=== PATIENT | female | born 1955 | race Caucasian/White ===

== ENCOUNTER 2020-11-15 00:45 | Emergency (ER) | payer OTHER, SELFPAY ==
--- NOTE | 2020-11-15 | ECG_ITS ---
Test Reason : ELEVATED TROP Blood Pressure : / mmHG Vent. Rate : 062 BPM Atrial Rate : 062 BPM P-R Int : 158 ms QRS Dur : 074 ms QT Int : 456 ms P-R-T Axes : 072 060 064 degrees QTc Int : 462 ms Normal sinus rhythm Normal ECG When compared with ECG of 21-JAN-2019 12:29, No significant change was found Referred By: Generic ED Physician Electronically Signed By:Jewel Willis
--- NOTE | 2020-11-15 | ECG_ITS ---
Test Reason : REPEAT Blood Pressure : / mmHG Vent. Rate : 062 BPM Atrial Rate : 062 BPM P-R Int : 150 ms QRS Dur : 072 ms QT Int : 432 ms P-R-T Axes : 065 049 086 degrees QTc Int : 438 ms Normal sinus rhythm Normal ECG When compared with ECG of 15-NOV-2020 09:45, No significant change was found Referred By: Jewel Willis Electronically Signed By:Jewel Willis
--- NOTE | ~2020-11-15 | CT_ITS ---
EXAMINATION: CT CHEST WITH CONTRAST CLINICAL INFORMATION: Chest pain. COMPARISON: Chest radiograph 11/15/2020. CT chest 05/12/2017. TECHNIQUE: Multidetector volumetric CT imaging of the chest was obtained after the administration of 65 mL of Omnipaque 350 intravenous contrast without immediate adverse reactions. Axial MIP volume rendering provided. Sagittal and coronal reformatted images were obtained. This CT examination was performed using dose optimization techniques as appropriate, variously including the following: *Automated exposure control *Adjustment of mA and/or kV according to patient size (this includes techniques or standardized protocols for targeted exams where dose is matched to indication/reason for exam; i.e. extremities or head) *Use of iterative reconstruction technique DLP: 214 mGy-cm FINDINGS: SUPERVISOR PATCHING: Unremarkable LUNGS: There are a few small subpleural cysts visualized within the right upper lobe. No overt consolidative disease. No discrete pulmonary nodule or mass. Minimal subsegmental atelectasis within the posterior basal segment of the right lower lobe. No pleural effusion or pneumothorax. Mild peribronchial thickening. The trachea and major airways are otherwise patent. MEDIASTINUM: The heart is unremarkable. No pericardial effusion. Scattered atheromatous calcification involves the aortic arch apex. Origins of the major aortic branches are patent. A right peritracheal lymph node measures up to 0.7 cm in short axis and there is a collection of a few small nonspecific aorticopulmonary window lymph nodes. AXILLA: No lymphadenopathy. UPPER ABDOMEN: There is a well marginated low-density cystic lesion located within the right lobe the liver that appears to have slightly increased in size when compared to the CT scan of the abdomen and pelvis from 05/10/2017, now measuring 2.5 cm in diameter. OSSEOUS STRUCTURES: There is no acute osseous finding. No worrisome lytic or blastic osseous lesion. CT/CT chest w con IMPRESSION: No discrete anatomic finding to provide an explanation for this patient's chest pain. No consolidative disease. No pleural or pericardial effusion.
--- NOTE | ~2020-11-15 | XR_ITS ---
EXAMINATION: XR CHEST CLINICAL INFORMATION: Chest pain COMPARISON: 01/21/2019 TECHNIQUE: 2 views of the chest were obtained. FINDINGS: Normal symmetric lung volumes. No parenchymal consolidation. No pleural effusion. No pneumothorax. Cardiomediastinal silhouette and pulmonary vascularity are within normal limits. Aorta is atherosclerotic. No acute osseous abnormalities. XR/XR chest 2V IMPRESSION: Unremarkable examination.
[2020-11-15 01:14] VITALS: BP 114/74; PULSE 77; RESP 16; TEMP 35.7; O2SAT 99; BMI 23.8
[2020-11-15 02:00] VITALS: BP 119/80; PULSE 67; RESP 17; O2SAT 100
[2020-11-15 02:04] LABS: Basophils Percent Auto 0.3 % (0-2); Eosinophils Absolute Auto 0.3 X10*3/uL (0.0-0.4); Eosinophils Percent Auto 4.8 % (0-4); Hematocrit 38.1 % (37-47); Hemoglobin 12.8 g/dl (12.0-16.0); Imm Gran Abs Auto 0.01 X10*3/uL (0.00-0.03); Imm Gran Pct Auto 0.2 % (0.0-0.4); Lymphocytes Absolute Auto 2.5 X10*3/uL (1.2-4.9); Lymphocytes Percent Auto 40.2 % (20-40); MANUAL DIFF FLAG NO; Mean Corpuscular HGB Conc 33.6 g/dl (31.0-35.0); Mean Corpuscular Hemoglobin 31.3 pg (27.0-33.0); Mean Corpuscular Volume 93.2 fL (80-98); Mean Platelet Volume 9.8 fL (9.4-12.3); Monocytes Absolute Auto 0.8 X10*3/uL (0.1-1.2); Monocytes Percent Auto 13.3 % (2-11); Neutrophils Absolute Auto 2.6 X10*3/uL (2.0-8.3); Neutrophils Percent Auto 41.2 % (45-73); Platelet Count 221 X10*3/uL (160-400); Red Blood Count 4.09 X10*6/uL (4.20-5.50); Red Cell Distribution Width 12.5 % (11.0-16.0); White Blood Count 6.3 X10*3/uL (4.8-10.8)
[2020-11-15 02:10] LABS: INTERNATIONAL NORM RATIO 0.9 (0.9-1.1); Prothrombin Time 9.8 SEC (9.9-13.0)
[2020-11-15 02:12] LABS: Glucose Urine UA NEG (NEG); Leukocyte Esterase Urine NEG (NEG); Nitrite Urine NEG (NEG); Urine Blood NEG (NEG); Urine Ketones NEG (NEG); Urine Protein TRACE MG/DL (NEG-TRACE)
[2020-11-15 02:13] LABS: Appearance Urine CLEAR; Color Urine DARK YELLOW; UACC Culture Trigger NO
[2020-11-15 02:27] LABS: Alanine Aminotransferase 13 U/L (0-31); Albumin Level 3.8 g/dL (3.5-5.0); Alkaline Phosphatase 106 U/L (39-117); Anion Gap 11 (12-20); Aspartate Amino Transferase 20 U/L (5-31); Bilirubin Total 0.2 mg/dL (0.0-1.0); Blood Urea Nitrogen 20 mg/dL (9-16); Calcium 8.6 mg/dL (8.4-10.2); Carbon Dioxide 26 mmol/L (22-29); Chloride 102 mmol/L (96-108); Estimated Glomerular Filt Rate 43; Glucose Random 98 mg/dL (60-115); Lipase 32 U/L (8-78); Potassium 4.3 mmol/L (3.3-5.1); Sodium 135 mmol/L (135-145); Total Protein 6.5 g/dL (6.5-8.0)
[2020-11-15 02:31] LABS: Troponin-I High Sensitivity 32.1 ng/L (<3.5-17.0)
--- NOTE | 2020-11-15 03:52 | ED_ITS ---
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 last night that she states is sharp/burning in nature and radiates into her left upper and left lower e xtremity with associated dizziness, nausea, shortness of breath and the pain does not worsen with deep inspiration but worsens with movement. She denies any fever, chills, sore throat, recent cough but states she has also had some nausea but denies any diarrhea or urinary symptoms. Related Data Allergies Allergy/AdvReac Type Severity Reaction Status Date / Time penicillin V Allergy Unknown Verified 08/19/20 13:56 Penicillins [PENICILLINS] Allergy Unknown STOPS Unverified 08/19/20 13:56 BREATHING shellfish derived Allergy Unknown SWELLING/THROAT Unverified 08/19/20 13:56 [SHELLFISH DERIVED] CLOSES Sulfa (Sulfonamide Allergy Unknown THROAT Unverified 08/19/20 13:56 Antibiotics) CLOSES [SULFA (SULFONAMIDE ANTIBIOTICS)] aripiprazole [From ABILIFY] AdvReac Severe dystonic Unverified 08/19/20 13:56 reaction sulfa Allergy Unknown Uncoded 08/19/20 13:56 Review of Systems Review of Systems: Pertinent positives and negatives as stated in HPI 10 point review of systems is otherwise negative. PMFSH Past Medical History Source: nursing notes reviewed Social History Social History Advance Directives: No Patient : No Physical Exam Vital Signs: Vital Signs: Last Vital Signs Temp 96.3 F L 11/15/20 01:14 Pulse 69 11/15/20 05:47 Resp 22 H 11/15/20 05:47 BP 121/69 11/15/20 05:47 Pulse Ox 97 11/15/20 05:47 Body Mass Index 23.8 VITAL SIGNS: Reviewed. GENERAL: Well developed, well nourished, in no acute distress. HEAD: Normocephalic/atraumatic EYES: PERRLA, EOMI OROPHARYNX: no oral lesions noted, posterior pharynx clear, dry mucosa NECK: Supple, no adenopathy LUNGS: Normal breath sounds. No adventitious sounds or accessory muscle use. SpO2<96>, there is noted chest wall tenderness on palpation over the sternum as well as the epigastric area. CARDIOVASCULAR: Regular rate and rhythm without noted murmurs, no JVD or lower extremity edema, symmetrical pulses noted ABDOMEN: Soft, non-tender, non-distended with bowel sounds. MUSCULOSKELETAL: No tenderness, deformities, or effusions noted on gross inspection. EXTREMITIES: No cyanosis, clubbing or edema. SKIN: Inspection of the skin reveals no rashes NEUROLOGIC: Alert and oriented x 4. Strength and sensation to light touch were grossly intact x 4. Course Course Course Narrative: 65-year-old female with history and clinical presentation suggestive of pancreatitis, gastritis, pleurisy less likely pneumonia. Review of all investigations demonstrates elevated initial troponin with a greater than 50% delta increase in the 2nd troponin, however both EKGs are without changes or abnormalities. Chest x-ray negative for acute findings. This was discuss with cardiology who does not feel that this is consistent with ACS or and STEMI. Pain remains reproducible on palpation at lower sternum and patient reports that the GI cocktail she received helped her stomach but that the pain on the sternum still remains. Will place lidocaine patch and pursue CT scan. Signed out to Dr Bennett. [facility] - Chest Pain Lab Data Result diagrams: 11/15/20 01:58 11/15/20 01:58 Labs: Lab Results 11/15/20 11/15/20 11/15/20 Range/Units 01:58 01:58 01:58 WBC 6.3 (4.8-10.8) X10*3/uL RBC 4.09 L (4.20-5.50) X10*6/uL Hgb 12.8 (12.0-16.0) g/dl Hct 38.1 (37-47) % MCV 93.2 (80-98) fL MCH 31.3 (27.0-33.0) pg MCHC 33.6 (31.0-35.0) g/dl RDW 12.5 (11.0-16.0) % Plt Count 221 (160-400) X10*3/uL MPV 9.8 (9.4-12.3) fL Immature Gran % (Auto) 0.2 (0.0-0.4) % Neut % (Auto) 41.2 L (45-73) % Lymph % (Auto) 40.2 H (20-40) % [place] % (Auto) 13.3 H (2-11) % Eos % (Auto) 4.8 H (0-4) % Baso % (Auto) 0.3 (0-2) % Lymph # (Auto) 2.5 (1.2-4.9) X10*3/uL [place] # (Auto) 0.8 (0.1-1.2) X10*3/uL Eos # (Auto) 0.3 (0.0-0.4) X10*3/uL Baso # (Auto) 0.0 (0.0-0.2) X10*3/uL Abs Immat Gran (auto) 0.01 (0.00-0.03) X10*3/uL Absolute Neuts (auto) 2.6 (2.0-8.3) X10*3/uL Absolute Nucleated RBC 0.000 (0.0-0.012) X10*3/uL Nucleated RBC % (auto) 0.0 (0.0-0.2) /100WBC PT (9.9-13.0) SEC INR (0.9-1.1) Sodium 135 (135-145) mmol/L Potassium 4.3 (3.3-5.1) mmol/L Chloride 102 (96-108) mmol/L Carbon Dioxide 26 (22-29) mmol/L Anion Gap 11 L (12-20) BUN 20 H (9-16) mg/dL Creatinine 1.25 (0.5-1.4) mg/dL Estim Creat Clear Calc 36.0 Estimated GFR 43 Random Glucose 98 (60-115) mg/dL Calcium 8.6 (8.4-10.2) mg/dL Total Bilirubin 0.2 (0.0-1.0) mg/dL AST 20 (5-31) U/L ALT 13 (0-31) U/L Alkaline Phosphatase 106 (39-117) U/L Troponin I High Sens 32.1 H* (<3.5-17.0) ng/L Total Protein 6.5 (6.5-8.0) g/dL Albumin 3.8 (3.5-5.0) g/dL Lipase 32 (8-78) U/L Urine Color Urine Appearance Urine pH (5.0-8.0) Ur Specific [place] (1.005-1.025) Urine Protein (NEG-TRACE) MG/DL Urine Glucose (UA) (NEG) MG/DL Urine Ketones (NEG) MG/DL Urine Blood (NEG) Urine Nitrite (NEG) Ur Leukocyte Esterase (NEG) 11/15/20 11/15/20 11/15/20 Range/Units 01:58 02:05 05:15 WBC (4.8-10.8) X10*3/uL RBC (4.20-5.50) X10*6/uL Hgb (12.0-16.0) g/dl Hct (37-47) % MCV (80-98) fL MCH (27.0-33.0) pg MCHC (31.0-35.0) g/dl RDW (11.0-16.0) % Plt Count (160-400) X10*3/uL MPV (9.4-12.3) fL Immature Gran % (Auto) (0.0-0.4) % Neut % (Auto) (45-73) % Lymph % (Auto) (20-40) % [place] % (Auto) (2-11) % Eos % (Auto) (0-4) % Baso % (Auto) (0-2) % Lymph # (Auto) (1.2-4.9) X10*3/uL [place] # (Auto) (0.1-1.2) X10*3/uL Eos # (Auto) (0.0-0.4) X10*3/uL Baso # (Auto) (0.0-0.2) X10*3/uL Abs Immat Gran (auto) (0.00-0.03) X10*3/uL Absolute Neuts (auto) (2.0-8.3) X10*3/uL Absolute Nucleated RBC (0.0-0.012) X10*3/uL Nucleated RBC % (auto) (0.0-0.2) /100WBC PT 9.8 L (9.9-13.0) SEC INR 0.9 (0.9-1.1) Sodium (135-145) mmol/L Potassium (3.3-5.1) mmol/L Chloride (96-108) mmol/L Carbon Dioxide (22-29) mmol/L Anion Gap (12-20) BUN (9-16) mg/dL Creatinine (0.5-1.4) mg/dL Estim Creat Clear Calc Estimated GFR Random Glucose (60-115) mg/dL Calcium (8.4-10.2) mg/dL Total Bilirubin (0.0-1.0) mg/dL AST (5-31) U/L ALT (0-31) U/L Alkaline Phosphatase (39-117) U/L Troponin I High Sens 66.5 H* D (<3.5-17.0) ng/L Total Protein (6.5-8.0) g/dL Albumin (3.5-5.0) g/dL Lipase (8-78) U/L Urine Color DARK YELLOW Urine Appearance CLEAR Urine pH 6.0 (5.0-8.0) Ur Specific [place] 1.020 (1.005-1.025) Urine Protein TRACE (NEG-TRACE) MG/DL Urine Glucose (UA) NEG (NEG) MG/DL Urine Ketones NEG (NEG) MG/DL Urine Blood NEG (NEG) Urine Nitrite NEG (NEG) Ur Leukocyte Esterase NEG (NEG) Discharge Plan Discharge Clinical Impression: Atypical chest pain, Elevated troponin level
[2020-11-15 03:54] VITALS: BP 110/68; PULSE 65; RESP 15; O2SAT 96
[2020-11-15] MEDS: Lidocaine HCl Viscous 2 % 15 ML SOLUTION 10 ML MUCOUS MEM (03:55)
[2020-11-15] MEDS: Magnesium Hydrox/Alum Hydrox 30 ML ORAL.SUSP PO (03:55)
[2020-11-15 05:46] LABS: Troponin-I High Sensitivity 66.5 ng/L (<3.5-17.0)
[2020-11-15 05:47] VITALS: BP 121/69; PULSE 69; RESP 22; O2SAT 97
[2020-11-15] MEDS: Acetaminophen 325 MG TABLET 975 MG PO (05:47)
[2020-11-15] MEDS: Aspirin 81 MG TAB.CHEW 324 MG PO (06:23)
[2020-11-15] MEDS: Lidocaine 4 % Patch ADH..PATCH 1 PATCH TRANSDERMA (06:45)
[2020-11-15] MEDS: iohexoL 350 MG/ML 100 ML INFUS..BTL 65 ML IV (07:41)
[2020-11-15] MEDS: Morphine Sulfate 4 MG/ML CARTRIDGE IVPUSH (08:00)
[2020-11-15 08:41] VITALS: BP 104/66; PULSE 63; RESP 18; TEMP 36.5; O2SAT 98
--- NOTE | 2020-11-15 08:44 | PHA.MEDREC ---
Pharmacy Consult ? Medication Reconciliation Pharmacy has completed the medication reconciliation.
[2020-11-15 09:07] LABS: D Dimer < 200 NG/ML
[2020-11-15 09:29] LABS: Troponin-I High Sensitivity 93.9 ng/L (<3.5-17.0)
--- NOTE | 2020-11-15 09:32 | P.HPHOSP_ITS ---
History of Present Illness Date of Service: 11/15/20 Chief Complaint: Chest pain 65 year old female with with lupus that is not active presents with chest pain that has been ongoing since Fridy, that is 4 days, ago. She describes intermittent mid sternal chest pain of 8/10 intensity, no radiating, not necessary associated with sob, or diaphoresis, did have some episode of diarrhea and vomiting yesterday but not necessary associated with the chest pain. Work up show incremental rise in troponin I 32-->66-->93. ECG is normal. Review of Systems Review of Systems: Gen: no fever Resp: no sob, no cough CV: no chest, no [place], no leg edema GI: No n/v, no abd pain Neuro: No confusion Yes all other systems are reviewed and are negative [facility] Medical History (Updated 11/15/20 @ 09:49 by Hernan Buchanan MD) Lupus Pertinent family history: Mother had heard disease Social History (Updated 11/15/20 @ 10:03 by Hernan Buchanan MD) Patient Tobacco Use Status: Former Tobacco user Advance Directives: No Patient : No Meds Allergies Allergy/AdvReac Type Severity Reaction Status Date / Time penicillin V Allergy Unknown Verified 08/19/20 13:56 Penicillins [PENICILLINS] Allergy Unknown STOPS Unverified 08/19/20 13:56 BREATHING shellfish derived Allergy Unknown SWELLING/THROAT Unverified 08/19/20 13:56 [SHELLFISH DERIVED] CLOSES Sulfa (Sulfonamide Allergy Unknown THROAT Unverified 08/19/20 13:56 Antibiotics) CLOSES [SULFA (SULFONAMIDE ANTIBIOTICS)] aripiprazole [From ABILIFY] AdvReac Severe dystonic Unverified 08/19/20 13:56 reaction sulfa Allergy Unknown Uncoded 08/19/20 13:56 Active Medications: Current Medications Generic Name Dose Route Start Last Admin Trade Name Freq PRN Reason Stop Dose Admin Pharmacy Consult 1 each 11/15/20 06:52 Consult Rx Perform Med Rec MISCELLANE ONCE PRN Consult order Home Medications Medication Instructions Recorded Confirmed Last Taken Type albuterol sulfate 1 - 2 vial INHALATION Q4H PRN 11/15/20 11/15/20 Unknown History albuterol sulfate 90 mcg/actuation 2 puff INHALATION Q4H PRN 11/15/20 11/15/20 Unknown History aerosol inhaler aspirin 81 mg tablet,delayed 1 tab PO DAILY 11/15/20 11/15/20 11/14/20 History release cyclobenzaprine 10 mg tablet 1 tab PO BID PRN 11/15/20 11/15/20 Unknown History diphenhydramine HCl 25 mg capsule 1 cap PO Q12H PRN 11/15/20 11/15/20 Unknown History (Banophen) duloxetine 30 mg capsule,delayed 1 cap PO QAM 11/15/20 11/15/20 11/14/20 History release (Cymbalta) duloxetine 60 mg capsule,delayed 1 cap PO QAM 11/15/20 11/15/20 11/14/20 History release (Cymbalta) fluticasone propionate 50 2 spray INTRANASAL DAILY 11/15/20 11/15/20 11/14/20 History mcg/actuation nasal spray,suspension folic acid 1 mg tablet 1 tab PO DAILY 11/15/20 11/15/20 11/14/20 History gabapentin 400 mg capsule 1 cap PO BID 11/15/20 11/15/20 11/14/20 History nicotine (polacrilex) 2 mg gum 1 ea PO Q2H PRN 11/15/20 11/15/20 Unknown History (Nicorette) nicotine 7 mg/24 hr daily 1 patch TOPICAL DAILY 11/15/20 11/15/20 Unknown History transdermal patch (Nicoderm CQ) olanzapine 7.5 mg tablet 1 tab PO BEDTIME 11/15/20 11/15/20 11/14/20 History omeprazole 40 mg capsule,delayed 1 cap PO DAILY 11/15/20 11/15/20 11/14/20 History release propranolol 120 mg capsule,24 1 cap PO DAILY 11/15/20 11/15/20 11/14/20 History hr,extended release sulindac 200 mg tablet 1 tab PO BID PRN 11/15/20 11/15/20 Unknown History trazodone 100 mg tablet 1 - 2 tab PO BEDTIME PRN 11/15/20 11/15/20 Unknown History Physical Exam Vital Signs and Narrative: Vital Signs: Last Vital Signs Temp 97.7 F 11/15/20 08:41 Pulse 63 11/15/20 08:41 Resp 18 11/15/20 08:41 BP 104/66 11/15/20 08:41 Pulse Ox 98 11/15/20 08:41 Body Mass Index 23.8 Constitutional Awake and Alert, No apparent distress Neck Supple, No lymphadenopathy Cardiovascular RRR, No M/R/G, S1 S2, No S3 S4, No pedal edema Respiratory Lungs clear, No respiratory distress Gastrointestinal Non tender, Non-distended Skin No rash Neurological Alert & oriented x3 Psychological Appropriate affect Results Labs CBC and Chem 7: 11/15/20 01:58 11/15/20 01:58 Labs: Laboratory Results - last 24 hr 11/15/20 11/15/20 11/15/20 01:58 01:58 01:58 MCV 93.2 MCH 31.3 MCHC 33.6 RDW 12.5 Plt Count 221 MPV 9.8 Immature Gran % (Auto) 0.2 Neut % (Auto) 41.2 L Lymph % (Auto) 40.2 H [place] % (Auto) 13.3 H Eos % (Auto) 4.8 H Baso % (Auto) 0.3 Lymph # (Auto) 2.5 [place] # (Auto) 0.8 Eos # (Auto) 0.3 Baso # (Auto) 0.0 Abs Immat Gran (auto) 0.01 Absolute Neuts (auto) 2.6 Absolute Nucleated RBC 0.000 Nucleated RBC % (auto) 0.0 PT INR D-Dimer Anion Gap 11 L Estim Creat Clear Calc 36.0 Estimated GFR 43 Random Glucose 98 Calcium 8.6 Total Bilirubin 0.2 AST 20 ALT 13 Alkaline Phosphatase 106 Troponin I High Sens 32.1 H* Total Protein 6.5 Albumin 3.8 Lipase 32 Urine Color Urine Appearance Urine pH Ur Specific [place] Urine Protein Urine Glucose (UA) Urine Ketones Urine Blood Urine Nitrite Ur Leukocyte Esterase 11/15/20 11/15/20 11/15/20 01:58 02:05 05:15 MCV MCH MCHC RDW Plt Count MPV Immature Gran % (Auto) Neut % (Auto) Lymph % (Auto) [place] % (Auto) Eos % (Auto) Baso % (Auto) Lymph # (Auto) [place] # (Auto) Eos # (Auto) Baso # (Auto) Abs Immat Gran (auto) Absolute Neuts (auto) Absolute Nucleated RBC Nucleated RBC % (auto) PT 9.8 L INR 0.9 D-Dimer Anion Gap Estim Creat Clear Calc Estimated GFR Random Glucose Calcium Total Bilirubin AST ALT Alkaline Phosphatase Troponin I High Sens 66.5 H* D Total Protein Albumin Lipase Urine Color DARK YELLOW Urine Appearance CLEAR Urine pH 6.0 Ur Specific [place] 1.020 Urine Protein TRACE Urine Glucose (UA) NEG Urine Ketones NEG Urine Blood NEG Urine Nitrite NEG Ur Leukocyte Esterase NEG 11/15/20 11/15/20 08:39 08:39 MCV MCH MCHC RDW Plt Count MPV Immature Gran % (Auto) Neut % (Auto) Lymph % (Auto) [place] % (Auto) Eos % (Auto) Baso % (Auto) Lymph # (Auto) [place] # (Auto) Eos # (Auto) Baso # (Auto) Abs Immat Gran (auto) Absolute Neuts (auto) Absolute Nucleated RBC Nucleated RBC % (auto) PT INR D-Dimer < 200 Anion Gap Estim Creat Clear Calc Estimated GFR Random Glucose Calcium Total Bilirubin AST ALT Alkaline Phosphatase Troponin I High Sens 93.9 H* Total Protein Albumin Lipase Urine Color Urine Appearance Urine pH Ur Specific [place] Urine Protein Urine Glucose (UA) Urine Ketones Urine Blood Urine Nitrite Ur Leukocyte Esterase Imaging Radiologist's Impressions: Impressions Chest X-Ray 11/15/20 01:32 IMPRESSION: Unremarkable examination. Chest CT 11/15/20 06:12 IMPRESSION: No discrete anatomic finding to provide an explanation for this patient's chest pain. No consolidative disease. No pleural or pericardial effusion. Assessment and Plan (1) Atypical chest pain: Status: Acute (2) Elevated troponin level: Status: Acute 65/F female with Lupus with chest pain and elevated troponin, normal ECG Plan: NSTEMI, Anticoagulation, ASA, Stain, BB, Echo, cardiology consult. Check Lipids Quality Stroke Does the patient have a stroke diagnosis?: No VTE Prior VTE?: No VTE Risk Level:: Medical - moderate - high VTE Device Contraindication: N/A - Device Ordered VTE Drug Contraindication: N/A - Med Ordered
--- NOTE | 2020-11-15 09:35 | ECG_ITS ---
Test Reason : REPEAT Blood Pressure : / mmHG Vent. Rate : 058 BPM Atrial Rate : 058 BPM P-R Int : 156 ms QRS Dur : 072 ms QT Int : 466 ms P-R-T Axes : 073 042 064 degrees QTc Int : 457 ms Sinus bradycardia Otherwise normal ECG When compared with ECG of 15-NOV-2020 05:59, No significant change was found Referred By: Hernan Genao Electronically Signed By:Jewel Willis
--- NOTE | 2020-11-15 09:55 | CA_ITS ---
Transthoracic Echocardiogram Patient (Last, First, Middle): Kasandra Hernadez, Gender: Female Date of : 1955 Age: 65 Procedure Date: 11/15/2020 Procedure Type: Transthoracic Echocardiogram Location: ER Height: 157.48 cm Weight: 58.97 kg BSA: 1.59 m2 Heart Rate: bpm BP: 110 / 66 mmHg Cytogenetics Technologist: JOAN Referring MD: Hernan Buchanan MD Symptoms: nSTEMI Conclusions: - The left ventricular systolic function is low normal. The visually estimated ejection fraction is between 50-55%. - The apical septum is hypokinetic. - The mid inferoseptal and mid anteroseptal segments are akinetic. Findings Left Ventricle Normal left ventricular cavity size. There is normal left ventricular wall thickness. The left ventricular systolic function is low normal. The visually estimated ejection fraction is between 50-55%. There is evidence of regional wall motion abnormalities. Diastolic function is indeterminate on the basis of available data. E/E prime ratio is between 8 and 15 consistent with indeterminate filling pressures. Wall Motion Rest Echo Findings The apical septum is hypokinetic. The mid inferoseptal and mid anteroseptal segments are akinetic. Right Ventricle Normal right ventricular cavity size and systolic function. Atria Both atria are normal in size. Aortic Valve Normal aortic valve structure and function. There is no aortic valve stenosis. There is no aortic valve regurgitation. Mitral Valve Normal mitral valve structure and function. There is trace mitral valve regurgitation. There is no mitral valve stenosis. Pulmonic Valve The pulmonic valve was not well visualized. Tricuspid Valve Normal tricuspid valve structure. There is trace tricuspid valve regurgitation. Normal right atrial pressure. There is no evidence of pulmonary hypertension. Great Vessels All visible segments of the aorta are normal in size. The pulmonary artery was not well visualized. Venous The inferior vena cava is normal in size and collapses greater than 50% with inspiration. Pericardium/Pleural There is no evidence of pericardial effusion. Prior Study Comparison No prior study available for comparison. Measurements 2D Linear Measurements IVSd: 1.02 0.6-0.9/0.6-1.0 cm LVIDd: 3.93 3.9-5.3/4.2-5.9 cm LVIDd Index: 2.47 2.4-3.2/2.2-3.1 cm/m2 LVIDs: 2.81 2.0-3.6 cm LVPWd: 0.70 0.7-1.1 cm Ao Root: 2.70 2.1-3.5 cm LA Diam: 3.00 2.7-3.8/3.0-4.0 cm LAIDs Index: 1.89 1.5-2.3 cm/m2 LV Mass: 124.25 67-162/88-224 g LV Mass Index: 78.15 43-95/49-115 g/m2 LVOT Diam: 1.90 3.0+(-)1.3 cm 2D Systolic Function EF 4C: 43.20 >55% EF 2C: 48.10 >55% Mitral Valve MV Pk E: 0.51 MV PK A: 0.48 MV Decel Time: 251.00 E/A: 1.00 E'Lateral: 4.90 E'Medial: 4.35 E/E' Med: 11.70 E/E' Lat: 10.40 PHT: 74.00 MVA PHT: 2.97 Decel [place]: 2.02 Aortic Valve AoV Pk Mayo: 1.10 AoV Pk Grad: 5.00 LVOT LVOT Pk Mayo: 0.82 LVOT Mn [place]: 0.52 LVOT VTI: 0.18 LVOT Pk Grad: 3.00 LVOT Mn Grad: 1.00 LVOT Diam: 1.90 LVOT Area: 2.84 Diastolic Function MV Pk E: 0.51 MV Pk A: 0.48 E/A: 1.00 E'Medial: 4.35 E/E' Med: 11.70 E' Laterial: 4.90 E/E' Lat: 10.40 Right Ventricle TAPSE (mm): 1.70 Tricuspid Valve TR Pk [place]: 2.27 TR Pk Grad: 21.00 RA Press: 3.00 RVSP: 24.00 Great Vessels Aorta Ao Root-2D: 2.70 2.0-3.7 cm Ao Asc: 2.90 2.1-3.4 cm Updated in Other Vendor System with Status of Final Jewel Willis MD electronically signed on 11/15/2020 1:53:17 PM with status of Final
[2020-11-15 10:30] LABS: COVID-19 Test Negative (Negative)
[2020-11-15 10:48] LABS: Cholesterol 182 mg/dL; HDL Cholesterol 47 mg/dL; LDL Cholesterol Calculated 105 mg/dl; Triglycerides 151 mg/dL
[2020-11-15] MEDS: Folic Acid 1 MG TABLET PO (11:30)
[2020-11-15] MEDS: DULoxetine HCl 30 MG CAPSULE.DR PO (11:30)
[2020-11-15] MEDS: DULoxetine HCl 60 MG CAPSULE.DR PO (11:30)
[2020-11-15] MEDS: Gabapentin 400 MG CAPSULE PO (11:30)
[2020-11-15] MEDS: Omeprazole 40 MG CAPSULE.DR PO (11:33)
[2020-11-15] MEDS: diphenhydrAMINE HCL 25 MG TABLET PO (11:35)
--- NOTE | 2020-11-15 11:35 | P.CONCA_ITS ---
History of Present Illness History of Present Illness Date of Service: 11/15/20 Requesting physician: Hernan Buchanan Chief complaint: CP, + troponins Narrative: 65-year-old female was background history of lupus what tobacco abuse and lung disease who is presenting for chest pain. Since Saturday she has been experiencing a pressure-like feeling on the left side of her chest which was radiating to left arm. She said she would have only for few seconds but the pa in would come back. Since yesterday she also has a burning sensation in her chest. She also has reproducible chest pain. With these symptoms he presented to us at [facility]. EKG did not show any significant changes. Her troponin levels were abnormal and her troponins were 32, 66 and 93. She also had a CT chest but it was not a PE protocol which did not show any significant issues. She is saying she still has some chest discomfort now. She is saying it is worse with lying down and better if she turns to the side or sits up. No bleeding issues. [facility] Past Medical History Medical History (Updated 11/15/20 @ 09:49 by Hernan Buchanan MD) Lupus Social History Social History (Updated 11/15/20 @ 10:03 by Hernan Buchanan MD) Patient Tobacco Use Status: Former Tobacco user Advance Directives: No Patient : No Meds Allergies Allergy/AdvReac Type Severity Reaction Status Date / Time penicillin V Allergy Unknown Verified 08/19/20 13:56 Penicillins [PENICILLINS] Allergy Unknown STOPS Unverified 08/19/20 13:56 BREATHING shellfish derived Allergy Unknown SWELLING/THROAT Unverified 08/19/20 13:56 [SHELLFISH DERIVED] CLOSES Sulfa (Sulfonamide Allergy Unknown THROAT Unverified 08/19/20 13:56 Antibiotics) CLOSES [SULFA (SULFONAMIDE ANTIBIOTICS)] aripiprazole [From ABILIFY] AdvReac Severe dystonic Unverified 08/19/20 13:56 reaction sulfa Allergy Unknown Uncoded 08/19/20 13:56 Active Medications: Current Medications Generic Name Dose Route Start Last Admin Trade Name Freq PRN Reason Stop Dose Admin Acetaminophen 650 mg 11/15/20 09:56 Acetaminophen 325 Mg Tablet PO Q6H PRN Pain, Mild (Pain Scale 1-3) Albuterol Sulfate 2.5 mg 11/15/20 09:59 Albuterol Sulfate (0.083%) 2.5 Mg/3 Ml Vial.Neb INHALE Q4H PRN wheezing Albuterol Sulfate 2 puff 11/15/20 09:59 Albuterol Sulfate 90 Mcg 8 Gm Inhaler INHALE Q4H PRN wheezing Aspirin 81 mg 11/16/20 09:00 Aspirin Enteric Coated 81 Mg Tablet. PO DAILY MELISSA Cyclobenzaprine HCl 10 mg 11/15/20 09:59 Cyclobenzaprine Hcl 10 Mg Tablet PO BID PRN muscle spasm Diphenhydramine HCl 25 mg 11/15/20 09:59 Diphenhydramine Hcl 25 Mg Tablet PO Q12H PRN DYSTONIA/ALLERGIES Duloxetine HCl 30 mg 11/15/20 10:00 11/15/20 11:30 Duloxetine Hcl 30 Mg Capsule. PO 30 mg DAILY MELISSA Administration Duloxetine HCl 60 mg 11/15/20 10:00 11/15/20 11:30 Duloxetine Hcl 60 Mg Capsule. PO 60 mg DAILY [facility] Administration Enoxaparin Sodium 60 mg 11/15/20 11:00 Enoxaparin Sodium 60 Mg/0.6 Ml Syringe SUBCUT Q12H [facility] Fluticasone Propionate 2 spray 11/15/20 10:15 11/15/20 11:32 Fluticasone Propionate Nasal 16 Gm [place] NOSTRIL-B Not Given DAILY [facility] Folic Acid 1 mg 11/15/20 10:15 11/15/20 11:30 Folic Acid 1 Mg Tablet PO 1 mg DAILY MELISSA Administration Gabapentin 400 mg 11/15/20 10:15 11/15/20 11:30 Gabapentin 400 Mg Capsule PO 400 mg BID MELISSA Administration Magnesium Hydroxide 30 ml 11/15/20 09:56 Milk Of Magnesia 30 Ml Oral.Susp PO DAILY PRN Constipation Olanzapine 7.5 mg 11/15/20 21:00 Olanzapine 7.5 Mg Tablet PO BEDTIME [facility] Omeprazole 40 mg 11/15/20 10:15 11/15/20 11:33 Omeprazole 40 Mg Capsule. PO 40 mg DAILY [facility] Administration Pharmacy Consult 1 each 11/15/20 06:52 Consult Rx Perform Med Rec MISCELLANE ONCE PRN Consult order Propranolol HCl 120 mg 11/16/20 09:00 Propranolol Hcl [place] 60 Mg Cap.Sa.24h PO DAILY [facility] Protocol Sodium Chloride 3 ml 11/15/20 16:00 0.9 % Sodium Chloride Flush 3 Ml Syringe IVFLUSH QSHIFT [facility] Trazodone HCl 100 mg 11/15/20 21:00 Trazodone Hcl 100 Mg Tablet PO BEDTIME PRN insomnia Home Medications Medication Instructions Recorded Confirmed Last Taken Type albuterol sulfate 1 - 2 vial INHALATION Q4H PRN 11/15/20 11/15/20 Unknown History albuterol sulfate 90 mcg/actuation 2 puff INHALATION Q4H PRN 11/15/20 11/15/20 Unknown History aerosol inhaler aspirin 81 mg tablet,delayed 1 tab PO DAILY 11/15/20 11/15/20 11/14/20 History release cyclobenzaprine 10 mg tablet 1 tab PO BID PRN 11/15/20 11/15/20 Unknown History diphenhydramine HCl 25 mg capsule 1 cap PO Q12H PRN 11/15/20 11/15/20 Unknown History (Banophen) duloxetine 30 mg capsule,delayed 1 cap PO QAM 11/15/20 11/15/20 11/14/20 History release (Cymbalta) duloxetine 60 mg capsule,delayed 1 cap PO QAM 11/15/20 11/15/20 11/14/20 History release (Cymbalta) fluticasone propionate 50 2 spray INTRANASAL DAILY 11/15/20 11/15/20 11/14/20 History mcg/actuation nasal spray,suspension folic acid 1 mg tablet 1 tab PO DAILY 11/15/20 11/15/20 11/14/20 History gabapentin 400 mg capsule 1 cap PO BID 11/15/20 11/15/20 11/14/20 History nicotine (polacrilex) 2 mg gum 1 ea PO Q2H PRN 11/15/20 11/15/20 Unknown History (Nicorette) nicotine 7 mg/24 hr daily 1 patch TOPICAL DAILY 11/15/20 11/15/20 Unknown History transdermal patch (Nicoderm CQ) olanzapine 7.5 mg tablet 1 tab PO BEDTIME 11/15/20 11/15/20 11/14/20 History omeprazole 40 mg capsule,delayed 1 cap PO DAILY 11/15/20 11/15/20 11/14/20 History release propranolol 120 mg capsule,24 1 cap PO DAILY 11/15/20 11/15/20 11/14/20 History hr,extended release sulindac 200 mg tablet 1 tab PO BID PRN 11/15/20 11/15/20 Unknown History trazodone 100 mg tablet 1 - 2 tab PO BEDTIME PRN 11/15/20 11/15/20 Unknown History Physical Exam Vital Signs: Vital Signs: Last Vital Signs Temp 97.7 F 11/15/20 08:41 Pulse 63 11/15/20 08:41 Resp 18 11/15/20 08:41 BP 104/66 11/15/20 08:41 Pulse Ox 98 11/15/20 08:41 Body Mass Index 23.8 GENERAL APPEARANCE: in no acute distress, pleasant. NECK: no carotid bruit, no jugular venous distention. SKIN: no suspicious lesions, warm and dry. HEART: no murmurs, regular rate and rhythm. No pericardial friction rub. LUNGS: clear to auscultation bilaterally. ABDOMEN: soft, nontender. EXTREMITIES: no edema. PERIPHERAL PULSES: equal. NEUROLOGIC: No gross deficits, AAO X 3 Results Labs and Meds Result diagrams: 11/15/20 01:58 11/15/20 01:58 Lab results: Laboratory Results - last 24 hr 11/15/20 11/15/20 11/15/20 01:58 01:58 01:58 WBC 6.3 RBC 4.09 L Hgb 12.8 Hct 38.1 MCV 93.2 MCH 31.3 MCHC 33.6 RDW 12.5 Plt Count 221 MPV 9.8 Immature Gran % (Auto) 0.2 Neut % (Auto) 41.2 L Lymph % (Auto) 40.2 H [place] % (Auto) 13.3 H Eos % (Auto) 4.8 H Baso % (Auto) 0.3 Lymph # (Auto) 2.5 [place] # (Auto) 0.8 Eos # (Auto) 0.3 Baso # (Auto) 0.0 Abs Immat Gran (auto) 0.01 Absolute Neuts (auto) 2.6 Absolute Nucleated RBC 0.000 Nucleated RBC % (auto) 0.0 PT INR D-Dimer Sodium 135 Potassium 4.3 Chloride 102 Carbon Dioxide 26 Anion Gap 11 L BUN 20 H Creatinine 1.25 Estim Creat Clear Calc 36.0 Estimated GFR 43 Random Glucose 98 Calcium 8.6 Total Bilirubin 0.2 AST 20 ALT 13 Alkaline Phosphatase 106 Troponin I High Sens 32.1 H* Total Protein 6.5 Albumin 3.8 Triglycerides 151 Cholesterol 182 LDL Cholesterol, Calc 105 HDL Cholesterol 47 Lipase 32 Urine Color Urine Appearance Urine pH Ur Specific [place] Urine Protein Urine Glucose (UA) Urine Ketones Urine Blood Urine Nitrite Ur Leukocyte Esterase COVID-19 (RICK) COVID-19 Clin Com 11/15/20 11/15/20 11/15/20 01:58 02:05 05:15 WBC RBC Hgb Hct MCV MCH MCHC RDW Plt Count MPV Immature Gran % (Auto) Neut % (Auto) Lymph % (Auto) [place] % (Auto) Eos % (Auto) Baso % (Auto) Lymph # (Auto) [place] # (Auto) Eos # (Auto) Baso # (Auto) Abs Immat Gran (auto) Absolute Neuts (auto) Absolute Nucleated RBC Nucleated RBC % (auto) PT 9.8 L INR 0.9 D-Dimer Sodium Potassium Chloride Carbon Dioxide Anion Gap BUN Creatinine Estim Creat Clear Calc Estimated GFR Random Glucose Calcium Total Bilirubin AST ALT Alkaline Phosphatase Troponin I High Sens 66.5 H* D Total Protein Albumin Triglycerides Cholesterol LDL Cholesterol, Calc HDL Cholesterol Lipase Urine Color DARK YELLOW Urine Appearance CLEAR Urine pH 6.0 Ur Specific [place] 1.020 Urine Protein TRACE Urine Glucose (UA) NEG Urine Ketones NEG Urine Blood NEG Urine Nitrite NEG Ur Leukocyte Esterase NEG COVID-19 (RICK) COVID-19 Clin Com 11/15/20 11/15/20 11/15/20 08:39 08:39 09:48 WBC RBC Hgb Hct MCV MCH MCHC RDW Plt Count MPV Immature Gran % (Auto) Neut % (Auto) Lymph % (Auto) [place] % (Auto) Eos % (Auto) Baso % (Auto) Lymph # (Auto) [place] # (Auto) Eos # (Auto) Baso # (Auto) Abs Immat Gran (auto) Absolute Neuts (auto) Absolute Nucleated RBC Nucleated RBC % (auto) PT INR D-Dimer < 200 Sodium Potassium Chloride Carbon Dioxide Anion Gap BUN Creatinine Estim Creat Clear Calc Estimated GFR Random Glucose Calcium Total Bilirubin AST ALT Alkaline Phosphatase Troponin I High Sens 93.9 H* Total Protein Albumin Triglycerides Cholesterol LDL Cholesterol, Calc HDL Cholesterol Lipase Urine Color Urine Appearance Urine pH Ur Specific [place] Urine Protein Urine Glucose (UA) Urine Ketones Urine Blood Urine Nitrite Ur Leukocyte Esterase COVID-19 (RICK) Negative COVID-19 Clin Com See Note Imaging Radiologist's impression: Impressions Chest X-Ray 11/15/20 01:32 IMPRESSION: Unremarkable examination. Chest CT 11/15/20 06:12 IMPRESSION: No discrete anatomic finding to provide an explanation for this patient's chest pain. No consolidative disease. No pleural or pericardial effusion. Assessment and Plan (1) Atypical chest pain: Status: Acute (2) Elevated troponin level: Status: Acute Pleasant 65-year-old female here for chest pain. She has background history of lupus. Her troponins are abnormal. Her clinical story is quite atypical and I had to really doubt this is acute coronary syndrome. I think the likely diagnosis is myopericarditis. I will check an echocardiogram to assess for any wall motion abnormalities and pericardial effusion. If she dung lynch had a wall motion abnormality then I think the heparinize her and transferred to [facility] to have a diagnostic angiogram done. On the other hand if her wall motion is normal I think this is very unlikely to be acute coronary syndrome with 4 days of persistent chest discomfort present. Also EKG has no dynamic changes. I would hold off on Lovenox for now. Will check echocardiogram and then decide whether we should start her on heparin drip or not. I think she should be started on colchicine to see if that helps with her pain. She also has some reproducible pain at the costochondral junction which should be treated symptomatically. Thank you for allowing me to participate in the care of your patient. Please feel free to contact me if you have any questions. Procedures Date of Service Date of Service: 11/15/20
[2020-11-15 11:38] VITALS: BP 107/59; PULSE 57; RESP 12; TEMP 36.5; O2SAT 95
--- NOTE | 2020-11-15 15:36 | PM.DS ---
DS: Providers Provider Date of Service: 11/15/20 Date of admission: 11/15/20 09:56 Primary care physician: Gurmeet Park MD Consults: 11/15/20 09:55 Consult to Cardiology Routine Consulting Provider: Jewel Willis Reason for consultation: NSTEMI DS: Diagnosis Discharge Diagnosis (1) Atypical chest pain: Status: Acute (2) Elevated troponin level: Status: Acute DS: Medications Discharge Medications Home Medications: Home Medications Medication Instructions Recorded Confirmed albuterol sulfate 1 - 2 vial INHALATION Q4H PRN 11/15/20 11/15/20 albuterol sulfate 90 mcg/actuation 2 puff INHALATION Q4H PRN 11/15/20 11/15/20 aerosol inhaler aspirin 81 mg tablet,delayed 1 tab PO DAILY 11/15/20 11/15/20 release cyclobenzaprine 10 mg tablet 1 tab PO BID PRN 11/15/20 11/15/20 diphenhydramine HCl 25 mg capsule 1 cap PO Q12H PRN 11/15/20 11/15/20 (Banophen) duloxetine 30 mg capsule,delayed 1 cap PO QAM 11/15/20 11/15/20 release (Cymbalta) duloxetine 60 mg capsule,delayed 1 cap PO QAM 11/15/20 11/15/20 release (Cymbalta) fluticasone propionate 50 2 spray INTRANASAL DAILY 11/15/20 11/15/20 mcg/actuation nasal spray,suspension folic acid 1 mg tablet 1 tab PO DAILY 11/15/20 11/15/20 gabapentin 400 mg capsule 1 cap PO BID 11/15/20 11/15/20 nicotine (polacrilex) 2 mg gum 1 ea PO Q2H PRN 11/15/20 11/15/20 (Nicorette) nicotine 7 mg/24 hr daily 1 patch TOPICAL DAILY 11/15/20 11/15/20 transdermal patch (Nicoderm CQ) olanzapine 7.5 mg tablet 1 tab PO BEDTIME 11/15/20 11/15/20 omeprazole 40 mg capsule,delayed 1 cap PO DAILY 11/15/20 11/15/20 release propranolol 120 mg capsule,24 1 cap PO DAILY 11/15/20 11/15/20 hr,extended release sulindac 200 mg tablet 1 tab PO BID PRN 11/15/20 11/15/20 trazodone 100 mg tablet 1 - 2 tab PO BEDTIME PRN 11/15/20 11/15/20 DS: Summary Hospital Course Hospital Course: 65 year old female with with lupus that is not active presents with chest pain that has been ongoing since , that is 4 days, ago.? She describes intermittent mid sternal chest pain of 8/10 intensity, no radiating, not necessary associated with sob, or diaphoresis, did have some episode of diarrhea and vomiting yesterday but not necessary associated with the chest pain. Work up show incremental rise in troponin I 32-->66-->93. ECG is normal. hospital course: Patient was evaluated by Dr. Willis (Cardiology) shortly after admission and did echo that show Normal left ventricular cavity size.? There is normal left ventricular wall thickness.? The left ventricular systolic function is low normal.? The visually estimated ejection fraction is between 50-55%.? There is evidence of regional wall motion abnormalities.? Diastolic function is indeterminate on the basis of available data.? E/E prime ratio is between 8 and 15 consistent with indeterminate filling pressures. ..Dr. Willis recommends IV heparin and cardiac cath at [facility], additionally she is on Aspirin, Lipitor. LDL is 105, HDL 47, Chol 182 and TG 151 Time Spent with Patient Time attestation: Total time spent providing and/or coordinating discharge services: Discharge coordination time: Greater than 30 minutes Quality: Stroke Does the patient have a stroke diagnosis?: No Physical Exam Vital Signs: Vital Signs: Last Vital Signs Temp 97.7 F 11/15/20 11:38 Pulse 57 11/15/20 11:38 Resp 12 11/15/20 11:38 BP 107/59 L 11/15/20 11:38 Pulse Ox 95 11/15/20 11:38 Body Mass Index 23.8 General: AO X 3, no acute distress Resp: CTA bilateral CVS: S1,S2,RRR GI: +BS, NT, no distention Skin: No rash Neuro: motor grossly intact Psych: appropriate affect DS: Data Data Completed and Pending Labs on day of discharge: Laboratory Results - last 24 hr 11/15/20 11/15/20 11/15/20 01:58 01:58 01:58 WBC 6.3 RBC 4.09 L Hgb 12.8 Hct 38.1 MCV 93.2 MCH 31.3 MCHC 33.6 RDW 12.5 Plt Count 221 MPV 9.8 Immature Gran % (Auto) 0.2 Neut % (Auto) 41.2 L Lymph % (Auto) 40.2 H [place] % (Auto) 13.3 H Eos % (Auto) 4.8 H Baso % (Auto) 0.3 Lymph # (Auto) 2.5 [place] # (Auto) 0.8 Eos # (Auto) 0.3 Baso # (Auto) 0.0 Abs Immat Gran (auto) 0.01 Absolute Neuts (auto) 2.6 Absolute Nucleated RBC 0.000 Nucleated RBC % (auto) 0.0 PT INR D-Dimer Sodium 135 Potassium 4.3 Chloride 102 Carbon Dioxide 26 Anion Gap 11 L BUN 20 H Creatinine 1.25 Estim Creat Clear Calc 36.0 Estimated GFR 43 Random Glucose 98 Calcium 8.6 Total Bilirubin 0.2 AST 20 ALT 13 Alkaline Phosphatase 106 Troponin I High Sens 32.1 H* Total Protein 6.5 Albumin 3.8 Triglycerides 151 Cholesterol 182 LDL Cholesterol, Calc 105 HDL Cholesterol 47 Lipase 32 Urine Color Urine Appearance Urine pH Ur Specific [place] Urine Protein Urine Glucose (UA) Urine Ketones Urine Blood Urine Nitrite Ur Leukocyte Esterase COVID-19 (RICK) COVID-[employer] 11/15/20 11/15/20 11/15/20 01:58 02:05 05:15 WBC RBC Hgb Hct MCV MCH MCHC RDW Plt Count MPV Immature Gran % (Auto) Neut % (Auto) Lymph % (Auto) [place] % (Auto) Eos % (Auto) Baso % (Auto) Lymph # (Auto) [place] # (Auto) Eos # (Auto) Baso # (Auto) Abs Immat Gran (auto) Absolute Neuts (auto) Absolute Nucleated RBC Nucleated RBC % (auto) PT 9.8 L INR 0.9 D-Dimer Sodium Potassium Chloride Carbon Dioxide Anion Gap BUN Creatinine Estim Creat Clear Calc Estimated GFR Random Glucose Calcium Total Bilirubin AST ALT Alkaline Phosphatase Troponin I High Sens 66.5 H* D Total Protein Albumin Triglycerides Cholesterol LDL Cholesterol, Calc HDL Cholesterol Lipase Urine Color DARK YELLOW Urine Appearance CLEAR Urine pH 6.0 Ur Specific [place] 1.020 Urine Protein TRACE Urine Glucose (UA) NEG Urine Ketones NEG Urine Blood NEG Urine Nitrite NEG Ur Leukocyte Esterase NEG COVID-19 (RICK) COVID-19 [employer] Com 11/15/20 11/15/20 11/15/20 08:39 08:39 09:48 WBC RBC Hgb Hct MCV MCH MCHC RDW Plt Count MPV Immature Gran % (Auto) Neut % (Auto) Lymph % (Auto) [place] % (Auto) Eos % (Auto) Baso % (Auto) Lymph # (Auto) [place] # (Auto) Eos # (Auto) Baso # (Auto) Abs Immat Gran (auto) Absolute Neuts (auto) Absolute Nucleated RBC Nucleated RBC % (auto) PT INR D-Dimer < 200 Sodium Potassium Chloride Carbon Dioxide Anion Gap BUN Creatinine Estim Creat Clear Calc Estimated GFR Random Glucose Calcium Total Bilirubin AST ALT Alkaline Phosphatase Troponin I High Sens 93.9 H* Total Protein Albumin Triglycerides Cholesterol LDL Cholesterol, Calc HDL Cholesterol Lipase Urine Color Urine Appearance Urine pH Ur Specific [place] Urine Protein Urine Glucose (UA) Urine Ketones Urine Blood Urine Nitrite Ur Leukocyte Esterase COVID-19 (RICK) Negative COVID-19 Clin Com See Note Discharge Plan Discharge Anticipated Discharge Date/Time: 11/15/20 15:22 Patient Disposition: Xfer Acute Care Hospital Discharge Diagnosis: NSTEMI Referrals: [facility] [Outside] - 1 Week Gurmeet Park MD [Primary Care Provider] - 1 Week Discharge Medications: New heparin(porcine) in 0.45% NaCl 25,000 unit/250 mL Parenteral Solution 25,000 unit continuous IV infusion .Q0M Qty: 250 RF: 0 atorvastatin [Lipitor] 40 mg tablet 40 mg PO BEDTIME Qty: 30 RF: 0 Continued cyclobenzaprine 10 mg tablet 1 tab PO BID PRN (Reason: muscle spasm) RF: 0 albuterol sulfate 2.5 mg /3 mL (0.083 %) solution for nebulization 1 - 2 vial inhalation Q4H PRN (Reason: wheezing) RF: 0 nicotine (polacrilex) [Nicorette] 2 mg gum 1 ea PO Q2H PRN (Reason: Nicotine Cravings) RF: 0 gabapentin 400 mg capsule 1 cap PO BID RF: 0 omeprazole 40 mg capsule,delayed release(DR/EC) 1 cap PO DAILY RF: 0 olanzapine 7.5 mg tablet 1 tab PO BEDTIME RF: 0 aspirin 81 mg tablet,delayed release (DR/EC) 1 tab PO DAILY RF: 0 trazodone 100 mg tablet 1 - 2 tab PO BEDTIME PRN (Reason: insomnia) RF: 0 diphenhydramine HCl [Banophen] 25 mg capsule 1 cap PO Q12H PRN (Reason: DYSTONIA/ALLERGIES) RF: 0 folic acid 1 mg tablet 1 tab PO DAILY RF: 0 propranolol 120 mg capsule,extended release 24 hr 1 cap PO DAILY RF: 0 albuterol sulfate 90 mcg/actuation HFA aerosol inhaler 2 puff inhalation Q4H PRN (Reason: wheezing) RF: 0 fluticasone propionate 50 mcg/actuation spray,suspension 2 spray intranasal DAILY RF: 0 sulindac 200 mg tablet 1 tab PO BID PRN (Reason: pain) RF: 0 nicotine [Nicoderm CQ] 7 mg/24 hr patch 24 hour 1 patch topical DAILY RF: 0 duloxetine [Cymbalta] 30 mg capsule,delayed release(DR/EC) 1 cap PO QAM RF: 0 duloxetine [Cymbalta] 60 mg capsule,delayed release(DR/EC) 1 cap PO QAM RF: 0 Discharge Orders: Discharge Order (Routine); Ordered 11/15/20 Ordered By: Hernan Buchanan Diet: advance to usual diet Activity on Discharge: As tolerated Stand Alone Forms: Patient Portal Discharge page Care Plan Goals: Coronary artery disease Health Concerns: NSTEMI Plan of Treatment: IV heparin, asprin, Beta gonzalez and transfer to [facility] for cardiac cath Assessment: As above
[2020-11-15 16:52] LABS: PTT Heparin Drip 33.5 SEC (53-77.9)
[2020-11-15] MEDS: Heparin Sodium,Porcine/1/2NS 25,000 UNIT/250 ML IV.SOLN 8.26 UNIT IVCONT (17:09)
[2020-11-15] MEDS: Heparin Sodium,Porcine 5,000 UNIT/ML VIAL 4700 UNIT IVPUSH (17:10)
== END 2020-11-15 18:51 | disposition short-term general hospital (02) ==
LOC: HO.ED 10:04 → HO.EDOVER 11:35 → HO.IMC 15:36 → HO.ED 18:43
PROVIDERS: Internal Medicine; Student in an Organized Health Care Education/Training Program; Emergency Provider Emergency Medicine; PCP Internal Medicine
DX: R07.9 Chest pain, unspecified (principal); R77.8 Other specified abnormalities of plasma proteins; M79.602 Pain in left arm; Z20.822 Contact with and (suspected) exposure to COVID-19; Z79.899 Other long term (current) drug therapy
CPT/HCPCS: 36415; 71046; 71260; 80053; 80061; 81003; 83690; 84484; 85025; 85379; 85610; 85730; 87635; 93005; 93306; 96361; 96365; 96372; 96375; 99285; J2270; Q0163; Q9957; Q9967

== ENCOUNTER → 2020-11-21 12:26 | Outpatient (BNVA) | payer OTHER, SELFPAY | PROVIDERS: Referring Provider Internal Medicine; Visit Provider Nurse Practitioner Family | DX: I21.4 Non-ST elevation (NSTEMI) myocardial infarction (principal); I25.10 Atherosclerotic heart disease of native coronary artery without angina pectoris; Z95.5 Presence of coronary angioplasty implant and graft; Z98.890 Other specified postprocedural states | CPT/HCPCS: 99212 ==

== ENCOUNTER → 2021-03-27 12:26 | Outpatient (BNVA) | payer OTHER, SELFPAY | PROVIDERS: PCP Internal Medicine; Referring Provider Internal Medicine; Visit Provider Internal Medicine Cardiovascular Disease | DX: I20.0 Unstable angina (principal); Z95.5 Presence of coronary angioplasty implant and graft | CPT/HCPCS: 93005; 99212 ==

== ENCOUNTER → 2021-07-06 12:30 | Outpatient (BNVA) | payer OTHER, SELFPAY | PROVIDERS: PCP Internal Medicine; Referring Provider Internal Medicine; Visit Provider Internal Medicine Cardiovascular Disease | DX: Z13.89 Encounter for screening for other disorder (principal) ==

== ENCOUNTER → 2021-07-10 09:57 | Outpatient (BNVA) | payer OTHER, SELFPAY | PROVIDERS: PCP Internal Medicine; Referring Provider Internal Medicine; Visit Provider Internal Medicine Cardiovascular Disease | DX: Z13.89 Encounter for screening for other disorder (principal) ==

== ENCOUNTER → 2021-08-22 13:33 | Outpatient (BNVA) | payer OTHER, SELFPAY | PROVIDERS: PCP Internal Medicine; Referring Provider Internal Medicine; Visit Provider Nurse Practitioner Family | DX: I25.110 Atherosclerotic heart disease of native coronary artery with unstable angina pectoris (principal); Z98.890 Other specified postprocedural states; Z95.5 Presence of coronary angioplasty implant and graft | CPT/HCPCS: 99212 ==

== ENCOUNTER 2021-11-15 12:33 | Outpatient (RCR) | payer OTHER, SELFPAY ==
[2021-11-15 06:43] VITALS: BP 110/70; BP 138/66; BMI 22.6
--- NOTE | 2021-11-15 14:49 | MHC.CR.ITI ---
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 [Functional Assessment] -6 Min Walk (distance in ft) 800 -METS Achieved 1 -Resting HR 72 -Resting BP 110/70 -Resting SpO2 97 -Exercise HR 95 -Exercise BP 138/66 -Exercise SpO2 100 -RPE 19 -Dyspnea Yes -ECG Summary SR -Comments sob during 6 min walk- immediately stopped, resting [Pre Rehab] -Pre Rehab Home Exercise No -Comments per pt does not exercise at home but hopes to once she starts here at rehab -Risk Stratification: Low Risk Uncomplicated Participants [place]; CABG; angioplasty; atherectomy -Fall Risk No -Assistive Devices None -Comments steady gait [Exercise Plan] [Intervention] -Exercise Prescription NuStep, Recumbent Bike, UBE -Duration Intensity 36 Sessions -Frequency 2-3x/week -Angina with Exercise No [Exercise Education] -Exercise Education Exercise orientation, Exercise safety ,RPE,Warmup/ cooldown -Date Completed 11/15/21 -Initials agnes -Education Summary orientation to unit and machines [Exercise Goals] -Exercise Most Days of the Week Yes -Exercise 30-45 mins/day Yes -Target HR Range +20 - +30 beats above resting -Target RPE range 11-13 -Increase METS next 30 days 0.5-1.0 METS Every two weeks -METs goal by Discharge 4 METS -Comments pt does not exercise at home but hopes to once she starts here [Nutrition] [Hyperlipidemia] -Hyperlipidemia Yes -Are lab results available Yes -Lipid Draw Date 11/15/20 -Total Cholesterol 182 -LDL 105 -HDL 47 -Tryglycerides 151 [Diabetes] -Diabetes No -Are lab results available No -Monitors Glucose No [Weight Management] -Height 5 ft 2 in -Weight 56.2 kg -BMI 22.6 -Recommended Diet dash -Comments dash info given in macedonian [Drug/Alchohol Use] -Drug/Alcohol Use Yes -Comment socially [Nutritional Screen (Rate Your Plate)] -Score 55 -Interpretation of Score there are some options that she could make to eat more healthy -Comments pt has goals to eat more healthy eat more fish, vegetables, fruit, add more whole grains and eat healthier snacks. 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 -Patient Self-Reports Depression Yes -Family Support Lives with spouse/others -Comments very supportive [Psycho/Social Plan] [Intervention] -Referral(s) Patient refused consults [Psycho/Social Education] -Psycho/Social Education Advanced directives, Coping techniques, Depression and CAD,Positive support system, Relaxation Techniques, Reviewed PHQ9 Score w/pt, Sexuality and CAD,Signs and symptoms of CAD ,Stress management -Date Completed 11/15/21 -Initials agnes -Education Summary very supportive [Psycho/Social Goals] -Goals Improve depression screen score, Improve depressive symptoms,Manage /reduce stress -Comments music therapy ( pt. listens to relaxation tapes) [Other Core Comp] [Risk Factors] -Risk Factors Dyslipidemia, Family History of CAD, Hypertension, Physical Inactivity, Tobacco Use -Comments: pt trying to quit smoking- smokes 2 cigarettes per day/taking nicorette gum [Hypertension] -Hypertention Yes -Resting BP: 110/70 [Tobacco Use] -Patient Tobacco Use Status Current everyday Tobacco user -Tobacco use type Cigarette -Smoking packs per day 0.25 -Patient Interested in Nicotine No: on nicotine Replacement gum now -Comments working with psychiatrist to stop smoking [Heart Failure] -Heart Failure No -Dyspnea at Rest Yes: asthma really bad during allergy season -Dyspnea with Exercise Yes -Last Hospitalization 04/04 -Comments cardiac stent x2 [Other Core Comp Plan] [Intervention] -Referral(s) Recognizing Stressors,Self Monitoring BP, Patient Refused Consults [Other Core Comp Education] -Other Core Comp Education Medication compliance,RPD Scale/SOB management, Understanding hypertension -Date Completed 11/15/21 -Initials agnes -Education Summary pt takes meds as prescribed [Other Core Comp Goals] -Goals Improve dyspnea ,Manage risk factors, Medication compliance, Resting BP < 130/80,Tobacco cessation -Comments trying to quit smoking [Medication Plan] [Intervention] -Medications albuterol 2 puffs q4h prn asa 81 mg po daily atorvastatin 80 mg qd cholecalciferol 50 mcg po daily cyclobenazapine 10mg po qd diphenhydramine 25 mg q 12 hrs prn cymbalta 60 mg hs po/30 mg po am fluticasone 50 mcg 2 sprays daily folic acid one mg po propranolol 60 mg am 60 mg pm po nicorette 2mg po q 2hrs olanzapine 5mg po dauly ticagrelor 90 mg po bid trazadone po hs 100mg omeprazole 40 mg po qd -Compliance Patient reports compliance w/ prescribed meds [Medication Education] -Education Importance of medication compliance, Medication purpose, Medication schedule, Medication side effects -Date Completed 11/15/21 -Initials agnes -Education Summary pts med list gone over with pt. [Medication Goals] -Goals Adherence to medication compliance -Comments states understands purpose of meds [Treatment Times] -Rehab Services with ECG Monitor -Time 1300 -End Time 1430 -Visit Duration 90
[2021-12-12 09:27] VITALS: BP 114/62; BMI 21.8
--- NOTE | 2021-12-12 09:53 | MHC.CR.ITR ---
[address] [phone] F: [phone] Please see additional notes from [facility] Cardiac Rehab Reassessment/ITP Cardiac Rehab Reassessment/ITP Start: 11/14/21 10:05 Freq: Status: Active Protocol: Activity Type Activity Date Activity User E-sign Co-sign Detail Recorded Client Recorded Date Recorded By Document 12/12/21 09:27 ROSENDO [id number] 12/12/21 09:53 ROSENDO 12/12/21 09:27 Cardiac Rehab Reassessment/ITP [Exercise] -Heating Technician Required Yes -Preferred Language Lao -Progress Note Type 30-Day Note -Total Sessions Attended 6 -Comments has increased intensity and duration of exercise with supervision and guidance. has managed to communicate with staff without hop separator using broken Uzbek with hop separator available if needed. Has not attended CR since 12/01 due to ongoing illness. This week called to state she was quarantining due to positive Covid test [Functional Assessment] -ECG Summary SR -Home-Based Rehab Pt approved for home-based exercise -Comments States has not exercised previously but is hopeful that she will be motivated to start -Fall Risk No [Exercise Plan] [Intervention] -Exercise Prescription NuStep, Recumbent Bike, UBE -Duration Intensity 36 Sessions -Exercise Minutes/Day 30 -Exercise Days/Week 5 -Angina with Exercise No -Peak METs 3 [Home Exercise] -Mode walking -Frequency non rehab days -Intensity moderate -Comments encouraged to walk 20-10 minutes on non- rehab days weather permitting. Reminded to limit activity during weather extremes. ( temps >85 & < 35) [Exercise Education] -Exercise Education Exercise orientation, Exercise safety ,RPE,Warmup/ cooldown -Date Completed 11/15/21 -Initials agnes -Education Summary orientation to unit and machines [Exercise Goals] -Exercise Most Days of the Week Yes -Exercise 30-45 mins/day Yes -Target HR Range +20 - +30 beats above resting -Target RPE range 11-13 -Increase METS next 30 days 0.5-1.0 METS Every two weeks -METs goal by Discharge 4 METS -Comments pt does not exercise at home but hopes to once she starts here [Nutrition] [Hyperlipidemia] -Are lab results available Yes -Hyperlipidemia Yes -Comments 11/15/20 cholesterol- 182 triglycerides- 151 LDL- 105 HDL- 44 [Diabetes] -Diabetes No -Comments 11/15/21 random BG- 88 [Weight Management] -Weight 119.46 kg -BMI 21.8 -Comments dash diet info given in tajik [Drug/Alchohol Use] -Drug/Alcohol Use Yes -Comment socially [Nutrition Plan] [Intervention] -Attended Nutrition Brochures [Nutrition Education] -Nutrition Education Hydration, Nutrition, Reading food labels -Date Completed 11/15/21 -Initials agnes -Education Summary pt states hypoglycemic, knows signs of it, educated re : importance of eating/ hydrating before she comes to CR and before exercising in general. [Nutrition Goals] -Goals BMI < 25, Fasting BG 80- 120 mg/dL,HDL > 40,LDL < 70, Total CHOL < 200 -Comments happy with weight [Psycho/Social] -Occupation Retired -PHQ9 Score 22 -Interpretation of Score high risk depression -Plan of Action/Follow-up to fax to primary care- pt taking meds and also has a psychiatrist. -Patient Self-Reports Depression Yes [Psycho/Social Plan] [Intervention] -Attended Patient refused consults [Psycho/Social Education] -Psycho/Social Education Advanced directives, Coping techniques, Depression and CAD,Positive support system, Relaxation Techniques, Reviewed PHQ9 Score w/pt, Sexuality and CAD,Signs and symptoms of CAD ,Stress management -Date Completed 11/15/21 -Initials agnes -Education Summary very supportive [Psycho/Social Goals] -Goals Improve depression screen score, Improve depressive symptoms,Manage /reduce stress -Comments music therapy ( pt. listens to relaxation tapes) [Other Core Comp] [Hypertension] -Hypertention Yes -Resting BP: 114/62 -Medication Changes No [Tobacco Use] -Change in Use No -Comments working with psychiatrist to stop smoking [Heart Failure] -Heart Failure No -Dyspnea at Rest Yes: asthma really bad during allergy season -Dyspnea with Exercise Yes -Comments cardiac stent x2 [Other Core Comp Plan] [Intervention] -Attended Recognizing Stressors,Self Monitoring BP, Patient Refused Consults [Other Core Comp Education] -Other Core Comp Education Medication compliance,RPD Scale/SOB management, Understanding hypertension -Date Completed 11/15/21 -Initials agnes -Education Summary pt takes meds as prescribed [Other Core Comp Goals] -Goals Improve dyspnea ,Manage risk factors, Medication compliance, Resting BP < 130/80,Tobacco cessation -Comments trying to quit smoking [Medication Plan] [Intervention] -Medications albuterol 2 puffs q4h prn asa 81 mg po daily atorvastatin 80 mg qd cholecalciferol 50 mcg po daily cyclobenazapine 10mg po qd diphenhydramine 25 mg q 12 hrs prn cymbalta 60 mg hs po/30 mg po am fluticasone 50 mcg 2 sprays daily folic acid one mg po propranolol 60 mg am 60 mg pm po nicorette 2mg po q 2hrs olanzapine 5mg po dauly ticagrelor 90 mg po bid trazadone po hs 100mg omeprazole 40 mg po qd -Compliance Patient reports compliance w/ prescribed meds [Medication Education] -Education Importance of medication compliance, Medication purpose, Medication schedule, Medication side effects -Date Completed 11/15/21 -Initials agnes -Education Summary pts med list gone over with pt. [Medication Goals] -Goals Adherence to medication compliance -Comments states understands purpose of meds
[2022-01-03 07:25] VITALS: BP 114/62; BMI 21.8
--- NOTE | 2022-01-03 07:27 | MHC.CR.ITR ---
[address] [phone] F: [phone] Please see additional notes from [facility] Cardiac Rehab Reassessment/ITP Cardiac Rehab Reassessment/ITP Start: 11/14/21 10:05 Freq: Status: Active Protocol: Activity Type Activity Date Activity User E-sign Co-sign Detail Recorded Client Recorded Date Recorded By Document 01/03/22 07:25 ROSENDO [id number] 01/03/22 07:26 ROSENDO 01/03/22 07:25 Cardiac Rehab Reassessment/ITP [Exercise] -Field Contact Technician Required Yes -Preferred Language German -Progress Note Type 30-Day Note -Total Sessions Attended 6 -Comments has increased intensity and duration of exercise with supervision and guidance. has managed to communicate with staff without hod carrier using broken Kyrgyz with hod carrier available if needed. Has not attended CR since 12/01 due to ongoing illness. [Functional Assessment] -ECG Summary SR -Home-Based Rehab Pt approved for home-based exercise -Comments States has not exercised previously but is hopeful that she will be motivated to start -Fall Risk No [Exercise Plan] [Intervention] -Exercise Prescription NuStep, Recumbent Bike, UBE -Duration Intensity 36 Sessions -Exercise Minutes/Day 30 -Exercise Days/Week 5 -Angina with Exercise No -Peak METs 3 [Home Exercise] -Mode walking -Frequency non rehab days -Intensity moderate -Comments encouraged to walk 20-10 minutes on non- rehab days weather permitting. Reminded to limit activity during weather extremes. ( temps >85 & < 35) [Exercise Education] -Exercise Education Exercise orientation, Exercise safety ,RPE,Warmup/ cooldown -Date Completed 11/15/21 -Initials agnes -Education Summary orientation to unit and machines [Exercise Goals] -Exercise Most Days of the Week Yes -Exercise 30-45 mins/day Yes -Target HR Range +20 - +30 beats above resting -Target RPE range 11-13 -Increase METS next 30 days 0.5-1.0 METS Every two weeks -METs goal by Discharge 4 METS -Comments pt does not exercise at home but hopes to once she starts here [Nutrition] [Hyperlipidemia] -Are lab results available Yes -Hyperlipidemia Yes -Comments 11/15/20 cholesterol- 182 triglycerides- 151 LDL- 105 HDL- 44 [Diabetes] -Diabetes No -Comments 11/15/21 random BG- 88 [Weight Management] -Weight 119.46 kg -BMI 21.8 -Comments dash diet info given in bangladeshi [Drug/Alchohol Use] -Drug/Alcohol Use Yes -Comment socially [Nutrition Plan] [Intervention] -Attended Nutrition Brochures [Nutrition Education] -Nutrition Education Hydration, Nutrition, Reading food labels -Date Completed 11/15/21 -Initials agnes -Education Summary pt states hypoglycemic, knows signs of it, educated re : importance of eating/ hydrating before she comes to CR and before exercising in general. [Nutrition Goals] -Goals BMI < 25, Fasting BG 80- 120 mg/dL,HDL > 40,LDL < 70, Total CHOL < 200 -Comments happy with weight [Psycho/Social] -Occupation Retired -PHQ9 Score 22 -Interpretation of Score high risk depression -Plan of Action/Follow-up to fax to primary care- pt taking meds and also has a psychiatrist. -Patient Self-Reports Depression Yes [Psycho/Social Plan] [Intervention] -Attended Patient refused consults [Psycho/Social Education] -Psycho/Social Education Advanced directives, Coping techniques, Depression and CAD,Positive support system, Relaxation Techniques, Reviewed PHQ9 Score w/pt, Sexuality and CAD,Signs and symptoms of CAD ,Stress management -Date Completed 11/15/21 -Initials agnes -Education Summary very supportive [Psycho/Social Goals] -Goals Improve depression screen score, Improve depressive symptoms,Manage /reduce stress -Comments music therapy ( pt. listens to relaxation tapes) [Other Core Comp] [Hypertension] -Hypertention Yes -Resting BP: 114/62 -Medication Changes No [Tobacco Use] -Change in Use No -Comments working with psychiatrist to stop smoking [Heart Failure] -Heart Failure No -Dyspnea at Rest Yes: asthma really bad during allergy season -Dyspnea with Exercise Yes -Comments cardiac stent x2 [Other Core Comp Plan] [Intervention] -Attended Recognizing Stressors,Self Monitoring BP, Patient Refused Consults [Other Core Comp Education] -Other Core Comp Education Medication compliance,RPD Scale/SOB management, Understanding hypertension -Date Completed 11/15/21 -Initials agnes -Education Summary pt takes meds as prescribed [Other Core Comp Goals] -Goals Improve dyspnea ,Manage risk factors, Medication compliance, Resting BP < 130/80,Tobacco cessation -Comments trying to quit smoking [Medication Plan] [Intervention] -Medications albuterol 2 puffs q4h prn asa 81 mg po daily atorvastatin 80 mg qd cholecalciferol 50 mcg po daily cyclobenazapine 10mg po qd diphenhydramine 25 mg q 12 hrs prn cymbalta 60 mg hs po/30 mg po am fluticasone 50 mcg 2 sprays daily folic acid one mg po propranolol 60 mg am 60 mg pm po nicorette 2mg po q 2hrs olanzapine 5mg po dauly ticagrelor 90 mg po bid trazadone po hs 100mg omeprazole 40 mg po qd -Compliance Patient reports compliance w/ prescribed meds [Medication Education] -Education Importance of medication compliance, Medication purpose, Medication schedule, Medication side effects -Date Completed 11/15/21 -Initials agnes -Education Summary pts med list gone over with pt. [Medication Goals] -Goals Adherence to medication compliance -Comments states understands purpose of meds
[2022-02-06 06:56] VITALS: BP 114/62; BMI 21.8
--- NOTE | 2022-02-06 06:57 | MHC.CR.ITR ---
[address] [phone] F: [phone] Please see additional notes from [facility] Reassessment/ITP Cardiac Rehab Reassessment/ITP Start: 11/14/21 10:05 Freq: Status: Active Protocol: Activity Type Activity Date Activity User E-sign Co-sign Detail Recorded Client Recorded Date Recorded By Document 02/06/22 06:56 ROSENDO [id number] 02/06/22 06:56 ROSENDO 02/06/22 06:56 Cardiac Rehab Reassessment/ITP [Exercise] -Emergency Department Nurse Required Yes -Preferred Language Greek -Progress Note Type 60-Day Note -Total Sessions Attended 6 -Comments has increased intensity and duration of exercise with supervision and guidance. has managed to communicate with staff without floral specialist using broken Urdu with floral specialist available if needed. Has not attended CR since 12/01. [Functional Assessment] -ECG Summary SR -Home-Based Rehab Pt approved for home-based exercise -Comments States has not exercised previously but is hopeful that she will be motivated to start -Fall Risk No [Exercise Plan] [Intervention] -Exercise Prescription NuStep, Recumbent Bike, UBE -Duration Intensity 36 Sessions -Exercise Minutes/Day 30 -Exercise Days/Week 5 -Angina with Exercise No -Peak METs 3 [Home Exercise] -Mode walking -Frequency non rehab days -Intensity moderate -Comments encouraged to walk 20-10 minutes on non- rehab days weather permitting. Reminded to limit activity during weather extremes. ( temps >85 & < 35) [Exercise Education] -Exercise Education Exercise orientation, Exercise safety ,RPE,Warmup/ cooldown -Date Completed 11/15/21 -Initials agnes -Education Summary orientation to unit and machines [Exercise Goals] -Exercise Most Days of the Week Yes -Exercise 30-45 mins/day Yes -Target HR Range +20 - +30 beats above resting -Target RPE range 11-13 -Increase METS next 30 days 0.5-1.0 METS Every two weeks -METs goal by Discharge 4 METS -Comments pt does not exercise at home but hopes to once she starts here [Nutrition] [Hyperlipidemia] -Are lab results available Yes -Hyperlipidemia Yes -Comments 11/15/20 cholesterol- 182 triglycerides- 151 LDL- 105 HDL- 44 [Diabetes] -Diabetes No -Comments 11/15/21 random BG- 88 [Weight Management] -Weight 119.46 kg -BMI 21.8 -Comments dash diet info given in occitan [Drug/Alchohol Use] -Drug/Alcohol Use Yes -Comment socially [Nutrition Plan] [Intervention] -Attended Nutrition Brochures [Nutrition Education] -Nutrition Education Hydration, Nutrition, Reading food labels -Date Completed 11/15/21 -Initials agnes -Education Summary pt states hypoglycemic, knows signs of it, educated re : importance of eating/ hydrating before she comes to CR and before exercising in general. [Nutrition Goals] -Goals BMI < 25, Fasting BG 80- 120 mg/dL,HDL > 40,LDL < 70, Total CHOL < 200 -Comments happy with weight [Psycho/Social] -Occupation Retired -PHQ9 Score 22 -Interpretation of Score high risk depression -Plan of Action/Follow-up to fax to primary care- pt taking meds and also has a psychiatrist. -Patient Self-Reports Depression Yes [Psycho/Social Plan] [Intervention] -Attended Patient refused consults [Psycho/Social Education] -Psycho/Social Education Advanced directives, Coping techniques, Depression and CAD,Positive support system, Relaxation Techniques, Reviewed PHQ9 Score w/pt, Sexuality and CAD,Signs and symptoms of CAD ,Stress management -Date Completed 11/15/21 -Initials agnes -Education Summary very supportive [Psycho/Social Goals] -Goals Improve depression screen score, Improve depressive symptoms,Manage /reduce stress -Comments music therapy ( pt. listens to relaxation tapes) [Other Core Comp] [Hypertension] -Hypertention Yes -Resting BP: 114/62 -Medication Changes No [Tobacco Use] -Change in Use No -Comments working with psychiatrist to stop smoking [Heart Failure] -Heart Failure No -Dyspnea at Rest Yes: asthma really bad during allergy season -Dyspnea with Exercise Yes -Comments cardiac stent x2 [Other Core Comp Plan] [Intervention] -Attended Recognizing Stressors,Self Monitoring BP, Patient Refused Consults [Other Core Comp Education] -Other Core Comp Education Medication compliance,RPD Scale/SOB management, Understanding hypertension -Date Completed 11/15/21 -Initials agnes -Education Summary pt takes meds as prescribed [Other Core Comp Goals] -Goals Improve dyspnea ,Manage risk factors, Medication compliance, Resting BP < 130/80,Tobacco cessation -Comments trying to quit smoking [Medication Plan] [Intervention] -Medications albuterol 2 puffs q4h prn asa 81 mg po daily atorvastatin 80 mg qd cholecalciferol 50 mcg po daily cyclobenazapine 10mg po qd diphenhydramine 25 mg q 12 hrs prn cymbalta 60 mg hs po/30 mg po am fluticasone 50 mcg 2 sprays daily folic acid one mg po propranolol 60 mg am 60 mg pm po nicorette 2mg po q 2hrs olanzapine 5mg po dauly ticagrelor 90 mg po bid trazadone po hs 100mg omeprazole 40 mg po qd -Compliance Patient reports compliance w/ prescribed meds [Medication Education] -Education Importance of medication compliance, Medication purpose, Medication schedule, Medication side effects -Date Completed 11/15/21 -Initials agnes -Education Summary pts med list gone over with pt. [Medication Goals] -Goals Adherence to medication compliance -Comments states understands purpose of meds
[2022-03-06 08:44] VITALS: BP 114/62; BMI 21.8
--- NOTE | 2022-03-06 08:45 | MHC.CR.ITR ---
[address] [phone] F: [phone] Please see additional notes from [facility] Reassessment/ITP Cardiac Rehab Reassessment/ITP Start: 11/14/21 10:05 Freq: Status: Active Protocol: Activity Type Activity Date Activity User E-sign Co-sign Detail Recorded Client Recorded Date Recorded By Document 03/06/22 08:44 ROSENDO [id number] 03/06/22 08:44 ROSENDO 03/06/22 08:44 Cardiac Rehab Reassessment/ITP [Exercise] -Relief Manager Required Yes -Preferred Language Armenian -Progress Note Type 90-Day Note -Total Sessions Attended 6 -Comments has increased intensity and duration of exercise with supervision and guidance. has managed to communicate with staff without lang interpreter using broken Occitan with lang interpreter available if needed. Has not attended CR since 12/01. [Functional Assessment] -ECG Summary SR -Home-Based Rehab Pt approved for home-based exercise -Comments States has not exercised previously but is hopeful that she will be motivated to start -Fall Risk No [Exercise Plan] [Intervention] -Exercise Prescription NuStep, Recumbent Bike, UBE -Duration Intensity 36 Sessions -Exercise Minutes/Day 30 -Exercise Days/Week 5 -Angina with Exercise No -Peak METs 3 [Home Exercise] -Mode walking -Frequency non rehab days -Intensity moderate -Comments encouraged to walk 20-10 minutes on non- rehab days weather permitting. Reminded to limit activity during weather extremes. ( temps >85 & < 35) [Exercise Education] -Exercise Education Exercise orientation, Exercise safety ,RPE,Warmup/ cooldown -Date Completed 11/15/21 -Initials agnes -Education Summary orientation to unit and machines [Exercise Goals] -Exercise Most Days of the Week Yes -Exercise 30-45 mins/day Yes -Target HR Range +20 - +30 beats above resting -Target RPE range 11-13 -Increase METS next 30 days 0.5-1.0 METS Every two weeks -METs goal by Discharge 4 METS -Comments pt does not exercise at home but hopes to once she starts here [Nutrition] [Hyperlipidemia] -Are lab results available Yes -Hyperlipidemia Yes -Comments 11/15/20 cholesterol- 182 triglycerides- 151 LDL- 105 HDL- 44 [Diabetes] -Diabetes No -Comments 11/15/21 random BG- 88 [Weight Management] -Weight 119.46 kg -BMI 21.8 -Comments dash diet info given in greek [Drug/Alchohol Use] -Drug/Alcohol Use Yes -Comment socially [Nutrition Plan] [Intervention] -Attended Nutrition Brochures [Nutrition Education] -Nutrition Education Hydration, Nutrition, Reading food labels -Date Completed 11/15/21 -Initials agnes -Education Summary pt states hypoglycemic, knows signs of it, educated re : importance of eating/ hydrating before she comes to CR and before exercising in general. [Nutrition Goals] -Goals BMI < 25, Fasting BG 80- 120 mg/dL,HDL > 40,LDL < 70, Total CHOL < 200 -Comments happy with weight [Psycho/Social] -Occupation Retired -PHQ9 Score 22 -Interpretation of Score high risk depression -Plan of Action/Follow-up to fax to primary care- pt taking meds and also has a psychiatrist. -Patient Self-Reports Depression Yes [Psycho/Social Plan] [Intervention] -Attended Patient refused consults [Psycho/Social Education] -Psycho/Social Education Advanced directives, Coping techniques, Depression and CAD,Positive support system, Relaxation Techniques, Reviewed PHQ9 Score w/pt, Sexuality and CAD,Signs and symptoms of CAD ,Stress management -Date Completed 11/15/21 -Initials agnes -Education Summary very supportive [Psycho/Social Goals] -Goals Improve depression screen score, Improve depressive symptoms,Manage /reduce stress -Comments music therapy ( pt. listens to relaxation tapes) [Other Core Comp] [Hypertension] -Hypertention Yes -Resting BP: 114/62 -Medication Changes No [Tobacco Use] -Change in Use No -Comments working with psychiatrist to stop smoking [Heart Failure] -Heart Failure No -Dyspnea at Rest Yes: asthma really bad during allergy season -Dyspnea with Exercise Yes -Comments cardiac stent x2 [Other Core Comp Plan] [Intervention] -Attended Recognizing Stressors,Self Monitoring BP, Patient Refused Consults [Other Core Comp Education] -Other Core Comp Education Medication compliance,RPD Scale/SOB management, Understanding hypertension -Date Completed 11/15/21 -Initials agnes -Education Summary pt takes meds as prescribed [Other Core Comp Goals] -Goals Improve dyspnea ,Manage risk factors, Medication compliance, Resting BP < 130/80,Tobacco cessation -Comments trying to quit smoking [Medication Plan] [Intervention] -Medications albuterol 2 puffs q4h prn asa 81 mg po daily atorvastatin 80 mg qd cholecalciferol 50 mcg po daily cyclobenazapine 10mg po qd diphenhydramine 25 mg q 12 hrs prn cymbalta 60 mg hs po/30 mg po am fluticasone 50 mcg 2 sprays daily folic acid one mg po propranolol 60 mg am 60 mg pm po nicorette 2mg po q 2hrs olanzapine 5mg po dauly ticagrelor 90 mg po bid trazadone po hs 100mg omeprazole 40 mg po qd -Compliance Patient reports compliance w/ prescribed meds [Medication Education] -Education Importance of medication compliance, Medication purpose, Medication schedule, Medication side effects -Date Completed 11/15/21 -Initials agnes -Education Summary pts med list gone over with pt. [Medication Goals] -Goals Adherence to medication compliance -Comments states understands purpose of meds
[2022-03-27 10:46] VITALS: BP 114/62; BMI 21.8
--- NOTE | 2022-03-27 10:47 | MHC.CR.ITD ---
[address] [phone] F: [phone] Please see additional notes from [facility] Card[facility] Rehab Discharge/ITP Cardiac Rehab Discharge/ITP Start: 11/14/21 10:05 Freq: Status: Active Protocol: Activity Type Activity Date Activity User E-sign Co-sign Detail Recorded Client Recorded Date Recorded By Document 03/27/22 10:46 ROSENDO [id number] 03/27/22 10:47 ROSENDO 03/27/22 10:46 Cardiac Rehab Discharge/ITP [Exercise] -Testing Manager Required Yes -Preferred Language Yoruba -Total Sessions Attended 6 -Comments Has not attended CR since 12/01. has not completed discharge 6 minute walk, rate my plate or PHQ9 assessments [Functional Assessment] -ECG Summary SR -Fall Risk No [Exercise Plan] [Intervention] -Exercise Prescription NuStep, Recumbent Bike, UBE -Duration Intensity 36 Sessions -Exercise Minutes/Day 30 -Exercise Days/Week 5 -Angina with Exercise No -Peak METs 3 [Home Exercise] -Mode walking -Frequency non rehab days -Intensity moderate -Comments encouraged to walk 20-10 minutes on non- rehab days weather permitting. Reminded to limit activity during weather extremes. ( temps >85 & < 35) [Exercise Education] -Exercise Education Exercise orientation, Exercise safety ,RPE,Warmup/ cooldown -Date Completed 11/15/21 -Initials agnes -Education Summary orientation to unit and machines [Exercise Goals] -Exercise Most Days of the Week Yes -Exercise 30-45 mins/day Yes -Target HR Range +20 - +30 beats above resting -Target RPE range 11-13 -Increase METS next 30 days 0.5-1.0 METS Every two weeks -METs goal by Discharge 4 METS -Comments pt does not exercise at home but hopes to once she starts here [Nutrition] [Hyperlipidemia] -Are lab results available Yes -Hyperlipidemia Yes -Lipid Draw Date 11/15/20 -Total Cholesterol 182 -LDL 105 -HDL 47 -Tryglycerides 151 -Comments 11/15/20 cholesterol- 182 triglycerides- 151 LDL- 105 HDL- 44 [Diabetes] -Diabetes No -Comments 11/15/21 random BG- 88 [Weight Management] -Weight 119.46 kg -BMI 21.8 -Comments dash diet info given in korean [Drug/Alchohol Use] -Drug/Alcohol Use Yes -Comment socially [Nutrition Plan] [Intervention] -Attended Nutrition Brochures [Nutrition Education] -Nutrition Education Hydration, Nutrition, Reading food labels -Date Completed 11/15/21 -Initials agnes -Education Summary pt states hypoglycemic, knows signs of it, educated re : importance of eating/ hydrating before she comes to CR and before exercising in general. [Nutrition Goals] -Goals BMI < 25, Fasting BG 80- 120 mg/dL,HDL > 40,LDL < 70, Total CHOL < 200 -Comments happy with weight [Psycho/Social] -Occupation Retired -PHQ9 Score 22 -Interpretation of Score high risk depression -Plan of Action/Follow-up to fax to primary care- pt taking meds and also has a psychiatrist. -Patient Self-Reports Depression Yes [Psycho/Social Plan] [Intervention] -Attended Patient refused consults [Psycho/Social Education] -Psycho/Social Education Advanced directives, Coping techniques, Depression and CAD,Positive support system, Relaxation Techniques, Reviewed PHQ9 Score w/pt, Sexuality and CAD,Signs and symptoms of CAD ,Stress management -Date Completed 11/15/21 -Initials agnes -Education Summary very supportive [Psycho/Social Goals] -Goals Improve depression screen score, Improve depressive symptoms,Manage /reduce stress -Comments music therapy ( pt. listens to relaxation tapes) [Other Core Comp] [Hypertension] -Hypertention Yes -Resting BP: 114/62 -Medication Changes No [Tobacco Use] -Change in Use No -Comments working with psychiatrist to stop smoking [Heart Failure] -Dyspnea at Rest Yes: asthma really bad during allergy season -Dyspnea with Exercise Yes -Comments cardiac stent x2 [Other Core Comp Plan] [Intervention] -Attended Recognizing Stressors,Self Monitoring BP, Patient Refused Consults [Other Core Comp Education] -Other Core Comp Education Medication compliance,RPD Scale/SOB management, Understanding hypertension -Date Completed 11/15/21 -Initials agnes -Education Summary pt takes meds as prescribed [Other Core Comp Goals] -Goals Improve dyspnea ,Manage risk factors, Medication compliance, Resting BP < 130/80,Tobacco cessation -Comments trying to quit smoking [Medication Plan] [Intervention] -Medications albuterol 2 puffs q4h prn asa 81 mg po daily atorvastatin 80 mg qd cholecalciferol 50 mcg po daily cyclobenazapine 10mg po qd diphenhydramine 25 mg q 12 hrs prn cymbalta 60 mg hs po/30 mg po am fluticasone 50 mcg 2 sprays daily folic acid one mg po propranolol 60 mg am 60 mg pm po nicorette 2mg po q 2hrs olanzapine 5mg po dauly ticagrelor 90 mg po bid trazadone po hs 100mg omeprazole 40 mg po qd -Compliance Patient reports compliance w/ prescribed meds [Medication Education] -Education Importance of medication compliance, Medication purpose, Medication schedule, Medication side effects -Date Completed 11/15/21 -Initials agnes -Education Summary pts med list gone over with pt. [Medication Goals] -Goals Adherence to medication compliance -Comments states understands purpose of meds
== END 2022-06-26 07:59 | disposition home or self-care (01) ==
LOC: HO.CR 12:33
PROVIDERS: PCP Internal Medicine; Visit Provider Nurse Practitioner Family
DX: I20.0 Unstable angina (principal); Z95.5 Presence of coronary angioplasty implant and graft
CPT/HCPCS: 93798

== ENCOUNTER → 2022-01-17 13:00 | Outpatient (BNVA) | payer OTHER, SELFPAY ==
[2021-11-15 06:43] VITALS: BP 110/70; BP 138/66
[2022-01-03 07:25] VITALS: BP 114/62; BMI 21.8
== END ==
PROVIDERS: PCP Internal Medicine; Referring Provider Internal Medicine; Visit Provider Internal Medicine Cardiovascular Disease
DX: R07.9 Chest pain, unspecified (principal)
CPT/HCPCS: 93005; 99212

== ENCOUNTER → 2022-01-31 08:41 | Outpatient (REF) | payer OTHER, SELFPAY ==
[2021-11-15 06:43] VITALS: BP 110/70; BP 138/66
[2022-01-03 07:25] VITALS: BP 114/62; BMI 21.8
--- NOTE | ~2022-01-31 | NM_ITS ---
Myocardial perfusion study Indication: Coronary artery disease Technique: The patient was brought in for a Lexiscan perfusion study on 01/31/2022. Patient performed low-level exercise and was injected 0.4 mg of Lexiscan intravenously. Within a minute of injection, 25 mCi of sestamibi was given intravenously. Images were obtained using the SPECT gamma camera interlaced with the gating device. Images were obtained in supine position. Resting perfusion study was performed on 02/02/2022. Patient was administered 25 mCi of sestamibi intravenously at rest. Images were then obtained in supine position. Images obtained with and without CT attenuation. Total DLP 67 mGy-cm. Images were processed with the software and compared side to side in short axis, horizontal long axis and vertical long axis views. Findings: Both sets of images demonstrate stress and rest perfusion study was somewhat suboptimal due to intense subdiaphragmatic uptake interfering with inferior and inferolateral wall uptake. The stress perfusion study showed non attenuated images show minimally reduced uptake in the basal and mid inferior wall of the LV myocardium. Remainder of the LV myocardium is normally perfused. Attenuation corrected images show some thinning of the distal anterior wall of the LV myocardium as well as normalized uptake in all segments of LV myocardium.. The gated study shows normal LV systolic function with calculated LVEF of 63%. LV cavity is normal in size. The gated study shows normal systolic wall thickening and contraction of segments. Resting study shows non attenuated images show normal uptake of radiotracer in all segments of LV myocardium. Attenuation corrected images are suboptimal due to subdiaphragmatic uptake causing diffusely reduced uptake in multiple segments.. Gating at rest reveals normal systolic wall motion with visually estimated ejection fraction at greater than 60 %. The findings are consistent with likely normal myocardial perfusion. NM/NM muriel perf SPECT rest & str Impression: 1. Myocardial perfusion imaging study shows likely normal myocardial perfusion 2. Gated LVEF is 63% 3. Transient ischemic dilatation not present EKG is nondiagnostic for ischemia
--- NOTE | 2022-01-31 08:58 | CA_ITS ---
Acquisition Time: 2022-01-31 09:28:44 Total Exercise Time: 00:02:36 Test Indications: Chest Pain, SOB Medications: Protocol: KELECHI Max HR: 125 BPM 80% of Pred: 155 BPM Max BP: 136/058 mmHG Max Work Load: 4.6 METS Exercise stress test with exercise 2 min 36 sec of Kelechi protocol, with moderate to severe shortness if breath and need to stop exercise, no chest discomfort, without arrythmia, with nondiagnostic EKG for ischemia due to suboptimal heart rate and exercise time. Treadmill stopped and patient assisted to sitting position. Once breathing improved, testing changed to a pharmacological stress test with Lexiscan injection, with mild sob, with normotensive response to injection, with nondiagnostic EKG for ischemia. In recovery she was treated with Aminophylline 75mg IVP to reverse Lexiscan. Nuclear images pending. Test reviewed with Dr Willis. Referred By: Jewel Willis Overread By: TALON MCCARTHY
== END ==
LOC: HO.CARD 08:41
PROVIDERS: PCP Internal Medicine; Visit Provider Internal Medicine Cardiovascular Disease
DX: I25.10 Atherosclerotic heart disease of native coronary artery without angina pectoris (principal)
CPT/HCPCS: 78452; 93017; A9500; J0280; J2785

== ENCOUNTER 2022-02-28 12:45 | Outpatient (REF) | payer OTHER, SELFPAY ==
[2021-11-15 06:43] VITALS: BP 110/70; BP 138/66
[2022-02-28 14:16] LABS: Hematocrit 33.9 % (37.0-47.0); Hemoglobin 11.2 g/dl (12.0-16.0); Mean Corpuscular Hemoglobin 29.9 pg (27.0-33.0); Mean Corpuscular Volume 90.6 fL (80.0-98.0); Mean Platelet Volume 10.3 fL (9.4-12.3); Platelet Count 215 X10*3/uL (160-400); Red Blood Count 3.74 X10*6/uL (4.20-5.50); Red Cell Distribution Width 13.5 % (11.0-16.0); White Blood Count 5.5 X10*3/uL (4.8-10.8)
[2022-02-28 14:20] LABS: INTERNATIONAL NORM RATIO 0.9 (0.9-1.1); Prothrombin Time 10.2 SEC (10.0-13.1)
[2022-02-28 14:57] LABS: Anion Gap 14 (12-20); Blood Urea Nitrogen 9 mg/dL (9-16); Calcium 8.2 mg/dL (8.4-10.2); Carbon Dioxide 25 mmol/L (22-29); Chloride 97 mmol/L (96-108); Estimated Glomerular Filt Rate 49; Glucose Random 91 mg/dL (60-115); Potassium 4.6 mmol/L (3.3-5.1); Sodium 131 mmol/L (135-145)
== END 2022-02-28 12:46 | disposition home or self-care (01) ==
LOC: HO.LAB 12:45
PROVIDERS: PCP Internal Medicine; Visit Provider Internal Medicine Cardiovascular Disease
DX: I25.10 Atherosclerotic heart disease of native coronary artery without angina pectoris (principal)
CPT/HCPCS: 36415; 80048; 85027; 85610

== ENCOUNTER 2022-03-30 08:36 | Outpatient (REF) | payer OTHER, SELFPAY ==
[2022-03-30 08:49] LABS: MANUAL DIFF FLAG NO
[2022-03-30 10:02] LABS: Basophils Percent Auto 0.5 % (0-2); Eosinophils Absolute Auto 0.4 X10*3/uL (0.0-0.4); Eosinophils Percent Auto 6.3 % (0-4); Hematocrit 34.3 % (37.0-47.0); Hemoglobin 10.8 g/dl (12.0-16.0); Imm Gran Abs Auto 0.02 X10*3/uL (0.00-0.03); Imm Gran Pct Auto 0.3 % (0.0-0.4); Lymphocytes Absolute Auto 2.6 X10*3/uL (1.2-4.9); Lymphocytes Percent Auto 39.8 % (20-40); Mean Corpuscular HGB Conc 31.5 g/dl (31.0-35.0); Mean Corpuscular Hemoglobin 30.1 pg (27.0-33.0); Mean Corpuscular Volume 95.5 fL (80.0-98.0); Mean Platelet Volume 10.1 fL (9.4-12.3); Monocytes Absolute Auto 0.6 X10*3/uL (0.1-1.2); Monocytes Percent Auto 8.9 % (2-11); Neutrophils Absolute Auto 2.9 x10*3/uL (2.0-8.3); Neutrophils Percent Auto 44.2 % (45-73); Platelet Count 317 X10*3/uL (160-400); Red Blood Count 3.59 X10*6/uL (4.20-5.50); Red Cell Distribution Width 15.1 % (11.0-16.0); White Blood Count 6.6 X10*3/uL (4.8-10.8)
[2022-03-30 10:04] LABS: INTERNATIONAL NORM RATIO 0.9 (0.9-1.1); Prothrombin Time 10.1 SEC (10.0-13.1)
[2022-03-30 10:35] LABS: Anion Gap 14 (12-20); Blood Urea Nitrogen 13 mg/dL (9-16); Carbon Dioxide 27 mmol/L (22-29); Chloride 105 mmol/L (96-108); Estimated Glomerular Filt Rate > 60; Glucose Random 96 mg/dL (60-115); Potassium 4.6 mmol/L (3.3-5.1); Sodium 141 mmol/L (135-145)
== END 2022-03-30 08:37 | disposition home or self-care (01) ==
LOC: HO.LAB 08:36
PROVIDERS: PCP Internal Medicine; Visit Provider Internal Medicine Cardiovascular Disease
DX: R07.9 Chest pain, unspecified (principal); Z98.890 Other specified postprocedural states
CPT/HCPCS: 36415; 80048; 85025; 85610

== ENCOUNTER → 2022-05-09 13:50 | Outpatient (BNVA) | payer OTHER, SELFPAY | PROVIDERS: PCP Internal Medicine; Referring Provider Internal Medicine; Visit Provider Internal Medicine Cardiovascular Disease | DX: I25.10 Atherosclerotic heart disease of native coronary artery without angina pectoris (principal); Z95.5 Presence of coronary angioplasty implant and graft | CPT/HCPCS: 93005; 99212 ==

== ENCOUNTER → 2022-10-11 15:15 | Outpatient (BNVA) | payer OTHER, SELFPAY | PROVIDERS: PCP Internal Medicine; Visit Provider Internal Medicine Cardiovascular Disease | DX: I20.8 Other forms of angina pectoris (principal) | CPT/HCPCS: 99212 ==

== ENCOUNTER 2023-05-05 13:28 | Emergency (ER) | payer OTHER, SELFPAY ==
--- NOTE | ~2023-05-05 | XR_ITS ---
EXAMINATION: XR knee RT 4V CLINICAL INFORMATION: Reason for Exam fall, pain COMPARISON: Prior study 2017 TECHNIQUE: Frontal lateral oblique and crosstable lateral view 4 views. FINDINGS: BONES: Mildly displaced transverse fracture through the patella obscured by bone overlap. Distal femur, proximal tibia and fibula are intact. JOINTS: Narrowing of joint spaces and developed osteophytes from the edges of articular surfaces suggest degenerative osteoarthritis. SOFT TISSUE: There is joint effusion. XR/XR knee RT 4V IMPRESSION: 1. Mildly displaced transverse fracture through the patella obscured by bone overlap. 2. Joint effusion. 3. Underlying degenerative osteoarthritis.
--- NOTE | ~2023-05-05 | XR_ITS ---
EXAMINATION: XR WRIST, RIGHT XR HAND, RIGHT CLINICAL INFORMATION: Pain. Fall on outstretched hand COMPARISON: None available. TECHNIQUE: 3 views of the right hand. Cone-down navicular view of the wrist. FINDINGS: RIGHT WRIST: No acute abnormality. No fracture or dislocation. There is degenerative joint narrowing between the navicular and multangular bones. Radiocarpal joint is normal. RIGHT HAND: No acute abnormality. No fracture is. Minor degenerative spurring of the distal phalange of the IP joint of the thumb. XR/XR hand wrist RT IMPRESSION: 1. No acute abnormality of the wrist or hand. 2. Degenerative joint narrowing between the navicular and multangular bones.
[2023-05-05 13:40] VITALS: BP 82/56; PULSE 80; RESP 18; TEMP 36.7; O2SAT 98; BMI 21.9
--- NOTE | 2023-05-05 13:41 | ED.FALL ---
HPI - Fall General Chief Complaint: Fall Stated Complaint: Fell - right knee pain Time Seen by Provider: 05/05/23 14:03 Related Data Home Medications Medication Instructions Recorded Confirmed albuterol sulfate 2.5 mg/3 mL 1 - 2 vial inhalation Q4H PRN 11/15/20 10/11/22 (0.083 %) solution for nebulization wheezing albuterol sulfate 90 mcg/actuation 2 puff inhalation Q4H PRN wheezing 11/15/20 10/11/22 aerosol inhaler cyclobenzaprine 10 mg tablet 1 tab PO BID PRN muscle spasm 11/15/20 10/11/22 diphenhydramine HCl 25 mg capsule 1 cap PO Q12H PRN 11/15/20 10/11/22 (Banophen) DYSTONIA/ALLERGIES fluticasone propionate 50 2 spray intranasal DAILY 11/15/20 10/11/22 mcg/actuation nasal spray,suspension folic acid 1 mg tablet 1 tab PO DAILY 11/15/20 10/11/22 nicotine (polacrilex) 2 mg gum 1 ea PO Q2H PRN Nicotine Cravings 11/15/20 10/11/22 (Nicorette) trazodone 100 mg tablet 1 - 2 tab PO BEDTIME PRN insomnia 11/15/20 10/11/22 cholecalciferol (vitamin D3) 50 50 mcg PO DAILY 08/22/21 10/11/22 mcg (2,000 unit) tablet duloxetine 30 mg capsule,delayed 30 mg PO QAM 08/22/21 10/11/22 release (Cymbalta) duloxetine 60 mg capsule,delayed 60 mg PO BEDTIME 08/22/21 10/11/22 release (Cymbalta) fluticasone furoate 100 1 ea inhalation DAILY 01/17/22 10/11/22 mcg-vilanterol 25 mcg/dose inhalation powder (Breo Ellipta) propranolol 60 mg tablet 60 mg PO BID 01/17/22 10/11/22 meclizine 25 mg tablet 25 mg PO DAILY PRN 05/09/22 10/11/22 olanzapine 7.5 mg tablet 7.5 mg PO BEDTIME 05/09/22 10/11/22 omeprazole 40 mg capsule,delayed 40 mg PO DAILY 05/09/22 10/11/22 release Previous Rx's Medication Instructions Recorded aspirin 81 mg tablet,delayed 81 mg PO DAILY 90 days #90 tabs 05/24/21 release atorvastatin 80 mg tablet 80 mg PO DAILY 90 days #90 tabs 05/24/21 ticagrelor 90 mg tablet (Brilinta) 90 mg PO BID 90 days #180 tabs 07/17/22 oxycodone 5 mg tablet 5 mg PO Q6H PRN pain #15 tabs 05/05/23 walker #1 ea 05/05/23 Allergies Allergy/AdvReac Type Severity Reaction Status Date / Time Penicillins [PENICILLINS] Allergy Unknown STOPS Verified 05/05/23 13:46 BREATHING shellfish derived Allergy Unknown SWELLING/THROAT Verified 05/05/23 13:46 [SHELLFISH DERIVED] CLOSES Sulfa (Sulfonamide Allergy Unknown THROAT Verified 05/05/23 13:46 Antibiotics) CLOSES [SULFA (SULFONAMIDE ANTIBIOTICS)] aripiprazole [From ABILIFY] AdvReac Severe dystonic Verified 05/05/23 13:46 reaction morphine AdvReac Intermediate Rash Verified 05/05/23 13:46 sulfa Allergy Unknown unknown Uncoded 05/05/23 13:46 PMFSH Past Medical History Onset Date is defined in the Problem List Problems that require an onset date and time if occurred within 24 hrs of arrival to the ED Aortic Dissection and Rupture; Neurologic impairment; Cardiopulmonary Arrest; Endotracheal Intubation; Insertion or Replacement of Mechanical Circulatory Assist Device Medical History CAD (coronary artery disease) Lupus Surgical History History of partial mastectomy of left breast History of appendectomy Hx of cardiac cath Family History Family History Mother Enlarged heart CAD (coronary artery disease) Sister Heart attack Brother Throat cancer Brother Lung cancer Social History Social History (Updated 10/11/22 @ 15:39 by ANDRE Rojas) Alcohol intake: current Alcohol intake frequency: does not drink Patient Tobacco Use Status: Former Tobacco user Quit Date: September 2022 Tobacco use type: Cigarette Years Smoked: 25 +/- Smoked in Last 30 Days: No Use of substances other than those prescribed or required for medical reasons: No Advance Directives: Yes Advance Directives Information Provided: Yes Advance Directives on File: No Physical Exam Vital Signs: Vital Signs: Last Vital Signs Temp 98.1 F 05/05/23 14:21 Pulse 79 05/05/23 16:01 Resp 16 05/05/23 16:01 BP 121/58 L 05/05/23 16:01 Pulse Ox 98 05/05/23 13:40 O2 Del Method Room Air 05/05/23 13:40 BMI result Body Mass Index 21.9 Course Course Course Narrative: This is an RME: Additional HPI, ROS, PE not included below will be deferred to primary provider. Patient is a 67-year-old presents emergency department in a wheelchair for evaluation of right knee pain after a fall 2 days ago. Reports that she slipped outside on the ice falling forward. Reports head strike, denies LOC, reports on Brillinta, denies headache, vision changes, dizziness, neck pain. Has pain to right hand and right knee. She is noted to be hypotensive 82/56, she states it is typically low due to propranolol, asymptomatic at this time. Plan: imaging Medications Administered Discontinued Medications Generic Name Dose Route Start Last Admin Trade Name Freq PRN Reason Stop Dose Admin Sodium Chloride 1,000 mls @ 999 mls/hr 05/05/23 14:45 05/05/23 16:02 Ns IVCONT 05/05/23 15:45 Infused .Q1H1M MELISSA Infusion Oxycodone HCl 5 mg 05/05/23 14:40 05/05/23 15:05 Oxycodone Hcl Immed Release 5 Mg Tablet PO 05/05/23 14:41 5 mg ONCE ONE Administration Medical Decision Making Lab Data 05/05/23 14:59 05/05/23 14:59 Labs: Lab Results 05/05/23 Range/Units 14:59 WBC 7.3 (4.8-10.8) X10*3/uL RBC 3.61 L (4.20-5.50) X10*6/uL Hgb 10.6 L (12.0-16.0) g/dl Hct 31.5 L (37.0-47.0) % MCV 87.3 (80.0-98.0) fL MCH 29.4 (27.0-33.0) pg MCHC 33.7 (31.0-35.0) g/dl RDW 14.3 (11.0-16.0) % Plt Count 270 (160-400) X10*3/uL MPV 9.4 (9.4-12.3) fL Immature Gran % (Auto) 0.1 (0.0-0.4) % Neut % (Auto) 54.9 (45-73) % Lymph % (Auto) 28.7 (20-40) % [place] % (Auto) 10.1 (2-11) % Eos % (Auto) 5.9 H (0-4) % Baso % (Auto) 0.3 (0-2) % Lymph # (Auto) 2.1 (1.2-4.9) X10*3/uL [place] # (Auto) 0.7 (0.1-1.2) X10*3/uL Eos # (Auto) 0.4 (0.0-0.4) X10*3/uL Baso # (Auto) 0.0 (0.0-0.2) X10*3/uL Abs Immat Gran (auto) 0.01 (0.00-0.03) X10*3/uL Absolute Neuts (auto) 4.0 (2.0-8.3) x10*3/uL Absolute Nucleated RBC 0.000 (0.0-0.012) X10*3/uL Nucleated RBC % (auto) 0.0 (0.0-0.2) /100WBC Sodium 128 L (135-145) mmol/L Potassium 4.1 (3.3-5.1) mmol/L Chloride 97 (96-108) mmol/L Carbon Dioxide 23 (22-29) mmol/L Anion Gap 12 (12-20) BUN 13 (9-16) mg/dL Creatinine 1.21 (0.5-1.4) mg/dL Estim Creat Clear Calc 36.1 Estimated GFR 45 Random Glucose 94 (60-115) mg/dL Calcium 8.6 (8.4-10.2) mg/dL Total Bilirubin 0.4 (0.0-1.0) mg/dL AST 15 (5-31) U/L ALT 12 (0-31) U/L Alkaline Phosphatase 115 (39-117) U/L Total Protein 7.2 (6.5-8.0) g/dL Albumin 3.6 (3.5-5.0) g/dL Discharge Plan Discharge Clinical Impression: Patellar fracture Qualifiers: Encounter type: initial encounter Fracture type: closed Fracture morphology: transverse Fracture alignment: displaced Laterality: right Qualified Code(s): S82.031A - Displaced transverse fracture of right patella, initial encounter for closed fracture Patient Disposition: Home, Self-Care Instructions: Patellar Fracture (ED) Additional Instructions: Follow-up with ortho Clinic make an appointment tomorrow keep the knee immobilizer on Prescriptions: New oxycodone 5 mg tablet 5 mg PO Q6H PRN (Reason: pain) Qty: 15 0RF Rx Instructions: partial filing upon pt request; Partial Fill upon patient request. (CATY) kenyetta Luciano See Rx Instructions .Route Qty: 1 0RF Rx Instructions: As directed No Action aspirin 81 mg tablet,delayed release (DR/EC) 81 mg PO DAILY 90 Days Qty: 90 3RF atorvastatin 80 mg tablet 80 mg PO DAILY 90 Days Qty: 90 2RF Brilinta 90 mg tablet 90 mg PO BID 90 Days Qty: 180 3RF cyclobenzaprine 10 mg tablet 1 tab PO BID PRN (Reason: muscle spasm) albuterol sulfate 2.5 mg /3 mL (0.083 %) solution for nebulization 1 - 2 vial inhalation Q4H PRN (Reason: wheezing) nicotine (polacrilex) [Nicorette] 2 mg gum 1 ea PO Q2H PRN (Reason: Nicotine Cravings) trazodone 100 mg tablet 1 - 2 tab PO BEDTIME PRN (Reason: insomnia) diphenhydramine HCl [Banophen] 25 mg capsule 1 cap PO Q12H PRN (Reason: DYSTONIA/ALLERGIES) folic acid 1 mg tablet 1 tab PO DAILY albuterol sulfate 90 mcg/actuation HFA aerosol inhaler 2 puff inhalation Q4H PRN (Reason: wheezing) fluticasone propionate 50 mcg/actuation spray,suspension 2 spray intranasal DAILY duloxetine [Cymbalta] 60 mg capsule,delayed release(DR/EC) 60 mg PO BEDTIME Rx Instructions: TOTAL DOSE = 90MG duloxetine [Cymbalta] 30 mg capsule,delayed release(DR/EC) 30 mg PO QAM Rx Instructions: TOTAL DOSE = 90MG olanzapine 7.5 mg tablet 7.5 mg PO BEDTIME omeprazole 40 mg capsule,delayed release(DR/EC) 40 mg PO DAILY cholecalciferol (vitamin D3) 50 mcg (2,000 unit) tablet 50 mcg PO DAILY fluticasone furoate-vilanterol [Breo Ellipta] 100-25 mcg/dose blister with device 1 ea inhalation DAILY propranolol 60 mg tablet 60 mg PO BID meclizine 25 mg tablet 25 mg PO DAILY PRN Referrals: Wyatt Tobias MD [Physician] - 2 days Interventions: ED Discharge Assessment Last Done: 05/05/23 16:14 Discharge Date/Time: 05/05/23 16:14
--- NOTE | 2023-05-05 14:04 | ED.FALL ---
HPI - Fall General Chief Complaint: Fall Stated Complaint: Fell - right knee pain Time Seen by Provider: 05/05/23 14:03 Source: patient Limitations: no limitations History of Present Illness HPI Narrative: 67 years old female presented to the emergency department complaining of right knee pain she fell on Saturday outside tripped and fell no LOC. MD complaint: fall Onset (ago): day(s) (3) Fall from: standing Loss of consciousness: none Prolonged down time: no Symptoms prior to fall: none Context: tripped/slipped Location of injury - extremities: right: hand and knee Severity: moderate Quality: dull Associated symptoms (after fall): denies Related Data Home Medications Medication Instructions Recorded Confirmed albuterol sulfate 2.5 mg/3 mL 1 - 2 vial inhalation Q4H PRN 11/15/20 10/11/22 (0.083 %) solution for nebulization wheezing albuterol sulfate 90 mcg/actuation 2 puff inhalation Q4H PRN wheezing 11/15/20 10/11/22 aerosol inhaler cyclobenzaprine 10 mg tablet 1 tab PO BID PRN muscle spasm 11/15/20 10/11/22 diphenhydramine HCl 25 mg capsule 1 cap PO Q12H PRN 11/15/20 10/11/22 (Banophen) DYSTONIA/ALLERGIES fluticasone propionate 50 2 spray intranasal DAILY 11/15/20 10/11/22 mcg/actuation nasal spray,suspension folic acid 1 mg tablet 1 tab PO DAILY 11/15/20 10/11/22 nicotine (polacrilex) 2 mg gum 1 ea PO Q2H PRN Nicotine Cravings 11/15/20 10/11/22 (Nicorette) trazodone 100 mg tablet 1 - 2 tab PO BEDTIME PRN insomnia 11/15/20 10/11/22 cholecalciferol (vitamin D3) 50 50 mcg PO DAILY 08/22/21 10/11/22 mcg (2,000 unit) tablet duloxetine 30 mg capsule,delayed 30 mg PO QAM 08/22/21 10/11/22 release (Cymbalta) duloxetine 60 mg capsule,delayed 60 mg PO BEDTIME 08/22/21 10/11/22 release (Cymbalta) fluticasone furoate 100 1 ea inhalation DAILY 01/17/22 10/11/22 mcg-vilanterol 25 mcg/dose inhalation powder (Breo Ellipta) propranolol 60 mg tablet 60 mg PO BID 01/17/22 10/11/22 meclizine 25 mg tablet 25 mg PO DAILY PRN 05/09/22 10/11/22 olanzapine 7.5 mg tablet 7.5 mg PO BEDTIME 05/09/22 10/11/22 omeprazole 40 mg capsule,delayed 40 mg PO DAILY 05/09/22 10/11/22 release Previous Rx's Medication Instructions Recorded aspirin 81 mg tablet,delayed 81 mg PO DAILY 90 days #90 tabs 05/24/21 release atorvastatin 80 mg tablet 80 mg PO DAILY 90 days #90 tabs 05/24/21 ticagrelor 90 mg tablet (Brilinta) 90 mg PO BID 90 days #180 tabs 07/17/22 oxycodone 5 mg tablet 5 mg PO Q6H PRN pain #15 tabs 05/05/23 walker #1 ea 05/05/23 Allergies Allergy/AdvReac Type Severity Reaction Status Date / Time Penicillins [PENICILLINS] Allergy Unknown STOPS Verified 05/05/23 13:46 BREATHING shellfish derived Allergy Unknown SWELLING/THROAT Verified 05/05/23 13:46 [SHELLFISH DERIVED] CLOSES Sulfa (Sulfonamide Allergy Unknown THROAT Verified 05/05/23 13:46 Antibiotics) CLOSES [SULFA (SULFONAMIDE ANTIBIOTICS)] aripiprazole [From ABILIFY] AdvReac Severe dystonic Verified 05/05/23 13:46 reaction morphine AdvReac Intermediate Rash Verified 05/05/23 13:46 sulfa Allergy Unknown unknown Uncoded 05/05/23 13:46 Review of Systems Constitutional: Constitutional: Reports no additional constitutional complaints Cardiovascular: Cardiovascular: Reports no additional cardiovascular complaints Gastrointestinal: Gastrointestinal: Reports no additional gastrointestinal complaints [facility] Past Medical History Attestation statement: The following information was validated with the patient. [facility] Narrative: CAD Onset Date is defined in the Problem List Problems that require an onset date and time if occurred within 24 hrs of arrival to the ED Aortic Dissection and Rupture; Neurologic impairment; Cardiopulmonary Arrest; Endotracheal Intubation; Insertion or Replacement of Mechanical Circulatory Assist Device Medical History CAD (coronary artery disease) Lupus Surgical History History of partial mastectomy of left breast History of appendectomy Hx of cardiac cath Family History Family History Mother Enlarged heart CAD (coronary artery disease) Sister Heart attack Brother Throat cancer Brother Lung cancer Social History Social History (Updated 10/11/22 @ 15:39 by ANDRE Rojas) Alcohol intake: current Alcohol intake frequency: does not drink Patient Tobacco Use Status: Former Tobacco user Quit Date: September 2022 Tobacco use type: Cigarette Years Smoked: 25 +/- Smoked in Last 30 Days: No Use of substances other than those prescribed or required for medical reasons: No Advance Directives: Yes Advance Directives Information Provided: Yes Advance Directives on File: No Physical Exam Vital Signs: Vital Signs: Last Vital Signs Temp 98.1 F 05/05/23 14:21 Pulse 79 05/05/23 16:01 Resp 16 05/05/23 16:01 BP 121/58 L 05/05/23 16:01 Pulse Ox 98 05/05/23 13:40 O2 Del Method Room Air 05/05/23 13:40 BMI result Body Mass Index 21.9 Const: General: cooperative Nutritional Appearance: well nourished Orientation/consciousness: patient oriented x3 Limitations: no limitations HEENT: Head: Yes normal to inspection Ears: hearing grossly normal bilaterally General nose exam: Normal external nose present Face and sinus: Yes normal facial exam Mouth: Normal oral and palatal mucosa present Neck: Neck: Yes normal visual inspection Chest: Chest palpation & inspection: normal inspection of the chest Resp: Effort & Inspection: normal respiratory effort Auscultation: clear to auscultation bilaterally Cardio: Jugular venous distension: no JVD Rate: regular rate Rhythm: regular rhythm GI: Inspection: Yes normal to inspection Palpation (GI): Soft to palpation, not firm and nontender Percussion: Yes normal to percussion Auscultation: normal bowel sounds Skin: General skin exam: no rashes or lesions noted Trauma: no lacerations or abrasions Wounds: no wounds Hair: normal Neuro: General: patient oriented x3 Cranial nerves: Yes CN's II-XII intact bilaterally and Yes Bilaterally intact EOM present Extrem: Other: rt knee swelling deformity effusion Course Reevaluation(s) Reevaluation #1: Spoke with Ortho Wes[facility] knee immobilizer crutches Time: 14:15 Reevaluation #2: BP was noted repeated by me usually at baseline she has a systolic of 90s she has no symptom otherwise no chest pain no shortness of breath no dizziness no syncope or near syncopal episode she feels fine otherwise so I do not think I need to put an IV and administer fluids Time: 14:22 Medications Administered Discontinued Medications Generic Name Dose Route Start Last Admin Trade Name Milly PRN Reason Stop Dose Admin Sodium Chloride 1,000 mls @ 999 mls/hr 05/05/23 14:45 05/05/23 16:02 Ns IVCONT 05/05/23 15:45 Infused .Q1H1M MELISSA Infusion Oxycodone HCl 5 mg 05/05/23 14:40 05/05/23 15:05 Oxycodone Hcl Immed Release 5 Mg Tablet PO 05/05/23 14:41 5 mg ONCE ONE Administration Medical Decision Making Lab Data 05/05/23 14:59 05/05/23 14:59 Labs: Lab Results 05/05/23 Range/Units 14:59 WBC 7.3 (4.8-10.8) X10*3/uL RBC 3.61 L (4.20-5.50) X10*6/uL Hgb 10.6 L (12.0-16.0) g/dl Hct 31.5 L (37.0-47.0) % MCV 87.3 (80.0-98.0) fL MCH 29.4 (27.0-33.0) pg MCHC 33.7 (31.0-35.0) g/dl RDW 14.3 (11.0-16.0) % Plt Count 270 (160-400) X10*3/uL MPV 9.4 (9.4-12.3) fL Immature Gran % (Auto) 0.1 (0.0-0.4) % Neut % (Auto) 54.9 (45-73) % Lymph % (Auto) 28.7 (20-40) % [place] % (Auto) 10.1 (2-11) % Eos % (Auto) 5.9 H (0-4) % Baso % (Auto) 0.3 (0-2) % Lymph # (Auto) 2.1 (1.2-4.9) X10*3/uL [place] # (Auto) 0.7 (0.1-1.2) X10*3/uL Eos # (Auto) 0.4 (0.0-0.4) X10*3/uL Baso # (Auto) 0.0 (0.0-0.2) X10*3/uL Abs Immat Gran (auto) 0.01 (0.00-0.03) X10*3/uL Absolute Neuts (auto) 4.0 (2.0-8.3) x10*3/uL Absolute Nucleated RBC 0.000 (0.0-0.012) X10*3/uL Nucleated RBC % (auto) 0.0 (0.0-0.2) /100WBC Sodium 128 L (135-145) mmol/L Potassium 4.1 (3.3-5.1) mmol/L Chloride 97 (96-108) mmol/L Carbon Dioxide 23 (22-29) mmol/L Anion Gap 12 (12-20) BUN 13 (9-16) mg/dL Creatinine 1.21 (0.5-1.4) mg/dL Estim Creat Clear Calc 36.1 Estimated GFR 45 Random Glucose 94 (60-115) mg/dL Calcium 8.6 (8.4-10.2) mg/dL Total Bilirubin 0.4 (0.0-1.0) mg/dL AST 15 (5-31) U/L ALT 12 (0-31) U/L Alkaline Phosphatase 115 (39-117) U/L Total Protein 7.2 (6.5-8.0) g/dL Albumin 3.6 (3.5-5.0) g/dL Discharge Plan Discharge Clinical Impression: Patellar fracture Qualifiers: Encounter type: initial encounter Fracture type: closed Fracture morphology: transverse Fracture alignment: displaced Laterality: right Qualified Code(s): S82.031A - Displaced transverse fracture of right patella, initial encounter for closed fracture Patient Disposition: Home, Self-Care Instructions: Patellar Fracture (ED) Additional Instructions: Follow-up with ortho Clinic make an appointment tomorrow keep the knee immobilizer on Prescriptions: New oxycodone 5 mg tablet 5 mg PO Q6H PRN (Reason: pain) Qty: 15 0RF Rx Instructions: partial filing upon pt request; Partial Fill upon patient request. (DME) kenyetta Luciano See Rx Instructions .Route Qty: 1 0RF Rx Instructions: As directed No Action aspirin 81 mg tablet,delayed release (DR/EC) 81 mg PO DAILY 90 Days Qty: 90 3RF atorvastatin 80 mg tablet 80 mg PO DAILY 90 Days Qty: 90 2RF Brilinta 90 mg tablet 90 mg PO BID 90 Days Qty: 180 3RF cyclobenzaprine 10 mg tablet 1 tab PO BID PRN (Reason: muscle spasm) albuterol sulfate 2.5 mg /3 mL (0.083 %) solution for nebulization 1 - 2 vial inhalation Q4H PRN (Reason: wheezing) nicotine (polacrilex) [Nicorette] 2 mg gum 1 ea PO Q2H PRN (Reason: Nicotine Cravings) trazodone 100 mg tablet 1 - 2 tab PO BEDTIME PRN (Reason: insomnia) diphenhydramine HCl [Banophen] 25 mg capsule 1 cap PO Q12H PRN (Reason: DYSTONIA/ALLERGIES) folic acid 1 mg tablet 1 tab PO DAILY albuterol sulfate 90 mcg/actuation HFA aerosol inhaler 2 puff inhalation Q4H PRN (Reason: wheezing) fluticasone propionate 50 mcg/actuation spray,suspension 2 spray intranasal DAILY duloxetine [Cymbalta] 60 mg capsule,delayed release(DR/EC) 60 mg PO BEDTIME Rx Instructions: TOTAL DOSE = 90MG duloxetine [Cymbalta] 30 mg capsule,delayed release(DR/EC) 30 mg PO QAM Rx Instructions: TOTAL DOSE = 90MG olanzapine 7.5 mg tablet 7.5 mg PO BEDTIME omeprazole 40 mg capsule,delayed release(DR/EC) 40 mg PO DAILY cholecalciferol (vitamin D3) 50 mcg (2,000 unit) tablet 50 mcg PO DAILY fluticasone furoate-vilanterol [Breo Ellipta] 100-25 mcg/dose blister with device 1 ea inhalation DAILY propranolol 60 mg tablet 60 mg PO BID meclizine 25 mg tablet 25 mg PO DAILY PRN Referrals: Wyatt Tobias MD [Physician] - 2 days Interventions: ED Discharge Assessment Last Done: 05/05/23 16:14 Discharge Date/Time: 05/05/23 16:14
[2023-05-05 14:21] VITALS: BP 86/48; PULSE 77; RESP 16; TEMP 36.7
--- NOTE | 2023-05-05 14:29 | PC.NURSE ---
per patient, she tends to run low on BP; she is currently taking Propranolol and Flexeril which per patient can cause low blood pressures. She is asymptomatic at this time. No IV is need per attending.
[2023-05-05] MEDS: 0.9 % Sodium Chloride 1,000 ML 999 ML IVCONT (15:00)
[2023-05-05 15:04] LABS: MANUAL DIFF FLAG NO
[2023-05-05 15:05] LABS: Basophils Percent Auto 0.3 % (0-2); Eosinophils Absolute Auto 0.4 X10*3/uL (0.0-0.4); Eosinophils Percent Auto 5.9 % (0-4); Hematocrit 31.5 % (37.0-47.0); Hemoglobin 10.6 g/dl (12.0-16.0); Imm Gran Abs Auto 0.01 X10*3/uL (0.00-0.03); Imm Gran Pct Auto 0.1 % (0.0-0.4); Lymphocytes Absolute Auto 2.1 X10*3/uL (1.2-4.9); Lymphocytes Percent Auto 28.7 % (20-40); Mean Corpuscular HGB Conc 33.7 g/dl (31.0-35.0); Mean Corpuscular Hemoglobin 29.4 pg (27.0-33.0); Mean Corpuscular Volume 87.3 fL (80.0-98.0); Mean Platelet Volume 9.4 fL (9.4-12.3); Monocytes Absolute Auto 0.7 X10*3/uL (0.1-1.2); Monocytes Percent Auto 10.1 % (2-11); Neutrophils Percent Auto 54.9 % (45-73); Platelet Count 270 X10*3/uL (160-400); Red Blood Count 3.61 X10*6/uL (4.20-5.50); Red Cell Distribution Width 14.3 % (11.0-16.0); White Blood Count 7.3 X10*3/uL (4.8-10.8)
[2023-05-05] MEDS: oxyCODONE HCl Immed Release 5 MG TABLET PO (15:05)
[2023-05-05 15:19] LABS: Alanine Aminotransferase 12 U/L (0-31); Albumin Level 3.6 g/dL (3.5-5.0); Alkaline Phosphatase 115 U/L (39-117); Anion Gap 12 (12-20); Aspartate Amino Transferase 15 U/L (5-31); Bilirubin Total 0.4 mg/dL (0.0-1.0); Blood Urea Nitrogen 13 mg/dL (9-16); Calcium 8.6 mg/dL (8.4-10.2); Carbon Dioxide 23 mmol/L (22-29); Chloride 97 mmol/L (96-108); Creatinine Clr Calc Pharmacy 36.1; Estimated Glomerular Filt Rate 45; Glucose Random 94 mg/dL (60-115); Potassium 4.1 mmol/L (3.3-5.1); Sodium 128 mmol/L (135-145); Total Protein 7.2 g/dL (6.5-8.0)
[2023-05-05 15:29] VITALS: BP 109/58; PULSE 69; RESP 16
[2023-05-05 16:01] VITALS: BP 121/58; PULSE 79; RESP 16
== END 2023-05-05 16:14 | disposition home or self-care (01) ==
PROVIDERS: Emergency Provider Emergency Medicine; PCP Internal Medicine
DX: S82.031A Displaced transverse fracture of right patella, initial encounter for closed fracture (principal); S89.91XA Unspecified injury of right lower leg, initial encounter; M25.561 Pain in right knee; M79.641 Pain in right hand; M25.531 Pain in right wrist; W01.0XXA Fall on same level from slipping, tripping and stumbling without subsequent striking against object, initial encounter; Y93.9 Activity, unspecified; Y92.9 Unspecified place or not applicable; Y99.8 Other external cause status; Z79.899 Other long term (current) drug therapy; Z87.891 Personal history of nicotine dependence
CPT/HCPCS: 36415; 73110; 73130; 73564; 80053; 85025; 96360; 99284

== ENCOUNTER 2023-05-10 10:26 | Outpatient (REF) | payer OTHER, SELFPAY ==
[2023-05-08 09:40] VITALS: BP 114/62; BMI 21.8
--- NOTE | ~2023-05-10 | XR_ITS ---
EXAMINATION: XR KNEE, RIGHT CLINICAL INFORMATION: Pain. COMPARISON: 05/05/2023. TECHNIQUE: 2 views of the right knee. FINDINGS: Joint effusion. Moderate medial joint space narrowing and hypertrophic change. Mildly displaced fracture. XR/XR knee RT 2V IMPRESSION: Joint effusion. Moderate medial joint space narrowing and hypertrophic change. Redemonstration of mildly displaced transverse fracture through the patella. IMPRESSION: 1. Mildly displaced transverse fracture through the patella obscured by bone overlap with mild interval callous formation 2. Joint effusion. 3. Degenerative osteoarthritis.
== END 2023-05-10 10:27 | disposition home or self-care (01) ==
LOC: HO.HOSX 10:26
PROVIDERS: Visit Provider Physician Assistant
DX: Z01.818 Encounter for other preprocedural examination (principal); S82.031A Displaced transverse fracture of right patella, initial encounter for closed fracture
CPT/HCPCS: 73560; 99202

== ENCOUNTER 2023-05-10 10:48 | Outpatient (AMB) | payer OTHER, SELFPAY ==
[2023-05-08 09:40] VITALS: BP 114/62; BMI 21.8
[2023-05-10 10:59] VITALS: BMI 21.9
--- NOTE | 2023-05-10 10:59 | MHC.OFFVIS ---
Intake Vital Signs 05/10/23 10:59 Height 5 ft 2 in Weight 120 lb BMI 21.9 Intake Visit Reasons: Displaced transverse fracture of right patella Intake Note: Kasandra mathews 67 year old female presents today for an ER follow up of right patella fx, DOI 05/03/23. Patient reports she tripped and fell landing on her knee. She presented to [facility] ED on 05/05/23 where xrays were taken and placed in a knee immobilizer. Currently she is complaining of a lot of pain. She has had a decrease in swelling. She removes knee immobilizer for hygiene purposes and light ROM exercises. Denies numbness and tingling. Allergies Penicillins [PENICILLINS] Allergy (Unknown, Verified 05/10/23 11:00) STOPS BREATHING shellfish derived [SHELLFISH DERIVED] Allergy (Unknown, Verified 05/10/23 11:00) SWELLING/THROAT CLOSES Sulfa (Sulfonamide Antibiotics) [SULFA (SULFONAMIDE ANTIBIOTICS)] Allergy (Unknown, Verified 05/10/23 11:00) THROAT CLOSES aripiprazole [From ABILIFY] Adverse Reaction (Severe, Verified 05/10/23 11:00) dystonic reaction morphine Adverse Reaction (Intermediate, Verified 05/10/23 11:00) Rash sulfa Allergy (Unknown, Uncoded 05/10/23 11:00) unknown Medication List - Last Reconciled 05/10/23 by Wesly Hernandez PA-C albuterol sulfate 1 - 2 vials inhalation Q4H PRN albuterol sulfate 90 mcg/actuation 2 puffs inhalation Q4H PRN aspirin 81 mg PO DAILY 90 days atorvastatin 80 mg PO DAILY 90 days cholecalciferol (vitamin D3) 50 mcg PO DAILY cyclobenzaprine 1 tab PO BID PRN diphenhydramine HCl (Banophen) 1 cap PO Q12H PRN duloxetine (Cymbalta) 60 mg PO BEDTIME duloxetine (Cymbalta) 30 mg PO QAM fluticasone furoate-vilanterol 100-25 mcg/dose (Breo Ellipta) 1 ea inhalation DAILY fluticasone propionate 50 mcg/actuation 2 sprays intranasal DAILY folic acid 1 tab PO DAILY meclizine 25 mg PO DAILY PRN nicotine (polacrilex) (Nicorette) 1 ea PO Q2H PRN olanzapine 7.5 mg PO BEDTIME omeprazole 40 mg PO DAILY oxycodone 5 mg PO Q6H PRN propranolol 60 mg PO BID ticagrelor (Brilinta) 90 mg PO BID 90 days trazodone 1 - 2 tabs PO BEDTIME PRN walker As directed HPI Displaced transverse fracture of right patella HPI Details 67-year-old Romanian speaking female who presents to the office today with an medical reimbursement specialist for an ER follow-up of right knee injury s/p tripping and falling on her knee, 05/03/23. She was seen at ED 2 days later where x-rays were performed and he was placed in a knee immobilizer. She currently states she has chronic pain in her knee however her swelling has been improved. She denies any numbness or tingling. She is ambulating with a walker due to her pain. She has a history of muscle dystonia. [facility] Medical History CAD (coronary artery disease) Lupus Surgical History History of partial mastectomy of left breast History of appendectomy Hx of cardiac cath Family History Mother Enlarged heart CAD (coronary artery disease) Sister Heart attack Brother Throat cancer Brother Lung cancer Social History (Updated 05/10/23 @ 11:03 by ANDRE Smith) Alcohol intake: current Alcohol intake frequency: does not drink Patient Tobacco Use Status: Former Tobacco user Quit Date: September 2022 Tobacco use type: Cigarette Years Smoked: 25 +/- Current occupational status: retired Current occupation: left hand dominant Review of Systems Const All systems reviewed & are unremarkable except as noted in HPI and below Physical Exam Vital Signs: BMI result Body Mass Index 21.9 Const General: cooperative and no acute distress Orientation/consciousness: patient oriented x3 Resp Effort & Inspection: normal respiratory effort and able to speak in complete sentences Cardio Peripheral pulses: Peripheral pulses 2+ throughout Neuro General: patient oriented x3 Extrem Other: Right knee: Normal to inspection. Mild tenderness over the patella. No open wound or abrasion. NVI. Office Procedures Fracture Care Fracture Billing Code: Fracture Billing Code Results Reviewed Results Reviewed: X-rays of the right knee obtained in the office today show a mildly displaced transverse fracture through the patella. Assessment & Plan Assessment & Plan (1) Patellar fracture: Code(s): S82.009A - Unspecified fracture of unspecified patella, initial encounter for closed fracture Qualifiers: Encounter type: initial encounter Fracture alignment: displaced Fracture morphology: transverse Fracture type: closed Laterality: right Qualified Code(s): S82.031A - Displaced transverse fracture of right patella, initial encounter for closed fracture Plan I discussed the case with Dr. Tobias. I discussed the extent of the injury to the patient and options available. Given the extent of the fracture pattern and high risk of further displacement, it is recommended that we surgically fix this to help with stability and restoring anatomy. I explained to the patient the procedure in detail along with the risks, benefits and alternatives. Risks including but not limited to infection, wound breakdown, stiffness, ongoing pain, nonunion or malunion, and possible complications with hardware. She does understand all this and would like to proceed with open reduction internal fixation of the right patella with Dr. Tobias. She will be booked accordingly. Orders: Orders XR knee RT 2V Today M25.569 - Pain in unspecified knee Patient Instructions: Scribed for Wesly Hernandez PA-C, by Anjel Russo certified ophthalmic medical technician, on 05/10/2023 at 11:15 AM BABITA. Wesly Clark PA-C, have personally reviewed and agree with the information entered by the scribe. Coding Level of Care Code New Pt Level 4 (38241) Diagnoses Patellar fracture S82.031A Encounter type: initial encounter Fracture alignment: displaced Fracture morphology: transverse Fracture type: closed Laterality: right CPT Codes Fracture Care - Fracture Billing Code: Fracture Billing Code ([id number])
== END 2023-05-10 11:52 | disposition home or self-care (01) ==
PROVIDERS: PCP Internal Medicine; Visit Provider Physician Assistant
DX: S82.031A Displaced transverse fracture of right patella, initial encounter for closed fracture (principal)
CPT/HCPCS: 99204

== ENCOUNTER 2023-05-21 10:33 | Day surgery (SDC) | payer OTHER, SELFPAY ==
[2023-05-08 09:40] VITALS: BP 114/62; BMI 21.8
--- NOTE | 2023-05-20 13:16 | P.CONAN_ITS ---
Documented by User: Hetal Garcia NP 05/20/23 14:01 HPI - Anesthesia Eval Consult details Narrative: 67yo F for Right Patella ORIF Per last cardiology office visit 09/2022. 11/2020 cath after presented with NSTEMI. Cardiac catheterization shows severe mid right coronary artery and left anterior descending artery stenosis. We decided to treat the LAD with drug-eluting stent. 03/2021 subsequently she presented with chest pain again and was taken for cardiac catheterization and received drug-eluting stent to right coronary artery. 2021 She continues to smoke and was seen again for shortness of breath chest discomfort. She underwent stress testing when she was taken for cardiac catheterization. This showed severe InStent restenoses in the right coronary artery. This was treated with intravascular ultrasound guidance with drug- eluting stents. Stable angina and rec'd cardiac rehab at 09/2022 visit Per ortho office, pt has held aspirin and brillinta for >1 week. Unclear who instructed this. Cardiology is unable to risk stratify because it has been too long since last office visit. Reviewed case with Dr Morton. Will reach out to cardiology for possible bedside consult DOS. [facility] Active Problems Active Problems: All Active Problems (Updated 05/06/23 @ 00:00 by Isamar Darhonda) Stable angina (Acute) Chest pain (Acute) Status post cardiac catheterization (Acute) CAD (coronary artery disease) (Acute) S/P coronary artery stent placement (Acute) Unstable angina (Acute) Stented coronary artery (Acute) Hx of cardiac cath (Acute) NSTEMI (non-ST elevated myocardial infarction) (Acute) Past Medical History Medical History (Updated 05/20/23 @ 13:18 by Hetal Garcia NP) Stable angina NSTEMI (non-ST elevated myocardial infarction) CAD (coronary artery disease) Lupus Family History Family History Mother Enlarged heart CAD (coronary artery disease) Sister Heart attack Brother Throat cancer Brother Lung cancer Surgical History Surgical History (Updated 05/20/23 @ 13:18 by Hetal Garcia NP) Status post cardiac catheterization History of partial mastectomy of left breast History of appendectomy Hx of cardiac cath Social History Social History (Updated 05/10/23 @ 11:03 by ANDRE Smith) Alcohol intake: current Alcohol intake frequency: does not drink Patient Tobacco Use Status: Former Tobacco user Quit Date: 6 months ago Tobacco use type: Cigarette Years Smoked: 25 +/- Use of substances other than those prescribed or required for medical reasons: No Are you DNR?: No Advance Directives: No Advance Directives Information Provided: Yes Current occupational status: retired Current occupation: left hand dominant Meds Allergies Allergy/AdvReac Type Severity Reaction Status Date / Time Penicillins [PENICILLINS] Allergy Unknown STOPS Verified 05/21/23 11:30 BREATHING shellfish derived Allergy Unknown SWELLING/THROAT Verified 05/21/23 11:30 [SHELLFISH DERIVED] CLOSES Sulfa (Sulfonamide Allergy Unknown THROAT Verified 05/21/23 11:30 Antibiotics) CLOSES [SULFA (SULFONAMIDE ANTIBIOTICS)] aripiprazole [From ABILIFY] AdvReac Severe dystonic Verified 05/21/23 11:30 reaction morphine AdvReac Intermediate Rash Verified 05/21/23 11:30 sulfa Allergy Unknown unknown Uncoded 05/21/23 11:30 Home Medications Medication Instructions Recorded Confirmed Last Taken Type albuterol sulfate 2.5 mg/3 mL 1 - 2 vial inhalation Q4H PRN 11/15/20 05/10/23 Unknown History (0.083 %) solution for nebulization wheezing albuterol sulfate 90 mcg/actuation 2 puff inhalation Q4H PRN wheezing 11/15/20 05/10/23 Unknown History aerosol inhaler cyclobenzaprine 10 mg tablet 1 tab PO BID PRN muscle spasm 11/15/20 05/10/23 Unknown History diphenhydramine HCl 25 mg capsule 1 cap PO Q12H PRN 11/15/20 05/10/23 Unknown History (Banophen) DYSTONIA/ALLERGIES fluticasone propionate 50 2 spray intranasal DAILY 11/15/20 05/10/23 11/14/20 History mcg/actuation nasal spray,suspension folic acid 1 mg tablet 1 tab PO DAILY 11/15/20 05/21/23 05/20/23 History nicotine (polacrilex) 2 mg gum 1 ea PO Q2H PRN Nicotine Cravings 11/15/20 05/10/23 Unknown History (Nicorette) trazodone 100 mg tablet 1 - 2 tab PO BEDTIME PRN insomnia 11/15/20 05/10/23 Unknown History cholecalciferol (vitamin D3) 50 50 mcg PO DAILY 05/10/22 02/06/24 02/05/24 History mcg (2,000 unit) tablet duloxetine 30 mg capsule,delayed 30 mg PO QAM 08/22/21 05/21/23 05/21/23 History release (Cymbalta) duloxetine 60 mg capsule,delayed 60 mg PO BEDTIME 08/22/21 05/21/23 05/20/23 History release (Cymbalta) fluticasone furoate 100 1 ea inhalation DAILY 01/17/22 05/10/23 Unknown History mcg-vilanterol 25 mcg/dose inhalation powder (Breo Ellipta) propranolol 60 mg tablet 60 mg PO BID 01/17/22 05/21/23 05/21/23 History meclizine 25 mg tablet 25 mg PO DAILY PRN 05/09/22 05/10/23 Unknown History olanzapine 7.5 mg tablet 7.5 mg PO BEDTIME 05/09/22 05/21/23 05/20/23 History omeprazole 40 mg capsule,delayed 40 mg PO DAILY 05/09/22 05/21/23 05/21/23 History release Exam Pertinent Lab Results Pertinent Lab Results: Laboratory Tests 05/05/23 14:59 WBC 7.3 Hgb 10.6 L Hct 31.5 L Plt Count 270 BUN 13 Creatinine 1.21 Assessment and Plan Assessment Anesthesia Assessment: Chart Reviewed Documented by User: Chele Tucker MD 05/21/23 12:58 [facility] Past Medical History Medical History (Updated 05/20/23 @ 13:18 by Hetal Garcia NP) Stable angina NSTEMI (non-ST elevated myocardial infarction) CAD (coronary artery disease) Lupus Patient : No Family History Family History Mother Enlarged heart CAD (coronary artery disease) Sister Heart attack Brother Throat cancer Brother Lung cancer Family history of problems with anesthesia: No Surgical History Surgical History (Updated 05/20/23 @ 13:18 by Hetal Garcia NP) Status post cardiac catheterization History of partial mastectomy of left breast History of appendectomy Hx of cardiac cath History of Problems with Anesthesia: No Social History Social History (Updated 05/10/23 @ 11:03 by ANDRE Smith) Alcohol intake: current Alcohol intake frequency: does not drink Patient Tobacco Use Status: Former Tobacco user Quit Date: 6 months ago Tobacco use type: Cigarette Years Smoked: 25 +/- Use of substances other than those prescribed or required for medical reasons: No Are you DNR?: No Advance Directives: No Advance Directives Information Provided: Yes Current occupational status: retired Current occupation: left hand dominant Meds Allergies Allergy/AdvReac Type Severity Reaction Status Date / Time Penicillins [PENICILLINS] Allergy Unknown STOPS Verified 05/21/23 11:30 BREATHING shellfish derived Allergy Unknown SWELLING/THROAT Verified 05/21/23 11:30 [SHELLFISH DERIVED] CLOSES Sulfa (Sulfonamide Allergy Unknown THROAT Verified 05/21/23 11:30 Antibiotics) CLOSES [SULFA (SULFONAMIDE ANTIBIOTICS)] aripiprazole [From ABILIFY] AdvReac Severe dystonic Verified 05/21/23 11:30 reaction morphine AdvReac Intermediate Rash Verified 05/21/23 11:30 sulfa Allergy Unknown unknown Uncoded 05/21/23 11:30 Home Medications Medication Instructions Recorded Confirmed Last Taken Type albuterol sulfate 2.5 mg/3 mL 1 - 2 vial inhalation Q4H PRN 11/15/20 05/10/23 Unknown History (0.083 %) solution for nebulization wheezing albuterol sulfate 90 mcg/actuation 2 puff inhalation Q4H PRN wheezing 11/15/20 05/10/23 Unknown History aerosol inhaler cyclobenzaprine 10 mg tablet 1 tab PO BID PRN muscle spasm 11/15/20 05/10/23 Unknown History diphenhydramine HCl 25 mg capsule 1 cap PO Q12H PRN 11/15/20 05/10/23 Unknown History (Banophen) DYSTONIA/ALLERGIES fluticasone propionate 50 2 spray intranasal DAILY 11/15/20 05/10/23 11/14/20 History mcg/actuation nasal spray,suspension folic acid 1 mg tablet 1 tab PO DAILY 11/15/20 05/21/23 05/20/23 History nicotine (polacrilex) 2 mg gum 1 ea PO Q2H PRN Nicotine Cravings 11/15/20 05/10/23 Unknown History (Nicorette) trazodone 100 mg tablet 1 - 2 tab PO BEDTIME PRN insomnia 11/15/20 05/10/23 Unknown History cholecalciferol (vitamin D3) 50 50 mcg PO DAILY 08/22/21 05/21/23 05/20/23 History mcg (2,000 unit) tablet duloxetine 30 mg capsule,delayed 30 mg PO QAM 08/22/21 05/21/23 05/21/23 History release (Cymbalta) duloxetine 60 mg capsule,delayed 60 mg PO BEDTIME 08/22/21 05/21/23 05/20/23 History release (Cymbalta) fluticasone furoate 100 1 ea inhalation DAILY 01/17/22 05/10/23 Unknown History mcg-vilanterol 25 mcg/dose inhalation powder (Breo Ellipta) propranolol 60 mg tablet 60 mg PO BID 01/17/22 05/21/23 05/21/23 History meclizine 25 mg tablet 25 mg PO DAILY PRN 05/09/22 05/10/23 Unknown History olanzapine 7.5 mg tablet 7.5 mg PO BEDTIME 05/09/22 05/21/23 05/20/23 History omeprazole 40 mg capsule,delayed 40 mg PO DAILY 05/09/22 05/21/23 05/21/23 History release Exam Airway Mallampati Class: II TM Dist: >3cm Neck ROM: Full Loose/Missing/Broken Teeth: Yes Heart: rrr Lungs: cta bilateral Other: multiple missing and poor dentition Assessment and Plan Assessment Anesthesia Assessment: Anesthesia Plan Discussed and Smoking Cess. Discussed Final Anesthetic Review Family History of Problems with Anesthesia: No History of Problems with Anesthesia: No NPO: Yes ASA Class: III Final Preanesthetic Review: Meds/Allgs Chart Reviewed and Consent Obtained/Reviewed Patient Risk: Intermediate Procedure Risk: Intermediate Assessment/Block/Sedation in SS: Assess/Block/Sedation-SS Anesthetic Plan Anesthetic Plan: GA and Regional Block Disposition: Standard PACU
[2023-05-21] VITALS (15 sets, daily range): BP systolic 111–157; BP diastolic 63–81; PULSE 63–80; RESP 13–20; TEMP 36.5–36.9; O2SAT 94–100; BMI 23.4
--- NOTE | ~2023-05-21 | FL_ITS ---
EXAMINATION: XR FLUOROSCOPY WITH IMAGES CLINICAL INFORMATION: Right patellar fracture COMPARISON: Right knee 05/05/2023 TECHNIQUE: Fluoroscopy Supervised By: Dr. Tobias. Fluoroscopy Time: 0.5 minutes. Cumulative Dose: 1.59 mGy. DAP: 0.0276 Gycm2. Images: 2. FINDINGS: Fluoroscopic guidance and the operating room. AP and lateral spot fluoroscopic views of the right knee demonstrate 2 screws placed through the patella transfixing the previously seen patellar fracture. FL/FL guidance in OR IMPRESSION: Imaging assistance provided during a fluoroscopic procedure.
--- NOTE | 2023-05-21 11:01 | ECG_ITS ---
Test Reason : PRE OP Blood Pressure : / mmHG Vent. Rate : 068 BPM Atrial Rate : 068 BPM P-R Int : 158 ms QRS Dur : 074 ms QT Int : 428 ms P-R-T Axes : 056 046 060 degrees QTc Int : 455 ms Normal sinus rhythm Normal ECG No previous ECGs available Referred By: Hetal Garcia Electronically Signed By:YVETTE SOMERS
[2023-05-21] MEDS: Lactated Ringers 1,000 ML 100 ML IVCONT (11:35)
[2023-05-21 12:00] LABS: Anion Gap 12 (12-20); Carbon Dioxide 27 mmol/L (22-29); Chloride 104 mmol/L (96-108); Potassium 4.6 mmol/L (3.3-5.1); Sodium 138 mmol/L (135-145)
[2023-05-21] MEDS: vancomycin HCL 1,000 MG in 0.9 % Sodium Chloride 250 ML 270 MG IV (12:27)
--- NOTE | 2023-05-21 14:24 | MHC.SHP ---
Pre-Procedural Eval Section A - 24 Hr Update-Section A only Date of Service: 05/21/23 The patient is an INPATIENT: No Changes since office visit: No Cold of Flu in the past 2 weeks, No New Medical Problems, No Changes in Medication and No Patient answered all questions The patient has been examined within 24 hours of the surgical procedure. The History & Physical has been completed within 30 days and I have reviewed it.: Yes Section B - Complete if H&P > 30 days Chief Complaint: Displaced transverse fracture of right patella, in Allergies: Allergies Allergy/AdvReac Type Severity Reaction Status Date / Time Penicillins [PENICILLINS] Allergy Unknown STOPS Verified 05/21/23 11:30 BREATHING shellfish derived Allergy Unknown SWELLING/THROAT Verified 05/21/23 11:30 [SHELLFISH DERIVED] CLOSES Sulfa (Sulfonamide Allergy Unknown THROAT Verified 05/21/23 11:30 Antibiotics) CLOSES [SULFA (SULFONAMIDE ANTIBIOTICS)] aripiprazole [From ABILIFY] AdvReac Severe dystonic Verified 05/21/23 11:30 reaction morphine AdvReac Intermediate Rash Verified 05/21/23 11:30 sulfa Allergy Unknown unknown Uncoded 05/21/23 11:30 Plan I have reviewed the history and physical and performed a pertinent physical examination on my patient. No changes have occurred unless specified. Time Spent With Patient Time: Total time managing care of this patient today ____ minutes.
--- NOTE | 2023-05-21 15:18 | P.BOP_ITS ---
Brief Operative Note Date of Service: 05/21/23 Pre-op diagnosis: Right patella fracture Post-op diagnosis: same Procedure: ORIF right patella fracture Implants: Styrker 4.0 partially threaded canulated screws x2 Surgeon: Wyatt Tobias MD Anesthesia: GETA and regional Was an Cloud Security Architect used for this Procedure?: No Estimated blood loss (mL): 2 Tourniquet time (min): 35 IV fluids (mL): 500 Pathology: none sent Condition: stable Disposition: PACU
[2023-05-21] MEDS: fentaNYL citrate/PF 100 MCG/2 ML VIAL 25 MCG IVPUSH ×4 (15:42→15:57)
--- NOTE | 2023-05-28 16:02 | P.OP_ITS ---
Operative Note Operative Note Date of Service: 05/21/23 Narrative: Date of Service: 05/21/23 Pre-op diagnosis: Right patella fracture Post-op diagnosis: same Procedure: ORIF right patella fracture Implants: Styrker 4.0 partially threaded canulated screws x2 Surgeon: Wyatt Tobias MD Anesthesia: GETA and regional Was an Visual Communications Instructor used for this Procedure?: No Estimated blood loss (mL): 2 Tourniquet time (min): 35 IV fluids (mL): 500 Pathology: none sent Condition: stable Disposition: PACU Patient was brought to the operating room and placed supine on the fracture table. She was prepped and draped in standard sterile fashion and a time out was called to identify proper site, proper procedure and IV antibiotics per weight were administered. I begna by examining the fracture under radiography. There was a transverse fracture with moderate displacement involving the articular surface. I then began by making a small incision over the distal pole of the incision (3 cm). I made two stab incisions over the proximal ple of the patella and a sharp tenaculum was used to reduce the fracture. Once I was satisfied with the extent of reduction two k wires were passed in parallel from distal patella proximally. Biplanar fluoro was used to conform position and the k-wires were overdrilled and cannulated screws were passed across the fracture. I was satisfied with the rediographic reduction and position of the hardware. I then irrigated copiously and closed with absorbable sutures and skin zach. The patient was then placed in sterile dressing and a knee immobilizer locked in extension. She was brought to the recovery room in stable condition. There were no known complications.
== END 2023-05-21 16:30 | disposition home or self-care (01) ==
LOC: HO.SSS 10:36
PROVIDERS: Nurse Practitioner; PCP Internal Medicine; Visit Provider Orthopaedic Surgery
PROC: (CPT 27524; principal; 2023-05-21 14:20)
DX: S82.031A Displaced transverse fracture of right patella, initial encounter for closed fracture (principal); W01.0XXA Fall on same level from slipping, tripping and stumbling without subsequent striking against object, initial encounter; Y93.9 Activity, unspecified; Y92.9 Unspecified place or not applicable; Y99.9 Unspecified external cause status; M32.9 Systemic lupus erythematosus, unspecified; G24.8 Other dystonia; I25.2 Old myocardial infarction; I25.10 Atherosclerotic heart disease of native coronary artery without angina pectoris; Z95.5 Presence of coronary angioplasty implant and graft; Z79.51 Long term (current) use of inhaled steroids; Z79.899 Other long term (current) drug therapy; Z88.0 Allergy status to penicillin; Z88.2 Allergy status to sulfonamides; Z88.5 Allergy status to narcotic agent; Z88.8 Allergy status to other drugs, medicaments and biological substances; Z98.890 Other specified postprocedural states; Z87.891 Personal history of nicotine dependence
CPT/HCPCS: 27524; 36415; 80051; 93005; C1713; J0131; J2250; J2405; J2704; J2795; J3010; J3370

== ENCOUNTER → 2023-05-21 10:33 | Outpatient (BNV) | payer OTHER, SELFPAY ==
[2023-05-08 09:40] VITALS: BP 114/62; BMI 21.8
== END ==
PROVIDERS: PCP Internal Medicine; Visit Provider Orthopaedic Surgery
DX: S82.031A Displaced transverse fracture of right patella, initial encounter for closed fracture (principal)
CPT/HCPCS: 27524

== ENCOUNTER → 2023-05-21 11:01 | Outpatient (BNV) | payer OTHER, SELFPAY ==
[2023-05-08 09:40] VITALS: BP 114/62; BMI 21.8
== END ==
PROVIDERS: PCP Internal Medicine; Visit Provider Internal Medicine
DX: Z01.810 Encounter for preprocedural cardiovascular examination (principal)
CPT/HCPCS: 93010

== ENCOUNTER 2023-05-30 14:29 | Outpatient (REF) | payer OTHER, SELFPAY ==
[2023-05-08 09:40] VITALS: BP 114/62; BMI 21.8
--- NOTE | ~2023-05-30 | XR_ITS ---
EXAMINATION: XR KNEE, RIGHT CLINICAL INFORMATION: Pain. COMPARISON: Prior examinations, most recently 05/21/2023. TECHNIQUE: AP and lateral views of the right knee. FINDINGS: Bony alignment and mineralization are normal. The lateral, medial and patellofemoral joint space compartments are well-maintained. There is a patella osvaldo configuration. The transverse fracture is noted at the lower pole of the patella in stable alignment. There is stable for clinically oriented fixator screws applied to the patella. No significant joint effusion is seen. There is no foreign body. XR/XR knee RT 2V IMPRESSION: 1. There is stable alignment of a mildly displaced transverse fracture of the lower patella status-post ORIF. No hardware failure or loosening is seen. 2. There is a patella osvaldo configuration. 3. There is mild osteoarthritic change of the medial joint space compartment.
== END 2023-05-30 14:30 | disposition home or self-care (01) ==
LOC: HO.HOSX 14:29
PROVIDERS: PCP Internal Medicine; Visit Provider Physician Assistant
DX: S82.031D Displaced transverse fracture of right patella, subsequent encounter for closed fracture with routine healing (principal)
CPT/HCPCS: 73560; 99212

== ENCOUNTER 2023-05-30 14:29 | Outpatient (AMB) | payer OTHER, SELFPAY ==
[2023-05-08 09:40] VITALS: BP 114/62; BMI 21.8
[2023-05-30 14:46] VITALS: BMI 23.8
--- NOTE | 2023-05-30 14:46 | A.OFFVIS_ITS ---
Intake Vital Signs 05/30/23 14:46 Height 5 ft 2 in Weight 130 lb BMI 23.8 Intake Visit Reasons: PO RT patella ORIF 05/21/23 NE Intake Note: Kasandra 67 yr old female presents today for her P/O visit for her right patella ORIF from [facility] 05/21/23. States she is doing well and Allergies Penicillins [PENICILLINS] Allergy (Unknown, Verified 05/21/23 11:30) STOPS BREATHING shellfish derived [SHELLFISH DERIVED] Allergy (Unknown, Verified 05/21/23 11:30) SWELLING/THROAT CLOSES Sulfa (Sulfonamide Antibiotics) [SULFA (SULFONAMIDE ANTIBIOTICS)] Allergy (Unknown, Verified 05/21/23 11:30) THROAT CLOSES aripiprazole [From ABILIFY] Adverse Reaction (Severe, Verified 05/21/23 11:30) dystonic reaction morphine Adverse Reaction (Intermediate, Verified 05/21/23 11:30) Rash sulfa Allergy (Unknown, Uncoded 05/21/23 11:30) unknown HPI PO RT patella ORIF 05/21/23 NE HPI Details 67-year-old female who returns to the [facility] today with an senior medical director for post-op right patella ORIF, 05/21/[address] Tobias. She states she has improvement in her pain and is doing well overall. She has no other concerns today. [facility] Medical History (Updated 06/03/23 @ 20:27 by Wesly Hernandez PA-C) Stable angina NSTEMI (non-ST elevated myocardial infarction) CAD (coronary artery disease) Lupus Surgical History (Updated 06/03/23 @ 20:26 by Wesly Hernandez PA-C) S/P ORIF (open reduction internal fixation) fracture S/P coronary artery stent placement Status post cardiac catheterization History of partial mastectomy of left breast History of appendectomy Hx of cardiac cath Family History Mother Enlarged heart CAD (coronary artery disease) Sister Heart attack Brother Throat cancer Brother Lung cancer Social History (Updated 05/10/23 @ 11:03 by Juliana Rajput Shmuel) Alcohol intake: current Alcohol intake frequency: does not drink Patient Tobacco Use Status: Former Tobacco user Quit Date: 6 months ago Tobacco use type: Cigarette Years Smoked: 25 +/- Current occupational status: retired Current occupation: left hand dominant Review of Systems Const All systems reviewed & are unremarkable except as noted in HPI and below Physical Exam Vital Signs: BMI result Body Mass Index 23.8 Extrem Other: Right knee: Incision clean, dry and intact. No erythema or drainage. She has good quad activation. NVI. Results Reviewed Results Reviewed: Xrays were obtained in the office today and personally reviewed by me of the right knee show intact hardware with stable fracture Assessment & Plan Assessment & Plan (1) Patellar fracture: Code(s): S82.009A - Unspecified fracture of unspecified patella, initial encounter for closed fracture Qualifiers: Encounter type: subsequent encounter Fracture alignment: displaced Fracture morphology: transverse Fracture type: closed Laterality: right Fracture healing: with routine healing Qualified Code(s): S82.031D - Displaced transverse fracture of right patella, subsequent encounter for closed fracture with routine healing (2) S/P ORIF (open reduction internal fixation) fracture: Comment: orif patella Code(s): Z98.890 - Other specified postprocedural states; Z87.81 - Personal history of (healed) traumatic fracture Plan She was transitioned to an ACL immobilization brace locked in extension. She should wear this at all times. She can remove the brace for hygiene. I recommend no bending for the next 5 weeks as the fracture needs to be healed, at which point I will see her back for x-rays, sooner if needed. Orders: Orders XR knee RT 2V 05/30/23 M25.569 - Pain in unspecified knee Patient Instructions: Scribed for Wesly Hernandez PA-C, by Anjel uRsso medical delivery driver, on 05/30/2023 at 2:45 PM EST. IWesly PA-C, have personally reviewed and agree with the information entered by the scribe. Coding Level of Care Code Global (69579) Diagnoses Closed displaced transverse fracture of right patella with routine healing, subsequent encounter S82.031D Encounter type: subsequent encounter Fracture alignment: displaced Fracture morphology: transverse Fracture type: closed Laterality: right Fracture healing: with routine healing S/P ORIF (open reduction internal fixation) fracture Z98.890; Z87.81
== END 2023-05-30 15:42 | disposition home or self-care (01) ==
PROVIDERS: PCP Internal Medicine; Visit Provider Physician Assistant
DX: S82.031D Displaced transverse fracture of right patella, subsequent encounter for closed fracture with routine healing (principal); Z98.890 Other specified postprocedural states; Z87.81 Personal history of (healed) traumatic fracture
CPT/HCPCS: 99024

== ENCOUNTER 2023-06-10 13:54 | Outpatient (AMB) | payer OTHER, SELFPAY ==
[2023-05-08 09:40] VITALS: BP 114/62; BMI 21.8
[2023-06-10 14:01] VITALS: BP 110/62; PULSE 92; BMI 23.4
--- NOTE | 2023-06-10 14:01 | MHC.OFFVIS ---
Intake Vital Signs 06/10/23 14:01 Height 5 ft 2 in Weight 128 lb BMI 23.4 BP 110/62 Blood Pressure Location Lt brachial Position Sitting Pulse 92 Pulse Source Pulse Oximeter Intake Visit Reasons: 3 month FU Intake Note: pt its here for a 3 month f/up, pt states that she its doing fine. she just had knee surgery and have some pain. Ob Gyn Physician Assistant Required: Yes Ob Gyn Physician Assistant Name: [id number] Accompanied by: Significant Other Allergies Penicillins [PENICILLINS] Allergy (Unknown, Verified 05/21/23 11:30) STOPS BREATHING shellfish derived [SHELLFISH DERIVED] Allergy (Unknown, Verified 05/21/23 11:30) SWELLING/THROAT CLOSES Sulfa (Sulfonamide Antibiotics) [SULFA (SULFONAMIDE ANTIBIOTICS)] Allergy (Unknown, Verified 05/21/23 11:30) THROAT CLOSES aripiprazole [From ABILIFY] Adverse Reaction (Severe, Verified 05/21/23 11:30) dystonic reaction morphine Adverse Reaction (Intermediate, Verified 05/21/23 11:30) Rash sulfa Allergy (Unknown, Uncoded 05/21/23 11:30) unknown Medication List - Last Reconciled 06/10/23 by Jewel Willis MD acetaminophen 650 mg (2 x 325 mg) PO Q6H PRN 30 days albuterol sulfate 1 - 2 vials inhalation Q4H PRN albuterol sulfate 90 mcg/actuation 2 puffs inhalation Q4H PRN aspirin 81 mg PO DAILY 90 days atorvastatin 80 mg PO DAILY 90 days cholecalciferol (vitamin D3) 50 mcg PO DAILY cyclobenzaprine 1 tab PO BID PRN diphenhydramine HCl (Banophen) 1 cap PO Q12H PRN duloxetine (Cymbalta) 60 mg PO BEDTIME duloxetine (Cymbalta) 30 mg PO QAM fluticasone furoate-vilanterol 100-25 mcg/dose (Breo Ellipta) 1 ea inhalation DAILY fluticasone propionate 50 mcg/actuation 2 sprays intranasal DAILY folic acid 1 tab PO DAILY meclizine 25 mg PO DAILY PRN olanzapine 7.5 mg PO BEDTIME omeprazole 40 mg PO DAILY oxycodone 5 mg PO Q4H PRN 7 days oxycodone 5 mg PO Q8H PRN propranolol 60 mg PO BID ticagrelor (Brilinta) 90 mg PO BID 90 days trazodone 1 - 2 tabs PO BEDTIME PRN walker As directed HPI HPI Comments History of Present Illness Details Pleasant 66-year-old female who is here for follow-up. She underwent cardiac catheterization in the past when she presented with NSTEMI. Cardiac catheterization shows severe mid right coronary artery and left anterior descending artery stenosis. We decided to treat the LAD with drug-eluting stent. subsequently she presented with chest pain again and was taken for cardiac catheterization and received drug-eluting stent to right coronary artery. This was in March 2021. She continues to smoke and was seen again for shortness of breath chest discomfort. She underwent stress testing when she was taken for cardiac catheterization. This showed severe InStent restenoses in the right coronary artery. This was treated with intravascular ultrasound guidance with drug-eluting stents. She is back for follow-up and is denying any significant chest discomfort. She is saying her breathing is little better but she still has shortness of breath which is mostly due to underlying COPD. We discussed about smoking cessation again. She is saying she is more energetic since she had the right coronary artery stenting. She returns for follow-up and is complaining of fatigue. She has no other symptoms currently. She is saying she has stop smoking. Taking medications regularly. 06/10/2023: She returns for follow-up. She has her right leg in a brace currently. She said she fell and fractured her leg and underwent surgery. She is doing well at this point. No chest discomfort shortness of breath. Since November she has stop smoking which I have congratulated her about. She is on dual antiplatelet therapy currently due to RCA stenting. [facility] Medical History (Updated 06/03/23 @ 20:27 by Wesly Hernandez PA-C) Stable angina NSTEMI (non-ST elevated myocardial infarction) CAD (coronary artery disease) Lupus Surgical History (Updated 06/10/23 @ 14:07 by Nemo Perez MA) H/O right knee surgery S/P ORIF (open reduction internal fixation) fracture S/P coronary artery stent placement Status post cardiac catheterization History of partial mastectomy of left breast History of appendectomy Hx of cardiac cath Family History Mother Enlarged heart CAD (coronary artery disease) Sister Heart attack Brother Throat cancer Brother Lung cancer Social History Alcohol intake: current Alcohol intake frequency: does not drink Patient Tobacco Use Status: Former Tobacco user Quit Date: 6 months ago Tobacco use type: Cigarette Years Smoked: 25 +/- Current occupational status: retired Current occupation: left hand dominant Physical Exam Vital Signs: Last Vital Signs Pulse 92 06/10/23 14:01 BP 110/62 06/10/23 14:01 BMI result Body Mass Index 23.4 GENERAL APPEARANCE: in no acute distress, pleasant. NECK: no carotid bruit, no jugular venous distention. SKIN: no suspicious lesions, warm and dry. HEART: no murmurs, regular rate and rhythm. LUNGS: clear to auscultation bilaterally. ABDOMEN: soft, nontender. EXTREMITIES: no edema. PERIPHERAL PULSES: equal. NEUROLOGIC: No gross deficits, AAO X 3 Assessment & Plan Assessment & Plan (1) S/P coronary artery stent placement: Code(s): Z95.5 - Presence of coronary angioplasty implant and graft Plan Pleasant 67 year female who is here for follow-up. She has known history of coronary disease with previous RCA PCI followed by a 2nd PCI. She has been doing well since then. No chest discomfort shortness of breath. She has stopped smoking. Continue medications as before. Overall clinically stable. See us back in 4 months. Thank you for allowing me to participate in the care of your patient. Please feel free to contact me if you have any questions. Coding Level of Care Code Est Pt Level 3 (68354) Diagnoses S/P coronary artery stent placement Z95.5
== END 2023-06-10 14:30 | disposition home or self-care (01) ==
PROVIDERS: PCP Internal Medicine; Visit Provider Internal Medicine Cardiovascular Disease
DX: Z95.5 Presence of coronary angioplasty implant and graft (principal)
CPT/HCPCS: 99213

== ENCOUNTER → 2023-06-10 13:54 | Outpatient (BNVA) | payer OTHER, SELFPAY ==
[2023-05-08 09:40] VITALS: BP 114/62; BMI 21.8
== END ==
PROVIDERS: PCP Internal Medicine; Visit Provider Internal Medicine Cardiovascular Disease
DX: Z95.5 Presence of coronary angioplasty implant and graft (principal)
CPT/HCPCS: 99212

== ENCOUNTER 2023-07-01 09:12 | Outpatient (AMB) | payer OTHER, SELFPAY ==
[2023-05-08 09:40] VITALS: BP 114/62; BMI 21.8
--- NOTE | 2023-07-01 09:20 | MHC.OFFVIS ---
Intake Vital Signs 07/01/23 09:21 Height 5 ft 2 in Weight 128 lb BMI 23.4 Intake Visit Reasons: PO RT patella ORIF 05/21/23 NE Intake Note: Kasandra 67 year old female presents today for a post operative right visit of right patella ORIF from [facility] 05/21/23. Patient reports that at night she gets sharp shooting pain that wakes her up. Currently, she is feeling well with a little bit of soreness. Allergies Penicillins [PENICILLINS] Allergy (Unknown, Verified 07/01/23 09:29) STOPS BREATHING shellfish derived [SHELLFISH DERIVED] Allergy (Unknown, Verified 07/01/23 09:29) SWELLING/THROAT CLOSES Sulfa (Sulfonamide Antibiotics) [SULFA (SULFONAMIDE ANTIBIOTICS)] Allergy (Unknown, Verified 07/01/23 09:29) THROAT CLOSES aripiprazole [From ABILIFY] Adverse Reaction (Severe, Verified 07/01/23 09:29) dystonic reaction morphine Adverse Reaction (Intermediate, Verified 07/01/23 09:29) Rash sulfa Allergy (Unknown, Uncoded 05/21/23 11:30) unknown HPI PO RT patella ORIF 05/21/23 NE HPI Details 67-year-old female who returns to the office today with an director operations broadcast for post-op right patella ORIF, 05/21/[address] Tobias. She states she has a sharp shooting pain which wakes her up at night. She also c/o mild soreness in her right knee. She is doing well otherwise and has no other concerns today. [facility] Medical History (Updated 06/03/23 @ 20:27 by Wesly Hernandez PA-C) Stable angina NSTEMI (non-ST elevated myocardial infarction) CAD (coronary artery disease) Lupus Surgical History (Updated 06/10/23 @ 14:07 by Nemo Perez MA) H/O right knee surgery S/P ORIF (open reduction internal fixation) fracture S/P coronary artery stent placement Status post cardiac catheterization History of partial mastectomy of left breast History of appendectomy Hx of cardiac cath Family History Mother Enlarged heart CAD (coronary artery disease) Sister Heart attack Brother Throat cancer Brother Lung cancer Social History Alcohol intake: current Alcohol intake frequency: does not drink Patient Tobacco Use Status: Former Tobacco user Quit Date: 6 months ago Tobacco use type: Cigarette Years Smoked: 25 +/- Current occupational status: retired Current occupation: left hand dominant Review of Systems Const All systems reviewed & are unremarkable except as noted in HPI and below Physical Exam Vital Signs: BMI result Body Mass Index 23.4 Extrem Other: Right knee: Incision well healed. No erythema or drainage. She can full extend however she can flex at 15 degrees only. She can perform a SLR, NVI. Results Reviewed Results Reviewed: Xrays were obtained in the office today and personally reviewed by me of the right knee show intact hardware with stable fracture and interval healing Assessment & Plan Assessment & Plan (1) Patellar fracture: Code(s): S82.009A - Unspecified fracture of unspecified patella, initial encounter for closed fracture Qualifiers: Encounter type: subsequent encounter Fracture alignment: displaced Fracture healing: with routine healing Fracture morphology: transverse Fracture type: closed Laterality: right Qualified Code(s): S82.031D - Displaced transverse fracture of right patella, subsequent encounter for closed fracture with routine healing (2) S/P ORIF (open reduction internal fixation) fracture: Comment: orif patella Code(s): Z98.890 - Other specified postprocedural states; Z87.81 - Personal history of (healed) traumatic fracture Plan She will begin a course of physical therapy to work on gentle ROM, gait training and isometric quad exercises. She will work on increasing her ROM by 15 degrees each week and use the brace for support. She will see me back in 6 weeks with new x-rays, sooner if needed. Orders: Orders XR knee RT 2V Today M25.569 - Pain in unspecified knee PT Evaluation and Treatment Today Z87.81 - Personal history of (healed) traumatic fracture, Z98.890 - Other specified postprocedural states Patient Instructions: Scribed for Wesly Hernandez PA-C, by Anjel Russo medical dosimetrist, on 07/01/2023 at 9:30 AM EST. Wesly Clark PA-C, have personally reviewed and agree with the information entered by the scribe. Coding Level of Care Code Global (15978) Diagnoses Closed displaced transverse fracture of right patella with routine healing, subsequent encounter S82.031D Encounter type: subsequent encounter Fracture alignment: displaced Fracture healing: with routine healing Fracture morphology: transverse Fracture type: closed Laterality: right S/P ORIF (open reduction internal fixation) fracture Z98.890; Z87.81
[2023-07-01 09:21] VITALS: BMI 23.4
== END 2023-07-01 10:14 | disposition home or self-care (01) ==
PROVIDERS: PCP Internal Medicine; Visit Provider Physician Assistant
DX: S82.031D Displaced transverse fracture of right patella, subsequent encounter for closed fracture with routine healing (principal); Z98.890 Other specified postprocedural states; Z87.81 Personal history of (healed) traumatic fracture
CPT/HCPCS: 99024

== ENCOUNTER 2023-07-01 16:53 | Outpatient (REF) | payer OTHER, SELFPAY ==
--- NOTE | ~2023-07-01 | XR_ITS ---
EXAMINATION: XR KNEE, RIGHT CLINICAL INFORMATION: Pain. COMPARISON: Radiograph right knee 05/30/2023. TECHNIQUE: Two views of the right knee. FINDINGS: Redemonstration of 2 vertically oriented partially cannulated screws overlying the patella, no evidence of hardware fracture or complication. Stable appearance of mildly displaced transverse fracture in the lower pole of the patella. Again noted patella osvaldo. No acute fracture or subluxation. Unchanged [id number] joint space narrowing of the medial and patellofemoral compartments. No joint effusion. Scattered vascular calcifications. XR/XR knee RT 2V IMPRESSION: 1. Stable appearance of a mildly displaced transverse fracture in the lower pole of the patella. 2. No evidence of hardware fracture or complication. 3. Unchanged patella osvaldo.
[2023-07-01 10:03] VITALS: BP 114/62; BMI 21.8
== END 2023-07-01 16:54 | disposition home or self-care (01) ==
LOC: HO.HOSX 16:53
PROVIDERS: Visit Provider Physician Assistant
DX: S82.031D Displaced transverse fracture of right patella, subsequent encounter for closed fracture with routine healing (principal); M25.561 Pain in right knee; X58.XXXD Exposure to other specified factors, subsequent encounter; Z98.890 Other specified postprocedural states
CPT/HCPCS: 73560; 99212

== ENCOUNTER 2023-08-09 09:11 | Outpatient (REF) | payer OTHER, SELFPAY | END 2023-08-09 09:12 | disposition home or self-care (01) | LOC: HO.HOSX 09:11 | PROVIDERS: Visit Provider Physician Assistant | DX: Z13.89 Encounter for screening for other disorder (principal) ==

== ENCOUNTER 2023-08-21 11:27 | Outpatient (AMB) | payer OTHER, SELFPAY ==
[2023-08-15 15:05] VITALS: BP 114/62; BMI 21.8
--- NOTE | 2023-08-21 11:37 | A.OFFVIS_ITS ---
Vital Signs 08/21/23 11:45 Height 5 ft 2 in Weight 128 lb BMI 23.4 Intake Visit Reasons: OV RT patella ORIF 05/21/23 NE Intake Note: Kasandra 67 year old female presents today for a post operative right visit of right patella ORIF from [facility] 05/21/23. Patient reports she is feeling a bit sore since she was working with P.T. yesterday. She finds that P.T. is helping her gain her strength. Allergies Penicillins [PENICILLINS] Allergy (Unknown, Verified 08/21/23 11:37) STOPS BREATHING shellfish derived [SHELLFISH DERIVED] Allergy (Unknown, Verified 08/21/23 11:37) SWELLING/THROAT CLOSES Sulfa (Sulfonamide Antibiotics) [SULFA (SULFONAMIDE ANTIBIOTICS)] Allergy (Unknown, Verified 08/21/23 11:37) THROAT CLOSES aripiprazole [From ABILIFY] Adverse Reaction (Severe, Verified 08/21/23 11:37) dystonic reaction morphine Adverse Reaction (Intermediate, Verified 08/21/23 11:37) Rash sulfa Allergy (Unknown, Uncoded 05/21/23 11:30) unknown HPI HPI OV RT patella ORIF 05/21/23 NE: Details: 67-year-old female returns to the office today status post ORIF of the right patella on May of [address] Tobias. She continues to work with physical therapy and is improving her daily activities. She has mild discomfort with physical therapy but otherwise she is doing well. [facility] Medical History (Updated 06/03/23 @ 20:27 by Wesly Hernandez PA-C) Stable angina NSTEMI (non-ST elevated myocardial infarction) CAD (coronary artery disease) Lupus Surgical History (Updated 06/10/23 @ 14:07 by Nemo Perez CMA) H/O right knee surgery S/P ORIF (open reduction internal fixation) fracture S/P coronary artery stent placement Status post cardiac catheterization History of partial mastectomy of left breast History of appendectomy Hx of cardiac cath Family History Mother Enlarged heart CAD (coronary artery disease) Sister Heart attack Brother Throat cancer Brother Lung cancer Social History (Reviewed 08/21/23 @ 11:37 by Malena Stephens Alcohol intake: current Alcohol intake frequency: does not drink Patient Tobacco Use Status: Former Tobacco user Quit Date: 6 months ago Tobacco use type: Cigarette Years Smoked: 25 +/- Current occupational status: retired Current occupation: left hand dominant Review of Systems Const All systems reviewed & are unremarkable except as noted in HPI and below Physical Exam Vital Signs: BMI result Body Mass Index 23.4 Extrem Other: Right knee: Incision well healed. No erythema or drainage. Range of motion 0- 115 degrees. She can perform a SLR, NVI. Results Reviewed Results Reviewed: Xrays were obtained in the office today and personally reviewed by me of the right knee show intact hardware with stable fracture and interval healing Assessment & Plan Assessment & Plan (1) S/P ORIF (open reduction internal fixation) fracture: Comment: orif patella Code(s): Z98.890 - Other specified postprocedural states; Z87.81 - Personal history of (healed) traumatic fracture Category: Surgical Plan: She will continue to work with physical therapy improving her quad strength and ADLs. She can discontinue use of the brace. She requested a refill of oxycodone which I declined and recommend she use [id number] anti-infla mmatories and Tylenol for discomfort. If she develops any problems or new concerns she will contact our office otherwise follow up as needed. Orders: Orders XR knee RT 2V Today M25.569 - Pain in unspecified knee Coding Level of Care Code Est Pt Level 3 (49856) Diagnoses S/P ORIF (open reduction internal fixation) fracture Z98.890; Z87.81
[2023-08-21 11:45] VITALS: BMI 23.4
== END 2023-08-21 12:23 | disposition home or self-care (01) ==
PROVIDERS: PCP Internal Medicine; Visit Provider Physician Assistant
DX: S82.031D Displaced transverse fracture of right patella, subsequent encounter for closed fracture with routine healing (principal); Z87.81 Personal history of (healed) traumatic fracture
CPT/HCPCS: 99213

== ENCOUNTER 2023-08-21 16:04 | Outpatient (REF) | payer OTHER, SELFPAY ==
[2023-08-15 15:05] VITALS: BP 114/62; BMI 21.8
--- NOTE | ~2023-08-21 | XR_ITS ---
EXAMINATION: XR KNEE, RIGHT CLINICAL INFORMATION: Pain in unspecified knee COMPARISON: Right knee 07/01/2023 TECHNIQUE: AP and lateral views of the right knee. FINDINGS: Again seen are 2 vertically oriented partially cannulated screws overlying the patella. There is no evidence of hardware fracture or complication. Stable appearing is a mildly displaced transverse fracture in the lower pole of the patella. Again noted is patella osvaldo. Small joint effusion. Unchanged mild to moderate joint space narrowing of the medial and patellofemoral joint compartments. Scattered vascular calcifications. XR/XR knee RT 2V IMPRESSION: Stable appearance of a mildly displaced transverse fracture in the lower pole of the patella. No evidence of hardware fracture or complication. Unchanged patella alt.
== END 2023-08-21 16:05 | disposition home or self-care (01) ==
LOC: HO.HOSX 16:04
PROVIDERS: Visit Provider Physician Assistant
DX: M25.561 Pain in right knee (principal); Z98.890 Other specified postprocedural states; Z87.81 Personal history of (healed) traumatic fracture
CPT/HCPCS: 73560; 99212

== ENCOUNTER 2023-09-12 09:00 | Outpatient (RCR) | payer OTHER, SELFPAY ==
--- NOTE | 2023-08-12 13:29 | MHC.PT.EP ---
[facility] [place] Office [place] Office [place] Office [address] [phone] F: [phone] F: [phone] F: [phone] F: [phone] Physical Therapy Plan of Care Date of Evaluation: 08/12/23 Date of Surgery: 05/21/23 Diagnosis: s/p RIGHT patella ORIF (DOS 05/21/23) (RS) Assessment: Patient is a pleasant sri lankan speaking 67 y.o. female who is referred to PT by Wesly Hernandez PA-C with Dx of s/p RIGHT patella ORIF (DOS 05/21/23). Patient impairments include pain, swelling, limited knee ROM, weakness in R LE with atrophy, antalgic gait. 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 Frequency and Duration: The patient will be seen 2x/week for 4 weeks Short Term Goals: 2 weeks Patient demonstrates consistency and independence with HEP to self manage symptoms. Patient is able to ambulate with LRAD with unlocked brace with control 100 ft. Jail Goals: 4 weeks Patient presents with increased R knee flexion 115 degrees to be able to bend to low chair. Patient presents with increased R knee quad strength 4/5 to be able to ascend/descend reciprocal stairs for community use. Treatment Plan: Modalities to reduce pain, spasms and effusion. Manual therapy to restore motion and function. Therapeutic exercise to improve strength and flexibility. Neuromuscular re-education for posture and balance. Therapeutic activities to return to functional activities of daily living. Electronically signed by: Nury Tian, PT, DPT Please sign and return to therapist. Thank you for your referral.
--- NOTE | 2023-10-15 11:51 | MHC.PT.DC ---
[facility] [place] Office [place] Office [place] Office [address] Annalisa Kerns [address] [phone] F: [phone] F: [phone] F: [phone] F: [phone] Physical Therapy Discharge Report Diagnosis: s/p RIGHT patella ORIF (DOS 05/21/23) (RS) Date of Surgery: 05/21/23 Date of Evaluation: 08/12/23 Date of Discharge: 10/15/23 Treatments to Date: 7 Cancellations to Date: 1 No Shows to Date: 5 Discharge Status: Discharge Summary: Kasandra is discharged from PT as she did not show to her last scheduled visits and is therefore discharged for non-compliance. During her last session on 09/12/23 the assessment reads, Melba is making steady progress in her mobility and strength in her RIGHT knee s/p patellar ORIF, especially considering she started therapy late postsurgically. She continues to need more PT to regain more ROM and build functional strength. Recommend continued PT 2x/week for 4 weeks. Electronically signed by: Nury Tian, PT, DPT Please sign and return to therapist. Thank you for your referral.
== END 2023-10-15 11:51 | disposition home or self-care (01) ==
LOC: HO.PT 09:00
PROVIDERS: PCP Internal Medicine; Visit Provider Physician Assistant
DX: Z98.890 Other specified postprocedural states (principal); Z87.81 Personal history of (healed) traumatic fracture
CPT/HCPCS: 97110; 97162; 97530

== ENCOUNTER 2023-09-27 07:25 | Outpatient (REF) | payer OTHER, SELFPAY ==
[2023-08-15 15:05] VITALS: BP 114/62; BMI 21.8
--- NOTE | ~2023-09-27 | XR_ITS ---
EXAMINATION: XR AP AND LATERAL VIEWS OF THE RIGHT KNEE XR PATELLA VIEW OF THE RIGHT KNEE CLINICAL INFORMATION: Pain in the right knee. COMPARISON: None available. TECHNIQUE: AP and lateral views of the right knee. Single patella view. FINDINGS: Postop changes with screws in place unchanged crossing the previously noted patellar fracture. The alignment is unchanged and appears anatomic or near-anatomic. There is some bone density across the fracture, which is unchanged compared with the recent exam, but increased compared to the initial postoperative exam, indicating at least partial healing of the fracture. There is a trace joint effusion. There is mild osteoarthritis of the medial compartment, unchanged. XR/XR knee RT 2V IMPRESSION: 1. Healing patellar fracture, unchanged. 2. Trace joint effusion. 3. Mild osteoarthritis of the knee.
--- NOTE | ~2023-09-27 | XR_ITS ---
EXAMINATION: XR AP AND LATERAL VIEWS OF THE RIGHT KNEE XR PATELLA VIEW OF THE RIGHT KNEE CLINICAL INFORMATION: Pain in the right knee. COMPARISON: None available. TECHNIQUE: AP and lateral views of the right knee. Single patella view. FINDINGS: Postop changes with screws in place unchanged crossing the previously noted patellar fracture. The alignment is unchanged and appears anatomic or near-anatomic. There is some bone density across the fracture, which is unchanged compared with the recent exam, but increased compared to the initial postoperative exam, indicating at least partial healing of the fracture. There is a trace joint effusion. There is mild osteoarthritis of the medial compartment, unchanged. XR/XR knee RT 1V IMPRESSION: 1. Healing patellar fracture, unchanged. 2. Trace joint effusion. 3. Mild osteoarthritis of the knee.
== END 2023-09-27 07:26 | disposition home or self-care (01) ==
LOC: HO.HOSX 07:25
PROVIDERS: Visit Provider Physician Assistant
DX: M17.11 Unilateral primary osteoarthritis, right knee (principal); Z87.81 Personal history of (healed) traumatic fracture; Z98.890 Other specified postprocedural states
CPT/HCPCS: 20610; 73560; 99212; J1010

== ENCOUNTER 2023-09-27 09:01 | Outpatient (AMB) | payer OTHER, SELFPAY ==
[2023-08-15 15:05] VITALS: BP 114/62; BMI 21.8
--- NOTE | 2023-09-27 09:20 | A.OFFVIS_ITS ---
Vital Signs 09/27/23 09:34 Height 5 ft 2 in Weight 128 lb BMI 23.4 Handedness Left Intake Visit Reasons: O/V S/P RT patellar ORIF 05/21/23 Intake Note: Kasandra is a 68 year old left hand dominant female who presents today for a follow up visit S/P right patellar ORIF 05/21/23. Patient reports she is having continued pain in the anterior aspect of her right knee with occasional cracking and popping. She expresses she continues to do physical therapy. Working on the bicycle with PT caused more pain in her right knee. She has disconnected the use of her brace since her last visit. She would like to see her xrays. 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: [id number] Allergies Penicillins [PENICILLINS] Allergy (Unknown, Verified 09/27/23 09:25) STOPS BREATHING shellfish derived [SHELLFISH DERIVED] Allergy (Unknown, Verified 09/27/23 09:25) SWELLING/THROAT CLOSES Sulfa (Sulfonamide Antibiotics) [SULFA (SULFONAMIDE ANTIBIOTICS)] Allergy (Unknown, Verified 09/27/23 09:25) THROAT CLOSES aripiprazole [From ABILIFY] Adverse Reaction (Severe, Verified 09/27/23 09:25) dystonic reaction morphine Adverse Reaction (Intermediate, Verified 09/27/23 09:25) Rash sulfa Allergy (Unknown, Uncoded 05/21/23 11:30) unknown HPI HPI O/V S/P RT patellar ORIF 05/21/23: Details: 68-year-old left hand dominant female who returns to the office today with an court interpreter for a follow-up of right patellar ORIF, 05/21/23. She continues to have pain at the anterior aspect of her knee as well as occasional cracking and popping. She is working on physical therapy as instructed however working on bicycle caused her more pain in her knee. She has discontinued the use of her brace since the last visit. She has tried Tylenol without benefits. She does not have a history of diabetes. [facility] Medical History Stable angina NSTEMI (non-ST elevated myocardial infarction) CAD (coronary artery disease) Lupus Surgical History H/O right knee surgery S/P ORIF (open reduction internal fixation) fracture S/P coronary artery stent placement Status post cardiac catheterization History of partial mastectomy of left breast History of appendectomy Hx of cardiac cath Family History Mother Enlarged heart CAD (coronary artery disease) Sister Heart attack Brother Throat cancer Brother Lung cancer Social History Alcohol intake: current Alcohol intake frequency: does not drink Patient Tobacco Use Status: Former Tobacco user Tobacco use type: Cigarette Years Smoked: 25 +/- Current occupational status: retired Current occupation: left hand dominant Review of Systems Const All systems reviewed & are unremarkable except as noted in HPI and below Physical Exam Vital Signs: BMI result Body Mass Index 23.4 Extrem Other: Right knee: Skin intact, surgical scar well healed, no erythema or joint effusion. Tenderness along the medial joint line. Full ROM with crepitus. Negative Michael?s. No ligamentous laxity. NVI. ? Office Procedures Joint Injection/Drain Joint Injection/Drain Primary Site: right knee Prep: site was prepped using aseptic technique, ethochloride spray was applied and injection warnings given Injected: 80 mg of, DepoMedrol, with 8 mL of, 1% plain lidocaine and in the joint Approach Used: anterolateral Procedure: The patient tolerated the procedure well and there was some relief with the local anesthesia Coding 97217 - Glenohumeral/Tronchanteric Bursa/Intraarticular Procedure code (CPT) selection complete Results Reviewed Results Reviewed: Xrays were obtained in the office today and personally reviewed by me of the right knee show intact hardware with PF oa Assessment & Plan Assessment & Plan (1) S/P ORIF (open reduction internal fixation) fracture: Comment: orif patella Code(s): Z98.890 - Other specified postprocedural states; Z87.81 - Personal history of (healed) traumatic fracture Category: Surgical (2) Patellofemoral arthritis of right knee: Code(s): M17.11 - Unilateral primary osteoarthritis, right knee Category: Medical Plan We discussed options today, which include steroid injection. The patient did consent to move forward with the right knee injection, which was tolerated well. I recommended rest, ice, and elevation and OTC anti-inflammatories as needed for discomfort. If symptoms persist or worsen over the next 6-8 weeks, patient will contact the office, otherwise follow-up as needed. Orders: Orders XR knee RT 1V 09/27/23 M25.561 - Pain in right knee XR knee RT 2V 09/27/23 M25.569 - Pain in unspecified knee Patient Instructions: Scribed for Wesly Hernandez PA-C, by Anjel Russo senior medical billing specialist, on 09/27/2023 at 9:15 AM EST.? I, Wesly Hernandez PA-C, have personally reviewed and agree with the information entered by the scribe. Coding Level of Care Code Est Pt Level 3 (52382) Diagnoses S/P ORIF (open reduction internal fixation) fracture Z98.890; Z87.81 Patellofemoral arthritis of right knee M17.11 CPT Codes Coding - Joint 7: 27278 - Glenohumeral/Tronchanteric Bursa/Intraarticular ([id number])
[2023-09-27 09:34] VITALS: BMI 23.4
== END 2023-09-27 11:04 | disposition home or self-care (01) ==
PROVIDERS: PCP Internal Medicine; Visit Provider Physician Assistant
DX: M17.11 Unilateral primary osteoarthritis, right knee (principal); Z87.81 Personal history of (healed) traumatic fracture
CPT/HCPCS: 20610; 99213

== ENCOUNTER 2023-10-09 10:33 | Outpatient (AMB) | payer OTHER, SELFPAY ==
[2023-08-15 15:05] VITALS: BP 114/62; BMI 21.8
[2023-10-09 10:48] VITALS: BP 100/60; PULSE 75; BMI 24.5
--- NOTE | 2023-10-09 10:48 | A.OFFVIS_ITS ---
Vital Signs 10/09/23 10:48 Height 5 ft 2 in Weight 134 lb 0.657 oz BMI 24.5 BP 100/60 Blood Pressure Location Lt brachial Position Sitting Pulse 75 Pulse Source Pulse Oximeter Intake Visit Reasons: 4 mth f/up Intake Note: pt is here for her 4 mnth f/up/ pt state that she is doing fine. Residence Hall Director Required: Yes Accompanied by: Self / Same As Patient Allergies Penicillins [PENICILLINS] Allergy (Unknown, Verified 09/27/23 09:25) STOPS BREATHING shellfish derived [SHELLFISH DERIVED] Allergy (Unknown, Verified 09/27/23 09:25) SWELLING/THROAT CLOSES Sulfa (Sulfonamide Antibiotics) [SULFA (SULFONAMIDE ANTIBIOTICS)] Allergy (Unknown, Verified 09/27/23 09:25) THROAT CLOSES aripiprazole [From ABILIFY] Adverse Reaction (Severe, Verified 09/27/23 09:25) dystonic reaction morphine Adverse Reaction (Intermediate, Verified 09/27/23 09:25) Rash sulfa Allergy (Unknown, Uncoded 05/21/23 11:30) unknown Medication List - Last Reconciled 10/09/23 by Jewel Willis MD acetaminophen 650 mg (2 x 325 mg) PO Q6H PRN 30 days albuterol sulfate 1 - 2 vials inhalation Q4H PRN albuterol sulfate 90 mcg/actuation 2 puffs inhalation Q4H PRN aspirin 81 mg PO DAILY 90 days atorvastatin 80 mg PO DAILY 90 days cholecalciferol (vitamin D3) 50 mcg PO DAILY cyclobenzaprine 1 tab PO BID PRN diphenhydramine HCl (Banophen) 1 cap PO Q12H PRN duloxetine (Cymbalta) 60 mg PO BEDTIME duloxetine (Cymbalta) 30 mg PO QAM fluticasone furoate-vilanterol 100-25 mcg/dose (Breo Ellipta) 1 ea inhalation DAILY fluticasone propionate 50 mcg/actuation 2 sprays intranasal DAILY folic acid 1 tab PO DAILY meclizine 25 mg PO DAILY PRN olanzapine 7.5 mg PO BEDTIME omeprazole 40 mg PO DAILY propranolol 60 mg PO BID ticagrelor (Brilinta) 90 mg PO BID trazodone 1 - 2 tabs PO BEDTIME PRN walker As directed HPI Comments Details: Pleasant 68-year-old female who is here for follow-up. She underwent cardiac catheterization in the past when she presented with NSTEMI. Cardiac catheterization shows severe mid right coronary artery and left anterior descending artery stenosis. We decided to treat the LAD with drug- eluting stent. subsequently she presented with chest pain again and was taken for cardiac catheterization and received drug-eluting stent to right coronary artery. This was in March 2021. She continues to smoke and was seen again for shortness of breath chest discomfort. She underwent stress testing when she was taken for cardiac catheterization. This showed severe InStent restenoses in the right coronary artery. This was treated with intravascular ultrasound guidance with drug-eluting stents. She is back for follow-up and is denying any significant chest discomfort. She is saying her breathing is little better but she still has shortness of breath which is mostly due to underlying COPD. We discussed about smoking cessation again. She is saying she is more energetic since she had the right coronary artery stenting. She returns for follow-up and is complaining of fatigue. She has no other symptoms currently. She is saying she has stop smoking. Taking medications regularly. 06/10/2023: She returns for follow-up. She has her right leg in a brace currently. She said she fell and fractured her leg and underwent surgery. She is doing well at this point. No chest discomfort shortness of breath. Since November she has stop smoking which I have congratulated her about. She is on dual antiplatelet therapy currently due to RCA stenting. 10/09/2023: She returns for follow-up. She has been getting some anemia and seeing hematology. She is on aspirin and Brilinta. Her PCI was in 04/03/2022. No obvious bleeding. No chest discomfort shortness of breath. She has quit smoking in 12/02/2022 and since then breathing has been quite stable. [facility] Medical History (Updated 10/09/23 @ 11:20 by Jewel Willis MD) Stable angina NSTEMI (non-ST elevated myocardial infarction) CAD (coronary artery disease) Lupus Surgical History H/O right knee surgery S/P ORIF (open reduction internal fixation) fracture S/P coronary artery stent placement Status post cardiac catheterization History of partial mastectomy of left breast History of appendectomy Hx of cardiac cath Family History Mother Enlarged heart CAD (coronary artery disease) Sister Heart attack Brother Throat cancer Brother Lung cancer Social History (Reviewed 10/09/23 @ 10:55 by Nemo Perez [facility]) Alcohol intake: current Alcohol intake frequency: does not drink Patient Tobacco Use Status: Former Tobacco user Tobacco use type: Cigarette Years Smoked: 25 +/- Current occupational status: retired Current occupation: left hand dominant Review of Systems Const Denies chills, Denies fatigue, Denies fever(s), Denies frequent falls, Denies weakness, Denies weight gain and Denies weight loss ENT Denies dizziness Card Denies chest pain, Denies leg edema, Denies lightheadedness, Denies palpitations, Denies dyspnea and Denies dyspnea on exertion Resp Denies cough, Denies dyspnea and Denies dyspnea on exertion GI Denies hematochezia Musc Denies abnormal gait, Denies muscle weakness, Denies numbness, Denies radiating pain into limb and Denies tingling Neuro Denies abnormal gait, Denies dizziness, Denies frequent falls, Denies numbness, Denies tingling and Denies weakness Endo Denies fatigue and Denies palpitations Physical Exam Vital Signs: Last Vital Signs Pulse 75 10/09/23 10:48 BP 100/60 10/09/23 10:48 BMI result Body Mass Index 24.5 GENERAL APPEARANCE: in no acute distress, pleasant. NECK: no carotid bruit, no jugular venous distention. SKIN: no suspicious lesions, warm and dry. HEART: no murmurs, regular rate and rhythm. LUNGS: clear to auscultation bilaterally. ABDOMEN: soft, nontender. EXTREMITIES: no edema. PERIPHERAL PULSES: equal. NEUROLOGIC: No gross deficits, AAO X 3 Assessment & Plan Assessment & Plan (1) Stable angina: Code(s): I20.8 - Other forms of angina pectoris Category: Medical Plan Pleasant 68 year female who is here for follow-up. She has known history of coronary artery disease with previous RCA PCI. She has been on aspirin and Brilinta at this stage. She has been getting some anemia and is seeing Hematology. I reviewed her angiogram and cardiac catheterization was in 04/03/2022. I think given anemia we should stop the aspirin and Brilinta and just change her on Plavix monotherapy. Aspirin is more problematic with GI blood loss so would prefer Plavix over aspirin. She understand that she will be stopping aspirin and Brilinta both and just will be on Plavix 75 mg daily. Blood pressure is little low but she is asymptomatic. Thank you for allowing me to participate in the care of your patient. Please feel free to contact me if you have any questions. Medications: New clopidogrel 75 mg PO DAILY 90 tabs 3RF Discontinued aspirin Discontinued Reason: Doctor's Order 81 mg PO DAILY 90 days 90 tabs 3RF ticagrelor (Brilinta) Discontinued Reason: Doctor's Order 90 mg PO BID 180 tabs 3RF Coding Level of Care Code Est Pt Level 4 (01541) Diagnoses Stable angina I20.8
== END 2023-10-09 11:26 | disposition home or self-care (01) ==
PROVIDERS: PCP Internal Medicine; Visit Provider Internal Medicine Cardiovascular Disease
DX: I20.89 Other forms of angina pectoris (principal)
CPT/HCPCS: 99214

== ENCOUNTER → 2023-10-09 10:33 | Outpatient (BNVA) | payer OTHER, SELFPAY ==
[2023-08-15 15:05] VITALS: BP 114/62; BMI 21.8
== END ==
PROVIDERS: PCP Internal Medicine; Visit Provider Internal Medicine Cardiovascular Disease
DX: I20.89 Other forms of angina pectoris (principal); Z87.891 Personal history of nicotine dependence
CPT/HCPCS: 99212

== ENCOUNTER 2023-11-21 13:45 | Outpatient (AMB) | payer OTHER, SELFPAY ==
[2023-08-15 15:05] VITALS: BP 114/62; BMI 21.8
--- NOTE | 2023-11-21 13:52 | MHC.OFFVIS ---
Vital Signs 11/21/23 13:56 Height 5 ft 2 in Weight 134 lb BMI 24.5 Intake Visit Reasons: OV- RT knee pain Intake Note: Kasandra is a 68 year old left hand dominant female who presents today for a follow up visit S/P right patellar ORIF 05/21/23. Patient reports that the injection did not provide her with any relief. She continues to have ongoing pain at the anterior aspect of knee. 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 ID#[id number] Allergies Penicillins [PENICILLINS] Allergy (Unknown, Verified 11/21/23 13:53) STOPS BREATHING shellfish derived [SHELLFISH DERIVED] Allergy (Unknown, Verified 11/21/23 13:53) SWELLING/THROAT CLOSES Sulfa (Sulfonamide Antibiotics) [SULFA (SULFONAMIDE ANTIBIOTICS)] Allergy (Unknown, Verified 11/21/23 13:53) THROAT CLOSES aripiprazole [From ABILIFY] Adverse Reaction (Severe, Verified 11/21/23 13:53) dystonic reaction morphine Adverse Reaction (Intermediate, Verified 11/21/23 13:53) Rash sulfa Allergy (Unknown, Uncoded 11/21/23 13:53) unknown HPI HPI OV- RT knee pain: Details: 68-year-old female who returns to the office today with an educational sign language interpreter for a follow-up of right patellar ORIF, 05/21/23. She had an injection in her last visit which did not provide her any relief. She continues to have ongoing pain at the anterior aspect of her knee. She denies any pain with bending. She has no other concerns today. [facility] Medical History (Updated 10/09/23 @ 11:20 by Jewel Willis MD) Stable angina NSTEMI (non-ST elevated myocardial infarction) CAD (coronary artery disease) Lupus Surgical History H/O right knee surgery S/P ORIF (open reduction internal fixation) fracture S/P coronary artery stent placement Status post cardiac catheterization History of partial mastectomy of left breast History of appendectomy Hx of cardiac cath Family History Mother Enlarged heart CAD (coronary artery disease) Sister Heart attack Brother Throat cancer Brother Lung cancer Social History Alcohol intake: current Alcohol intake frequency: does not drink Patient Tobacco Use Status: Former Tobacco user Tobacco use type: Cigarette Years Smoked: 25 +/- Current occupational status: retired Current occupation: left hand dominant Review of Systems Const All systems reviewed & are unremarkable except as noted in HPI and below Physical Exam Vital Signs: BMI result Body Mass Index 24.5 Extrem Other: Right knee: Skin intact, surgical scar well healed, no erythema or joint effusion. Tenderness along the medial joint line. Full ROM with crepitus. Negative Michael?s. No ligamentous laxity. NVI. ? Assessment & Plan Assessment & Plan (1) S/P ORIF (open reduction internal fixation) fracture: Comment: orif patella Code(s): Z98.890 - Other specified postprocedural states; Z87.81 - Personal history of (healed) traumatic fracture Category: Surgical (2) Patellofemoral arthritis of right knee: Code(s): M17.11 - Unilateral primary osteoarthritis, right knee Category: Medical Plan Images were reviewed with Dr. Tobias along with the case and we discussed possible CLEMENTE however we want to get 3 months out to allow for stable healing. I did encourage her to work on therapy exercises and using anti-inflammatories which was sent to her pharmacy as well as modifications of activities. I would like to see her back in [address] Tobias and new x-rays, sooner if needed. Medications: New celecoxib (Celebrex) 200 mg PO BID 60 caps 3RF 30 days Patient Instructions: Scribed for Wesly Hernandez PA-C, by Anjel Russo medical policy specialist, on 11/21/2023 at 1:45 PM EST.? I, Wesly Hernandez PA-C, have personally reviewed and agree with the information entered by the scribe. Coding Level of Care Code Est Pt Level 3 (75040) Diagnoses S/P ORIF (open reduction internal fixation) fracture Z98.890; Z87.81 Patellofemoral arthritis of right knee M17.11
[2023-11-21 13:56] VITALS: BMI 24.5
== END 2023-11-21 14:22 | disposition home or self-care (01) ==
PROVIDERS: PCP Internal Medicine; Visit Provider Physician Assistant
DX: M17.11 Unilateral primary osteoarthritis, right knee (principal); Z87.81 Personal history of (healed) traumatic fracture
CPT/HCPCS: 99213

== ENCOUNTER → 2023-11-21 13:45 | Outpatient (BNVA) | payer OTHER, SELFPAY ==
[2023-08-15 15:05] VITALS: BP 114/62; BMI 21.8
== END ==
PROVIDERS: PCP Internal Medicine; Visit Provider Physician Assistant
DX: M17.11 Unilateral primary osteoarthritis, right knee (principal); Z87.81 Personal history of (healed) traumatic fracture; Z98.890 Other specified postprocedural states
CPT/HCPCS: 99212

== ENCOUNTER 2024-02-24 08:37 | Outpatient (REF) | payer OTHER, SELFPAY ==
[2023-08-15 15:05] VITALS: BP 114/62; BMI 21.8
== END 2024-02-24 08:38 | disposition home or self-care (01) ==
LOC: HO.HOSX 08:37
PROVIDERS: Visit Provider Orthopaedic Surgery
DX: M25.561 Pain in right knee (principal); Z98.890 Other specified postprocedural states; Z87.81 Personal history of (healed) traumatic fracture
CPT/HCPCS: 73562; 99212

== ENCOUNTER 2024-02-24 08:56 | Outpatient (AMB) | payer OTHER, SELFPAY ==
[2023-08-15 15:05] VITALS: BP 114/62; BMI 21.8
--- NOTE | 2024-02-24 08:57 | A.OFFVIS_ITS ---
Vital Signs 02/24/24 09:03 Height 5 ft 2 in Weight 134 lb BMI 24.5 Intake Visit Reasons: OV- Right Patella ORIF 05/21/23 - Discuss CLEMENTE Intake Note: Kasandra is a 68 year old female who presents today for a follow up of her right knee s/p Right Patella ORIF 05/21/23. Right Knee injection administered on 09/27/23 which did not provide relief. She was last seen with Wesly in November who wanted patient to follow up to discuss possible CLEMENTE. Patient reports that she has had mild increased pain with stationary bike, walking and stairs. She is taking Tylenol with no releif. Allergies Penicillins [PENICILLINS] Allergy (Unknown, Verified 11/21/23 13:53) STOPS BREATHING shellfish derived [SHELLFISH DERIVED] Allergy (Unknown, Verified 11/21/23 13:53) SWELLING/THROAT CLOSES Sulfa (Sulfonamide Antibiotics) [SULFA (SULFONAMIDE ANTIBIOTICS)] Allergy (Unknown, Verified 11/21/23 13:53) THROAT CLOSES aripiprazole [From ABILIFY] Adverse Reaction (Severe, Verified 11/21/23 13:53) dystonic reaction morphine Adverse Reaction (Intermediate, Verified 11/21/23 13:53) Rash sulfa Allergy (Unknown, Uncoded 11/21/23 13:53) unknown HPI HPI OV- Right Patella ORIF 05/21/23 - Discuss CLEMENTE: Details: Kasandra is a 68 year old female who presents today for a follow up of her right knee s/p Right Patella ORIF 05/21/23. Right Knee injection administered on 09/27/23 which did not provide relief. She was last seen with Wesly in November who wanted patient to follow up to discuss possible CLEMENTE. Patient reports that she has had mild increased pain with stationary bike, walking and stairs. She is taking Tylenol with no relief. She states she can not sleep and is in tremendous pain in that I need to either do a knee replacement or something because there is something wrong with her knee. She states she was doing well until she did physical therapy and that they ?messed up her knee?. [facility] Medical History Stable angina NSTEMI (non-ST elevated myocardial infarction) CAD (coronary artery disease) Lupus Surgical History (Reviewed 02/24/24 @ 09:10 by Cathy Dobbs [facility] [address]) H/O right knee surgery S/P ORIF (open reduction internal fixation) fracture S/P coronary artery stent placement Status post cardiac catheterization History of partial mastectomy of left breast History of appendectomy Hx of cardiac cath Family History Mother Enlarged heart CAD (coronary artery disease) Sister Heart attack Brother Throat cancer Brother Lung cancer Social History (Reviewed 02/24/24 @ 09:10 by Cathy Dobbs [facility]) Alcohol intake: current Alcohol intake frequency: does not drink Patient Tobacco Use Status: Former Tobacco user Tobacco use type: Cigarette Years Smoked: 25 +/- Current occupational status: retired Current occupation: left hand dominant Physical Exam Vital Signs: BMI result Body Mass Index 24.5 Results Reviewed Results Reviewed: I personally reviewed relevant radiographs. State stable appearance status post ORIF right knee. There is some mild mary ann screw lucency but the fracture appears healed Assessment & Plan Assessment & Plan (1) S/P ORIF (open reduction internal fixation) fracture: Comment: orif patella Code(s): Z98.890 - Other specified postprocedural states; Z87.81 - Personal history of (healed) traumatic fracture Category: Surgical Plan: This is a 68-year-old woman who is angry and hostile. She states something is wrong with her knee and then I need to fix it now. She is not amenable to discussion or exam and very unhappy. She states the surgery went well but that physical therapy street things up and that there is a problem with the hardware in it needs to come out. I reviewed the x-rays with her and she seemed to imply that I was somehow misleading her and that these were not the actual x-rays from today. I would recommend a referral to another physician for possible removal of hardware and or additional treatment as needed but it is not appropriate for this patient to behave in this manner at this time. She walked out of the office with a mildly antalgic gait. Orders: Orders XR knee RT 3V Today M25.561 - Pain in right knee Coding Level of Care Code Est Pt Level 3 (32664) Diagnoses S/P ORIF (open reduction internal fixation) fracture Z98.890; Z87.81
[2024-02-24 09:03] VITALS: BMI 24.5
== END 2024-02-24 10:58 | disposition home or self-care (01) ==
PROVIDERS: PCP Internal Medicine; Visit Provider Orthopaedic Surgery
DX: T84.84XA Pain due to internal orthopedic prosthetic devices, implants and grafts, initial encounter (principal)
CPT/HCPCS: 99213

== ENCOUNTER → 2024-07-27 14:02 | Outpatient (BNVA) | payer OTHER, SELFPAY ==
[2023-08-15 15:05] VITALS: BP 114/62; BMI 21.8
== END ==
PROVIDERS: PCP Internal Medicine; Visit Provider Internal Medicine Cardiovascular Disease

== ENCOUNTER 2024-10-05 14:01 | Outpatient (AMB) | payer OTHER, SELFPAY ==
[2023-08-15 15:05] VITALS: BP 114/62; BMI 21.8
--- NOTE | 2024-10-05 14:46 | A.OFFVIS_ITS ---
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 Name: [email or web address] Accompanied by: Self / Same As Patient Allergies Penicillins (PENICILLINS) Allergy (Unknown, Verified 11/21/23 13:53) STOPS BREATHING shellfish derived (SHELLFISH DERIVED) Allergy (Unknown, Verified 11/21/23 13:53) SWELLING/THROAT CLOSES Sulfa (Sulfonamide Antibiotics) (SULFA (SULFONAMIDE ANTIBIOTICS)) Allergy (Unknown, Verified 11/21/23 13:53) THROAT CLOSES aripiprazole (From ABILIFY) Adverse Reaction (Severe, Verified 11/21/23 13:53) dystonic reaction morphine Adverse Reaction (Intermediate, Verified 11/21/23 13:53) Rash sulfa Allergy (Unknown, Uncoded 11/21/23 13:53) unknown Medication List - Last Reconciled 10/05/24 by Jewel Willis MD acetaminophen 650 mg (2 x 325 mg) PO Q6H PRN 30 days albuterol sulfate 1 - 2 vials inhalation Q4H PRN albuterol sulfate 90 mcg/actuation 2 puffs inhalation Q4H PRN atorvastatin 80 mg PO DAILY 90 days celecoxib (Celebrex) 200 mg PO BID 30 days cholecalciferol (vitamin D3) 50 mcg PO DAILY clopidogrel 75 mg PO DAILY cyclobenzaprine 1 tab PO BID PRN diphenhydramine HCl (Banophen) 1 cap PO Q12H PRN duloxetine (Cymbalta) 60 mg PO BEDTIME duloxetine (Cymbalta) 30 mg PO QAM ferrous sulfate (FeroSul) 325 mg PO DAILY fluticasone furoate-vilanterol 100-25 mcg/dose (Breo Ellipta) 1 ea inhalation DAILY fluticasone propionate 50 mcg/actuation 2 sprays intranasal DAILY folic acid 1 tab PO DAILY meclizine 25 mg PO DAILY PRN olanzapine 10 mg PO BEDTIME omeprazole 40 mg PO DAILY propranolol 60 mg PO BID trazodone 1 - 2 tabs PO BEDTIME PRN walker As directed HPI Comments Details: Pleasant 69-year-old female who is here for follow-up. She underwent cardiac catheterization in the past when she presented with NSTEMI. Cardiac catheterization shows severe mid right coronary artery and left anterior descending artery stenosis. We decided to treat the LAD with drug- eluting stent. subsequently she presented with chest pain again and was taken for cardiac catheterization and received drug-eluting stent to right coronary artery. This was in March 2021. She continues to smoke and was seen again for shortness of breath chest discomfort. She underwent stress testing when she was taken for cardiac catheterization. This showed severe InStent restenoses in the right coronary artery. This was treated with intravascular ultrasound guidance with drug-eluting stents. She is back for follow-up and is denying any significant chest discomfort. She is saying her breathing is little better but she still has shortness of breath which is mostly due to underlying COPD. We discussed about smoking cessation again. She is saying she is more energetic since she had the right coronary artery stenting. She returns for follow-up and is complaining of fatigue. She has no other symptoms currently. She is saying she has stop smoking. Taking medications regularly. 06/10/2023: She returns for follow-up. She has her right leg in a brace currently. She said she fell and fractured her leg and underwent surgery. She is doing well at this point. No chest discomfort shortness of breath. Since November she has stop smoking which I have congratulated her about. She is on dual antiplatelet therapy currently due to RCA stenting. 10/09/2023: She returns for follow-up. She has been getting some anemia and seeing hematology. She is on aspirin and Brilinta. Her PCI was in 04/03/2022. No obvious bleeding. No chest discomfort shortness of breath. She has quit smoking in 12/02/2022 and since then breathing has been quite stable. 10/05/2024: She is here for follow-up. She is saying she has been getting shortness of breath with activity for months. She also has some cough. She is saying that she has stopped smoking 2 years ago. She has never seen pulmonology before. No chest discomfort. Taking Plavix monotherapy at this point. [facility] Medical History (Reviewed 10/05/24 @ 14:51 by Nemo Perez [facility]) Stable angina NSTEMI (non-ST elevated myocardial infarction) CAD (coronary artery disease) Lupus Surgical History H/O right knee surgery S/P ORIF (open reduction internal fixation) fracture S/P coronary artery stent placement Status post cardiac catheterization History of partial mastectomy of left breast History of appendectomy Hx of cardiac cath Family History Mother Enlarged heart CAD (coronary artery disease) Sister Heart attack Brother Throat cancer Brother Lung cancer Social History Alcohol intake: current Alcohol intake frequency: does not drink Patient Tobacco Use Status: Former Tobacco user Tobacco use type: Cigarette Years Smoked: 25 +/- Current occupational status: retired Current occupation: left hand dominant Review of Systems Const Denies chills, Denies fatigue, Denies fever(s), Denies frequent falls, Denies weakness, Denies weight gain and Denies weight loss ENT Denies dizziness Card Denies chest pain, Denies leg edema, Denies lightheadedness, Denies palpitations, Denies dyspnea and Denies dyspnea on exertion Resp Denies cough, Denies dyspnea and Denies dyspnea on exertion GI Denies hematochezia Musc Denies abnormal gait, Denies muscle weakness, Denies numbness, Denies radiating pain into limb and Denies tingling Neuro Denies abnormal gait, Denies dizziness, Denies frequent falls, Denies numbness, Denies tingling and Denies weakness Endo Denies fatigue and Denies palpitations Physical Exam Vital Signs: Last Vital Signs Pulse 64 10/05/24 14:49 BP 110/60 10/05/24 14:49 BMI result Body Mass Index 23.8 GENERAL APPEARANCE: in no acute distress, pleasant. NECK: no carotid bruit, no jugular venous distention. SKIN: no suspicious lesions, warm and dry. HEART: no murmurs, regular rate and rhythm. LUNGS: clear to auscultation bilaterally. ABDOMEN: soft, nontender. EXTREMITIES: no edema. PERIPHERAL PULSES: equal. NEUROLOGIC: No gross deficits, AAO X 3 Office Procedures EKG Details: Sinus rhythm 64 beats per minute, normal ECG, QTC 449 milliseconds [id number], Complete Assessment & Plan Assessment & Plan (1) Dyspnea: Code(s): R06.00 - Dyspnea, unspecified Category: Medical Plan Pleasant 69 year female who is here for follow-up. She has background history of coronary disease with previous RCA PCI. She is currently on Plavix monotherapy. Clinically does not appear to be in heart failure. She is complaining of dyspnea on exertion for months. This happened when she walks. She was a former smoker and has not had any lung testing. We will arrange PFTs for her. I will also do echocardiogram to rule out any wall motion abnormalities or structural heart issues. If PFTs normal then we will arrange exercise stress test. Thank you for allowing me to participate in the care of your patient. Please feel free to contact me if you have any questions. Orders: Orders PFT pulmonary function test Today R06.00 - Dyspnea, unspecified CA echo transthoracic complete Today R06.00 - Dyspnea, unspecified Coding Level of Care Code Est Pt Level 4 (06827) Diagnoses Dyspnea R06.00 CPT Codes EKG - CPT: 81099-[id number], Complete ([id number])
[2024-10-05 14:49] VITALS: BP 110/60; PULSE 64; BMI 23.8
--- OUTSIDE RECORDS SUMMARY | 2024-10-05 15:36 | XMS_ITS | Clinical Summary ---
Author Organization [facility] Address [address] [place] [address] Phone Care Team Providers Care Trackmobile Operator Name Role Phone Gurmeet Park MD Primary Care Provider [phone] Allergies Active Allergy Reactions Criticality Noted Date Comments Morphine 08/15/2021 Penicillins 11/19/2017 Trouble breathing Shellfish Containing Products Anaphylaxis,Rash High 01/01/2024 Dermatitis Sulfa (Sulfonamide Antibiotics) 11/19/2017 Trouble breathing Medications clopidogreL (PLAVIX) 75 mg tablet Take 1 tablet (75 mg total) by mouth 1 (one) time each day. 12/30/2023 Active omeprazole (PriLOSEC) [address] capsule Take 1 capsule (40 mg total) by mouth 1 (one) time each day. Active propranoloL (INDERAL) 60 mg tablet Take 1 tablet (60 mg total) by mouth 2 (two) times a day. 02/05/2024 Active traZODone (DESYREL) 100 mg tablet Take 1 tablet (100 mg total) by mouth at bedtime as needed. at bedtime for sleep Active OLANZapine (ZyPREXA) 7.5 mg tablet 03/14/2024 Active DULoxetine (CYMBALTA) [address] capsule Take 1 capsule (60 mg total) by mouth 1 (one) time each day in the evening. Active fluticasone furoate (ARNUITY ELLIPTA) 50 mcg/actuation blister with device inhaler Inhale by mouth. Active cholecalciferol (VITAMIN D-3) 50 mcg (2,000 unit) tablet Take 1 tablet (2,000 Units total) by mouth 1 (one) time each day. 11/22/2023 Active cyclobenzaprine (FLEXERIL) 10 mg tablet Take 1 tablet (10 mg total) by mouth 2 (two) times a day if needed for muscle spasms. Active albuterol 2.5 mg /3 mL (0.083 %) nebulizer solution 3 mL (2.5 mg total) every 6 hours as needed. 04/29/2020 Active albuterol sulfate 90 mcg/actuation aerosol powdr breath activated Inhale by mouth. Active meclizine (ANTIVERT) 25 mg tablet Take 1 tablet (25 mg total) by mouth 3 times daily as needed. Active folic acid (FOLVITE) 1 mg tablet TAKE 1 TABLET BY MOUTH DAILY 90 tablet 08/05/2024 Active FeroSuL 325 mg (65 mg iron) tablet TAKE 1 TABLET BY MOUTH ONCE DAILY 90 tablet 1 08/11/2024 Active docusate sodium (COLACE) 100 mg capsule TAKE 1 CAPSULE BY MOUTH DAILY 90 capsule 1 08/11/2024 Active atorvastatin (LIPITOR) 80 mg tablet TAKE 1 TABLET BY MOUTH DAILY 90 tablet 08/21/2024 Active Banophen 25 mg capsule TAKE 1 CAPSULE BY MOUTH EVERY 12 HOURS 180 capsule 08/21/2024 Active Active Problems Problem Noted Date Diagnosed Date Essential tremor 02/01/2023 Decreased libido 08/15/2021 Overview (02/21/2024): Last Assessment & Plan: Discussed that the etiology of low libido is often multirfactorial. Factors can include medication side effects, stress, symptoms of depression or anxiety, body image, time with partner, busy home life, and in some cases pain. I explained that I generally recommend scheduling alone time, romantic time and even sex with her partner to regain a positive association and perhaps improve libido over time. She agrees and plans to come back if not improving with working on these things. Anxiety 01/16/2018 Overview (02/21/2024): 01/2017 Anxiety attack Bipolar 2 disorder ([facility] V24, [facility] V28) Borderline personality disorder ([facility] V24, S/[facility] V28) 01/16/2018 Cataracts, bilateral 01/16/2018 Fibromyalgia 01/16/2018 Single kidney 11/19/2017 Overview (02/21/2024): One functioning kidney CAD (coronary artery disease) 11/19/2017 Overview (02/21/2024): Old ME COPD (chronic obstructive pu lmonary disease) ([facility] V24, [facility] V28) 11/19/2017 Depression 11/19/2017 Overview (02/21/2024): [place] [facility] [place]astroes[place] disease[place] 8 Encounters Date Type Department Care Team Description 09/18/2024 Telephone Adult Medicine [address] [phone] Gurmeet Park MD Medication Problem 08/07/2024 9:00 AM EDT Office Visit Adult Medicine [address] [phone] Rosemary Telles PA Routine history and physical examination of adult (Primary Dx); Chronic pain of right knee; S/P ORIF (open reduction internal fixation) fracture; Osteopenia, unspecified location; High cholesterol; Vitamin D insufficiency from Last 3 Months Immunizations Name Administration Dates Next Due Influenza Quadravalent, MDCK , 0.5ml, preservative free (Flucelvax) 6mo and older 05/24/2021,07/03/2018 Influenza trivalent, 0.5mL (Fluad) 65yo and olde r 02/01/2023 Influenza trivalent, 0.5mL, preservative free (Fluarix; FluLaval; Fluzone) ages 6mo and older (Afluria) 3 years and older 01/23/2017 Moderna SARS-CoV-2 COVID-19, mRNA, LNP-S, preservative free 08/31/2021 PPD Test 06/25/2018 Pneumococcal polysaccharide 23 valent (Pneumovax 23) 2yo and older 01/02/2017 SARS-COV-2 (COVID-19) Vaccine, Unspecified 02/21 Tdap Tetanus diptheria acell ular pertussis (Boostrix; Adacel) 7yo and older 01/02/2017 Surgical History Surgery Date Site/Laterality Comments CARPAL TUNNEL RELEASE Left PROCEDURE: HISTORICAL CARPAL TUNNEL REL BREAST LUMPECTOMY 1998 Left PROCEDURE: HISTORICAL BREAST LUMPECTOMY TUBAL LIGATION PROCEDURE: HISTORICAL TUBAL LIGATION APPENDECTOMY PROCEDURE: HISTORICAL APPENDECTOMY HEMORRHOID SURGERY PROCEDURE: HISTORICAL HEMMORROIDECTOMY OTHER SURGICAL HISTORY PROCEDURE: ---- OTHER ----; COMMENT: polythelia resection b/l BREAST BIOPSY 1998 Left PROCEDURE: BX BREAST; PERC NEEDLE CORE W/IMAG GUID BREAST BIOPSY 1977 Right PROCEDURE: DE BX BREAST W/DEVICE 1ST LESION ULTRASOUND GUID; COMMENT: neg Medical History Medical History Date Comments Osteoarthritis 11/19/2017 DX:Osteoarthriti s; COMMENT: Lumbar spine, Shoulders, Elbows, Hands, Knees, Feet History of breast cancer 1998 DX:Hist ory of breast cancer Multiple sclerosis ([facility] V24, [facility] V28) 11/19/2017 DX:Multiple sclerosis ([facility]) Depression 11/19/2017 DX:Depression; C OMMENT: SA in the past Lupus 11/19/2017 DX:Lupus Transverse myelitis ([facility] V24, [facility] V28) 11/19/2017 DX:Transverse myelitis ([facility]) Dystonia 11/19/2017 DX:Dystonia GERD (gastroesophageal reflux disease) 11/19/2017 DX:GERD (gastroesophageal reflux disease) Solitary kidney 11/19/2017 DX:Solitary kidn ey; COMMENT: One functioning kidney COPD (chronic obstructive pu lmonary disease) ([facility] V24, [facility] V28) 11/19/2017 DX:COPD (chronic o bstructive pulmonary disease) ([facility]) Osteopenia 11/19/2017 DX:Osteopenia; C OMMENT: 11/2016 lowest T-score in lumbar spine -2.0%; FRAX 13% CAD (coronary artery disease) 11/19/2017 DX :CAD (coronary artery disease); COMMENT: Old ME Thyroid nodule 01/16/2018 DX:Thyroid nodul e; COMMENT: 11/2016 U/S: small bilateral avascular nodules, largest measuring 0.8cm; left thyroid lobe nodules not previously seen Anxiety 01/16/2018 DX:Anxiety; COMM ENT: 01/2017 anxiety attack Cataracts, bilateral 01/16/2018 DX:Cataract s, bilateral Fibromyalgia 01/16/2018 DX:Fibromyalgia Bipolar 2 disorder ([facility] V24, [facility] V28) 01/16/2018 DX:Bipolar 2 disorder (HCC) Borderline personality disor mika (CMS/HCC V24, CMS/HCC V28) 01/16/2018 DX:Borderline personality d isorder (HCC) Tremors of nervous system 03/19/2018 DX:Gulshan mors of nervous system; COMMENT: Follows with neuro- Dr. Marin Personal history of malignan t neoplasm of breast 1998 DX:Personal history of malig nant neoplasm of breast; COMMENT: left breast Family History Medical History Relation Name Comments Alzheimer's disease Brother Alzheimer's disease Mother Stomach cancer Mother Schizophrenia Paternal Grandmother Diabetes Sister Relation Name Status Comments Brother Alive Daughter Alive Father (Age 89) unknown Maternal Grandfather Maternal Grandmother Mother (Age 98) Paternal Grandfather Paternal Grandmother Sister Alive Son Alive Social History Tobacco Use Types Packs/Day Years Used Date Smoking Tobacco: Former Smokeless Tobacco: Former Alcohol Use Standard Drinks/Week Comments No 0 (1 standard drink = 0.6 oz pur e alcohol) Comments Unknown Sex and Gender Information Value Date Recorded Sex Assigned at Not on file Legal Sex Female 8:29 AM EST Gender Identity Not on file Sexual Orientation Not on file Obstetrics History Last Filed Vital Signs Vital Sign Reading Time Taken Comments Blood Pressure 108/66 08/07/2024 9:02 AM EDT Pulse 72 08/07/2024 9:02 AM EDT Temperature 36.1 C (97 F) 08/07/2024 9:02 AM EDT Respiratory Rate - - Oxygen Saturation 98% 08/07/2024 9:02 AM EDT Inhaled Oxygen Concentration - - Weight 60.3 kg (132 lb 14.4 oz) 08/07/2024 9:02 AM EDT Height 157.5 cm (5' 2.01 ) 08/07/2024 9:02 AM ED T Body Mass Index 24.3 08/07/2024 9:02 AM EDT Plan of Treatment Upcoming Encounters Date Type Department Care Team (Late st Contact Info) Description 12/25/2024 10:30 AM EDT Office Visit [facility] Hematology Oncology [address] [place] [phone] Destini Martinez PA [address] [place] [address] 01/26/2025 10:00 AM EDT Appointment Bone Density - [address] [phone] 02/19/2025 9:30 AM EST Office Visit Adult Medicine [address] [phone] Gurmeet Park MD [address] [place] [address] Health Maintenance Due Date Last Done Comments Zoster Vaccines (1 of 2) 08/27/1975 RSV Immunization Adult Patients (1 - Risk 60-74 years 1-dose series) 2016 Pneumococcal Vaccine: 50+ Years (2 of 2 - PCV) 01/02/2018 01/02/2017 COVID-19 Vaccine (3 - Mixed Product risk series) 03/21/2022 02/21/2022, 08/31/2021 Falls Risk Assessment 03/24/2022 Medicare Annual Wellness Visit 03/24/2022 Osteoporosis Screening (Bone Density Screening) 08/24/2022 08/24/2021 Influenza Vaccine (Season Ended) 2024 02/01/2023, 05/24/2021, 07/03/2018, Additional history exists Hypertension/CHF/CAD Annual BMP Blood Test 03/17/2025 03/17/2024, 08/05/2023 Depression Screening 08/07/2025 08/07/2024, 08/05/19 Social Influencers of Health Screening 08/07/2025 08/07/2024 Breast Cancer Screening 09/15/2025 09/16/19 24, 09/16/2023, 08/31/2022, Additional history exists DTaP,Tdap,and Td Vaccines (2 - Td or Tdap) 01/02/2027 01/02/2017 Cholesterol Screening (Lipid Panel) 08/04/2028 08/05/2023 Colorectal Cancer Screening: Colonoscopy 10/21/2028 10/21/2018 Hepatitis C Screening Completed 05/29/2019 HIB Vaccines Aged Out No longer eligi ble based on patient's age to complete this topic HPV Vaccines Aged Out No longer eligi ble based on patient's age to complete this topic Hepatitis A Vaccines Aged Out No long er eligible based on patient's age to complete this topic Hepatitis B Vaccines Aged Out No long er eligible based on patient's age to complete this topic IPV Vaccines Aged Out No longer eligi ble based on patient's age to complete this topic MMR Vaccines Aged Out No longer eligi ble based on patient's age to complete this topic Meningococcal ACWY Vaccine Aged Out N o longer eligible based on patient's age to complete this topic Meningococcal B Vaccine Aged Out No l onger eligible based on patient's age to complete this topic RSV Immunization Patients Under 20 months Aged Out No longer eligible based on patient's age to complete this topic Varicella Vaccines Aged Out No longer eligible based on patient's age to complete this topic Procedures Procedure Name Priority Date/Time Associated Diagnosis Comments COMPREHENSIVE METABOLIC PANEL Routine 03/17/2024 12:05 PM EST Iron deficiency anemia, unspecified Chronic kidney disease, unspecified SCREENING MAMMOGRAPHY BI 2-VIEW BREAST INC CAD Routine 09/16/2023 9:59 AM EDT Personal history of malignant neoplasm of breast Encounter for screening mammogram for malignant neoplasm of breast DEPRESSION SCREENING Routine 08/05/2023 LIPID PANEL Routine 08/05/2023 DXA BONE DENSITY STUDY 1+ SITS AXIAL SKEL Routine 08/24/2021 9:42 AM EDT Encounter for screening for osteoporosis HEPATITIS C SCREENING Routine 05/29/2019 COLONOSCOPY Routine 10/21/2018 from Last 3 Months or Most Recently Relevant to Health Maintenance Results * Comprehensive metabolic panel (03/17/2024 12:05 PM EST) [facility] Signature Sodium 139 133 - 145 mmol/L LAB CHEMISTRY METHOD 03/17/2024 2:03 PM EST [facility] Potassium 4.3 3.5 - 5.5 mmol/L LAB CHEMISTRY METHOD 03/17/2024 2:[address] [facility] Chloride 105 96 - 110 mmol/L LAB CHEMISTRY METHOD 03/17/2024 2:[address] [facility] CO2 30 21 - 32 mmol/L LAB CHEMISTRY METHOD 03/17/2024 2:[address] [facility] Anion Gap 4 3 - 11 LAB CHEMISTRY METHOD 03/17/2024 2:[address] [facility] Glucose 81 70 - 100 mg/dL LAB CHEMISTRY METHOD 03/17/2024 2:[address] [facility] BUN 15 5 - 25 mg/dL LAB CHEMISTRY METHOD 03/17/2024 2:[address] [facility] Creatinine 1.02 0.50 - 1.10 mg/dL LAB CHEMISTRY METHOD 03/17/2024 2:[address] [facility] eGFR 60 >=60 mL/min/1. 73m2 LAB CHEMISTRY METHOD 03/17/2024 2:[address] [facility] Comment:Calculation based on the Chronic Kidney Disease Epidemiology Collaboration (CKD-EPI) equation refit without adjustment for race. BUN/Creatinine Ratio 14.7 LAB CHEMISTRY METHOD 03/17/2024 2:[address] [facility] Calcium 9.0 8.5 - 10.5 mg/dL LAB CHEMISTRY METHOD 03/17/2024 2:[address] [facility] AST (SGOT) 16 10 - 42 unit/L LAB CHEMISTRY METHOD 03/17/2024 2:[address] [facility] ALT (SGPT) 16 10 - 60 unit/L LAB CHEMISTRY METHOD 03/17/2024 2:[address] [facility] Alkaline Phosphatase 108 42 - 121 unit/L LAB CHEMISTRY METHOD 03/17/2024 2:[address] [facility] Total Protein 6.8 6.0 - 8.0 g/dL LAB CHEMISTRY METHOD 03/17/2024 2:[address] [facility] Albumin 3.5 3.2 - 5.0 g/dL LAB CHEMISTRY METHOD 03/17/2024 2:03 PM EST [facility] Total Bilirubin 0.3 0.0 - 1.4 mg/dL LAB CHEMISTRY METHOD 03/17/2024 2:03 PM EST [facility] Blood Venous blood specimen / Unknown Venipuncture / Unknown 03/17/2024 12:05 PM EST 03/17/2024 1:41 PM EST us Destini DIAZ LAB BLOOD ORDERABLES Final Re sult [facility]) [facility] [address] [place] [address], * SCREENING MAMMOGRAPHY BI 2-VIEW BREAST INC CAD (09/16/2023 9:59 AM EDT) Anatomical Region Laterality Modality Radiographic Ellie ging 08/31/2022 10:0 0 AM EDT Narrative 09/16/2023 11:38 AM EDT This is a summary report. The complete report is available in the patient's medical record. If you cannot access the medical record, please contact the sending organization for a detailed fax or copy. History: Personal history of left breast cancer, status post lumpectomy in 1998. Study: SCREENING MAMMOGRAPHY BI 2-VIEW BREAST INC CAD Technique: Bilateral full-field digital screening mammography is obtained and read in conjunction with computer aided detection. Tomosynthesis as well as 2D C-View imaging were obtained. Comparison: Comparison made to multiple prior, most recent August 31, 2022, and most remote May 21, 2017. Breast composition: The breast tissue is heterogeneously dense, which may obscure small masses. Right breast: History of previous needle core biopsy. No suspicious masses, suspicious calcifications or other abnormalities are seen. Left breast: History of prior lumpectomy. No suspicious masses, suspicious calcifications or other abnormalities are seen. IMPRESSION: Impression: Bilateral breasts: Benign, no specific mammographic evidence of malignancy. Normal interval follow-up is recommended in 12 months. BI-RADS: Category 2: Benign Procedure Note Ced Raman MD - 01/29/2024 This is a summary report. The complete report is available in thepatient's medical record. If you cannot access the medical record, pleasecontact the sending organization for a detailed fax or copy. History: Personal history of left breast cancer, status post lumpectomy [id number]. Study: SCREENING MAMMOGRAPHY BI 2-VIEW BREAST INC CAD Technique: Bilateral full-field digital screening mammography is obtainedand read in conjunction with computer aided detection. Tomosynthesis aswell as 2D C-View imaging were obtained. Comparison: Comparison made to multiple prior, most recent August 31, 2022,and most remote May 21, 2017. Breast composition: The breast tissue is heterogeneously dense, which mayobscure small masses. Right breast: History of previous needle core biopsy. No suspiciousmasses, suspicious calcifications or other abnormalities are seen. Left breast: History of prior lumpectomy. No suspicious masses,suspicious calcifications or other abnormalities are seen. IMPRESSION: Impression: Bilateral breasts: Benign, no specific mammographic evidence ofmalignancy. Normal interval follow-up is recommended in 12 months. BI-RADS: Category 2: Benign Jessica Ricketts MD IMG XR PROCEDURES Final Res ult * Depression Screening (08/05/2023) Pathologist [facility] Depression Screening abstracted Historical Provider HEALTH MAINTENANCE Final Result * Lipid panel (08/05/2023) LDL/HDL Ratio 0 0 - 4 Triglycerides 82 0 - 150 mg/dL Cholesterol 113 0 - 200 mg/dL HDL 56 >=40 mg/dL LDL Cholesterol 41 0 - 100 mg/dL Blood Venous blood specimen / Unknown Historical Provider LAB BLOOD ORDERABLES Kym l Result * DXA BONE DENSITY STUDY 1+ SITS AXIAL SKEL (08/24/2021 9:42 AM EDT) Anatomical Region Laterality Modality Bone Densitometr y 05/24/2021 9:20 AM EST Narrative 08/24/2021 4:42 PM EDT BONE DENSITY Lumbar Spine T-score is -2.0 (SD relative to 20-29 y/o adult) Z-score is -0.2 (SD relative to age matched peers) This is consistent with osteopenia by criteria defined by the WHO. Left Hip T-score is -1.7 Z-score is -0.4 This is consistent with osteopenia by criteria defined by the WHO. . Impression: Based on the World Health Organization criteria, Kasandra Puentes should be classified as having osteopenia. This patient has a 5.1% risk of major osteoporotic fracture and a 1% risk of hip fracture over the next 10 years. (World Health Organization Fracture Risk Assessment) [facility] Department of Internal Medicine recommends using National Osteoporosis Foundation (NOF) guidelines in treatment decisions related to osteoporosis. NOF guidelines suggest considering treatment for postmenopausal women and men aged 50 or older presenting with the following: History of hip or vertebral fracture. T-score less than or equal to -2.5 (DXA) at the femoral neck, total hip, or spine, after appropriate evaluation to exclude secondary causes. Low bone mass (T-score between -1.0 and -2.5 at the femoral neck or spine) AND a 10-year probability of a hip fracture greater than or equal to 3% OR a 10-year probability of a major osteoporosis-related fracture greater than or equal to 20% based on the [place]-adapted WHO algorithm Please note that all treatment decisions require clinical judgment and consideration of individual patient factors, including patient preferences, co-morbidities, previous drug use, risk factors not captured in the FRAX model (e.g., frailty, falls, vitamin D deficiency, increased bone turnover, interval significant decline in bone density) and possible under- or over-estimation of fracture risk by FRAX. Procedure Note Destini De La Torre MD - 04/03/2022 BONE DENSITY Lumbar Spine T-score is -2.0 (SD relative to 20-29 y/o adult) Z-score is -0.2 (SD relative to age matched peers) This is consistent with osteopenia by criteria defined by the WHO. Left Hip T-score is -1.7 Z-score is -0.4 This is consistent with osteopenia by criteria defined by the WHO. . Impression: Based on the World Health Organization criteria, Kasandra Akinsould be classified as having osteopenia. This patient has a 5.1% risk ofmajor osteoporotic fracture and a 1% risk of hip fracture over the next 10years. (World Health Organization Fracture Risk Assessment) [facility] Department of Internal Medicine recommendsusing National Osteoporosis Foundation (NOF) guidelines in treatmentdecisions related to osteoporosis. NOF guidelines suggest consideringtreatment for postmenopausal women and men aged 50 or older presentingwith the following: History of hip or vertebral fracture. T-score less than or equal to -2.5 (DXA) at the femoral neck, total hip,or spine, after appropriate evaluation to exclude secondary causes. Low bone mass (T-score between -1.0 and -2.5 at the femoral neck or spine)AND a 10-year probability of a hip fracture greater than or equal to 3% ORa 10-year probability of a major osteoporosis-related fracture greaterthan or equal to 20% based on the [place]-adapted WHO algorithm Please note that all treatment decisions require clinical judgment andconsideration of individual patient factors, including patientpreferences, co-morbidities, previous drug use, risk factors not capturedin the FRAX model (e.g., frailty, falls, vitamin D deficiency, increasedbone turnover, interval significant decline in bone density) and possibleunder- or over-estimation of fracture risk by FRAX. Flor DIAZ IMG DXA PROCEDURES Final Resu lt * Hepatitis C Screening (05/29/2019) [facility] Hepatitis C Screening abstracted Historical Provider HEALTH MAINTENANCE Final Result * Colonoscopy (10/21/2018) [facility] Colonoscopy no interpretation , abstracted Anatomical Region Laterality Modality Other Historical Provider HEALTH MAINTENANCE Final Result from Last 3 Months or Most Recently Relevant to Health Maintenance Insurance [facility] MEDICARE Member Subscriber Plan / Payer (Ef fective 2023-Present) Name:Kasandra Nair Relation to Subscriber:Self Name:Kasandra Puentes Payer ID:[id number] Group ID:[id number] Type:Not on file Address: [place] [address] [address] [id number] Care Teams Trackmobile Operator Relationship Specialty Start Date End Date Gurmeet Park MD [address] [place] [id number] PCP - General Internal Medicine 12/29/19
== END 2024-10-05 15:05 | disposition home or self-care (01) ==
LOC: HO.HCS 14:02
PROVIDERS: PCP Internal Medicine; Visit Provider Internal Medicine Cardiovascular Disease
DX: R06.00 Dyspnea, unspecified (principal)
CPT/HCPCS: 93010; 99214

== ENCOUNTER → 2024-10-05 14:01 | Outpatient (BNVA) | payer OTHER, SELFPAY ==
[2023-08-15 15:05] VITALS: BP 114/62; BMI 21.8
== END ==
PROVIDERS: PCP Internal Medicine; Visit Provider Internal Medicine Cardiovascular Disease
DX: R06.00 Dyspnea, unspecified (principal)
CPT/HCPCS: 93005; 99212

== ENCOUNTER → 2024-11-05 14:54 | Outpatient (REF) | payer OTHER, SELFPAY ==
[2023-08-15 15:05] VITALS: BP 114/62; BMI 21.8
--- NOTE | 2024-11-05 14:57 | CA_ITS ---
Transthoracic Echocardiogram Patient (Last, First, Middle): Kasandra Hernadez, Gender: Female Date of : 1955 Age: 69 Procedure Date: 11/05/2024 Procedure Type: Transthoracic Echocardiogram Location: OP Height: 157. cm Weight: 58.97 kg BSA: 1.59 m2 Heart Rate: 73 bpm BP: 115 / 65 mmHg Arcade Attendant: ANASTACIO/GELACIO Referring MD: Jewel Willis MD Nuclear Medicine Chief Technologist: Jewel Willis MD Symptoms: R06.00 - Dyspnea, unspecified Study Quality: Adequate ECG Rhythm: Sinus Conclusions: - Normal left ventricular size, thickness, and systolic function. The visually estimated ejection fraction is between 55-60%. - Regional wall motion abnormalities can not be excluded due to suboptimal endocardial definition. - Normal right ventricular cavity size and systolic function. Findings Left Ventricle Normal left ventricular size, thickness, and systolic function. The visually estimated ejection fraction is between 55-60%. Regional wall motion abnormalities can not be excluded due to suboptimal endocardial definition. Abnormal diastolic function is noted. Spectral Doppler is indicative of an impaired relaxation filling pattern. E/E prime ratio is between 8 and 15 consistent with indeterminate filling pressures. Right Ventricle Normal right ventricular cavity size and systolic function. Atria The left atrium is normal in size. The right atrium is normal in size. Aortic Valve The aortic valve was not well visualized. There is no aortic valve stenosis. There is no aortic valve regurgitation. Mitral Valve Normal mitral valve structure and function. The mitral valve appears normal. There is no mitral valve regurgitation. There is no mitral valve stenosis. Pulmonic Valve The pulmonic valve is likely normal. Tricuspid Valve Likely normal tricuspid valve structure and function. Tricuspid regurgitation envelope is inadequate for calculation of right ventricular systolic pressure. Normal right atrial pressure. Great Vessels All visible segments of the aorta are normal in size. Venous The inferior vena cava is normal in size and collapses greater than 50% with inspiration. Pericardium/Pleural There is no evidence of pericardial effusion. Prior Study Comparison No significant change compared to prior study dated: 11/15/2020. Measurements 2D Linear Measurements IVSd: 0.62 0.6-0.9/0.6-1.0 cm LVIDd: 4.20 3.9-5.3/4.2-5.9 cm LVIDd Index: 2.64 2.4-3.2/2.2-3.1 cm/m2 LVIDs: 2.59 2.0-3.6 cm LVPWd: 0.77 0.7-1.1 cm LA Diam: 2.70 2.7-3.8/3.0-4.0 cm LAIDs Index: 1.70 1.5-2.3 cm/m2 LV Mass: 104.91 67-162/88-224 g LV Mass Index: 65.98 43-95/49-115 g/m2 LVOT Diam: 1.80 3.0+(-)1.3 cm 2D Systolic Function EF 4C: 63.70 >55% EF 2C: 59.00 >55% EF BiP: 59.90 >55% Mitral Valve MV Pk E: 0.69 MV PK A: 0.87 MV Decel Time: 211.00 E/A: 0.80 E'Lateral: 7.40 E'Medial: 5.87 E/E' Med: 11.80 E/E' Lat: 9.40 PHT: 62.00 MVA PHT: 3.55 Decel Navajo: 3.29 Aortic Valve AoV Pk Mayo: 1.35 AoV Mn Mayo: 0.95 AoV VTI: 0.26 AoV Pk Grad: 7.00 Aov Mn Grad: 4.00 DORIS Cont.VTI: 1.78 LVOT LVOT Pk Mayo: 0.95 LVOT Mn Mayo: 0.61 LVOT VTI: 0.18 LVOT Pk Grad: 4.00 LVOT Mn Grad: 2.00 LVOT Diam: 1.80 LVOT Area: 2.54 Diastolic Function MV Pk E: 0.69 MV Pk A: 0.87 E/A: 0.80 E'Medial: 5.87 E/E' Med: 11.80 E' Laterial: 7.40 E/E' Lat: 9.40 Right Ventricle TAPSE (mm): 17.90 TVS' Mayo: 10.00 Tricuspid Valve RA Press: 3.00 Great Vessels Aorta Sinus of Valsalva: 2.80 2.0-3.5 cm Ao Asc: 3.10 2.1-3.4 cm Pulmonary Valve PV Pk Mayo: 0.81 Peak PV Grad: 3.00 Updated in Other Vendor System with Status of Final Jewel Willis MD electronically signed on 11/07/2024 12:56:38 PM with status of Final
--- OUTSIDE RECORDS SUMMARY | 2024-11-05 15:00 | XMS_ITS | Encounter Summary ---
Author Organization [employer] Address [address] [place] [address] Care Team Providers Care Customs Investigator Name Role Phone Unavailable Primary Care Provider Unavailabl e Encounter Details Date Type Department Care Team (Latest Contact Info) Description 07/05/2020 Abstract HHC CONVERSIONS Dental, Provider, DDS Social History Tobacco Use Types Packs/Day Years Used Date Smoking Tobacco: Never Assessed Comments Unknown Sex and Gender Information Value Date Recorded Sex Assigned at Female 02/12/2022 10:31 AM EDT Legal Sex Female 10:31 AM EDT Gender Identity Female 02/12/2022 10:31 AM EDT Sexual Orientation Straight 02/12/2022 10 :31 AM EDT documented as of this encounter Plan of Treatment Not on file documented as of this encounter Visit Diagnoses Not on filedocumented in this encounter
--- OUTSIDE RECORDS SUMMARY | 2024-11-05 15:00 | XMS_ITS | Clinical Summary ---
Author Organization Formerly [facility] Address [address] [place] [address] Care Team Providers Care Canvas Worker Name Role Phone Gurmeet Park MD Primary Care Provider [phone] Allergies Active Allergy Reactions Criticality Noted Date Comments Morphine 08/15/2021 Penicillins 11/19/2017 Trouble breathing Sulfa Antibiotics 11/19/2017 Trouble breathing Medications Medication Sig Dispensed Refills Start Date End Date Status clopidogrel (PLAVIX) 75 MG tablet Take 1 tablet (75 mg total) by mouth daily. 0 Active atorvastatin (LIPITOR) tablet 80 mg Take 1 tablet (80 mg total) by mouth daily. 0 Active Fluticasone Furoate 50 MCG/ACT AEPB Inhale into the lungs. 0 Active Albuterol Sulfate 108 (90 Base) MCG/ACT AEPB Inhale into the lungs. 0 Active omeprazole (PriLOSEC) 40 MG capsule Take 1 capsule (40 mg total) by mouth daily. 0 Active Cholecalciferol 50 MCG (2000 UT) TABS Take by mouth. 0 Ac tive diphenhydrAMINE (Banophen) 25 MG tablet Take 1 tablet (25 mg total) by mouth 2 (two) times a day. 0 Active cyclobenzaprine (FLEXERIL) 10 MG tablet Take 1 tablet (10 mg total) by mouth 2 (two) times a day as needed for muscle spasms. 0 Active folic acid (FOLVITE) tablet 1 mg Take 1 tablet (1 mg total) by mouth daily. 0 Active traZODone (DESYREL) 100 MG tablet Take 1 tablet (100 mg total) by mouth every night at bedtime. 0 Active propranolol (INDERAL) 20 MG tablet Take 3 tablets (60 mg total) by mouth 2 (two) times a day. 0 Active meclizine (ANTIVERT) 25 MG tablet Take 1 tablet (25 mg total) by mouth 3 (three) times a day as needed. 0 Active fluticasone-vilante rol (BREO ELLIPTA) 100-25 MCG/ACT inhaler 1 inhalation. by Inhaled route daily. 0 Active albuterol (PROVENTIL) (2.5 MG/3ML) 0.083% nebulizer solution Take 3 mL (2.5 mg total) by nebulization every 6 (six) hours as needed for wheezing. 0 Active OLANZapine (ZyPREXA) 5 MG tablet Take 1 tablet (5 mg total) by mouth every night at bedtime. 0 Active DULoxetine (CYMBALTA) DR capsule 30 mg Take 1 capsule (30 mg total) by mouth daily. 0 Active DULoxetine (CYMBALTA) DR capsule 60 mg Take 1 capsule (60 mg total) by mouth daily. 0 Active Active Problems Problem Noted Date Diagnosed Date Iron deficiency anemia 11/06/2023 Social History Tobacco Use Types Packs/Day Years Used Date Smoking Tobacco: Former Cigarettes Q uit: 11/2022 Smokeless Tobacco: Never Alcohol Use Standard Drinks/Week Comments Yes 0 (1 standard drink = 0.6 oz pur e alcohol) Socially Sex and Gender Information Value Date Recorded Sex Assigned at Not on file Gender Identity Not on file Sexual Orientation Not on file Job Start Date Occupation Industry Not on file Not on file Not on file Last Filed Vital Signs Vital Sign Reading Time Taken Comments Blood Pressure 122/62 12/12/2023 2:00 PM EDT Pulse 71 12/12/2023 2:00 PM EDT Temperature 36.9 C (98.5 F) 12/12/2023 2:00 PM EDT Respiratory Rate 16 12/12/2023 2:00 PM EDT Oxygen Saturation 100% 12/12/2023 2:00 PM EDT Inhaled Oxygen Concentration - - Weight 64 kg (141 lb 1.5 oz) 11/27/2023 1:46 PM EDT Height - - Body Mass Index - - Plan of Treatment Health Maintenance Due Date Last Done Comments Hepatitis C Screening 1955 COVID-19 Vaccine (#1) 02/26/1956 Depression Screening 1968 Preventative Health Evaluation 1974 Colon Cancer Screening (Colonoscopy) 2001 Breast Cancer Screening (Mammogram) 2006 Shingrix-Zoster Vaccine (1 of 2) 2006 Fall Risk Assessment 2021 Osteoporosis Screening (DEXA Scan) 2021 Pneumococcal Vaccine (2 of 2 - PCV) 2021 01/02/2017 Influenza Vaccine (#1) 2024 3, 05/24/2021, 07/03/2018, Additional history exists DTap / Tdap / Td (2 - Td or Tdap) 01/02/2027 01/02/2017 RSV Adult > 60+ Yrs or (1 - 1-dose 75+ series) 08/27/2031 Hepatitis B Vaccines Aged Out No long er eligible based on patient's age to complete this topic RSV Ped < 20 months Aged Out No longe r eligible based on patient's age to complete this topic Care Teams Canvas Worker Relationship Specialty Start Date End Date Gurmeet Park MD PCP - General Internal Medicine 08/22/23
--- OUTSIDE RECORDS SUMMARY | 2024-11-05 15:00 | XMS_ITS | Clinical Summary ---
Author Organization [facility] Address [address] [place] [address] Phone Care Team Providers Care Hardwood Floor Layer Name Role Phone Gurmeet Park MD Primary Care Provider [phone] Allergies Active Allergy Reactions Criticality Noted Date [...] (02/21/2024): 01/2017 Anxiety attack Bipolar 2 disorder ([facility] V24, [facility] V28) Borderline personality disorder ([facility] V24, S/[facility] V28) 01/16/2018 Cataracts, bilateral 01/16/2018 Fibromyalgia 01/16/2018 Single kidney 11/19/2017 Overview (02/21/2024): One functioning kidney CAD (coronary artery disease) 11/19/2017 Overview (02/21/2024): Old PR COPD (chronic obstructive pu lmonary disease) ([facility] V24, [facility] V28) 11/19/2017 Depression 11/19/2017 Overview (02/21/2024): F/u psych at [facility] GERD (gastroesophageal reflux disease) 8 Encounters Date Type Department Care Team Description 09/18/2024 Telephone Adult Medicine [address] [phone] Gurmeet Park MD Medication Problem 08/07/2024 9:00 AM EDT Office Visit Adult Medicine [address] [phone] Rosemary Telles PA Routine history and physical [...] W/IMAG GUID BREAST BIOPSY 1977 Right PROCEDURE: OH BX BREAST W/DEVICE 1ST LESION ULTRASOUND GUID; COMMENT: neg Medical History Medical History Date Comments Osteoarthritis 11/19/2017 DX:Osteoarthriti s; COMMENT: Lumbar spine, Shoulders, Elbows, Hands, Knees, Feet History of breast cancer 1998 DX:Hist ory of breast cancer Multiple sclerosis ([facility] V24, [facility] V28) 11/19/2017 DX:Multiple sclerosis ([facility]) Depression 11/19/2017 DX:Depression; C OMMENT: SA in the past Lupus 11/19/2017 DX:Lupus Transverse myelitis ([facility] V24, [facility] V28) 11/19/2017 DX:Transverse myelitis ([facility]) Dystonia 11/19/2017 DX:Dystonia GERD (gastroesophageal reflux disease) 11/19/2017 DX:GERD (gastroesophageal reflux disease) Solitary kidney 11/19/2017 DX:Solitary kidn ey; COMMENT: One functioning kidney COPD (chronic obstructive pu lmonary disease) ([facility] V24, [facility] V28) 11/19/2017 DX:COPD (chronic o bstructive pulmonary disease) ([facility]) Osteopenia 11/19/2017 DX:Osteopenia; C OMMENT: 11/2016 lowest T-score in lumbar spine -2.0%; FRAX 13% CAD (coronary artery disease) 11/19/2017 DX :CAD (coronary artery disease); COMMENT: Old PR Thyroid nodule 01/16/2018 DX:Thyroid nodul e; COMMENT: 11/2016 U/S: small bilateral avascular nodules, largest measuring 0.8cm; left thyroid lobe nodules not previously seen Anxiety 01/16/2018 DX:Anxiety; COMM ENT: 01/2017 anxiety attack Cataracts, bilateral 01/16/2018 DX:Cataract s, bilateral Fibromyalgia 01/16/2018 DX:Fibromyalgia Bipolar 2 disorder ([facility] V24, [facility] V28) 01/16/2018 DX:Bipolar 2 disorder (HCC) Borderline [...] Description 12/25/2024 10:30 AM EDT Office Visit [facility] Hematology Oncology [address] [place] [phone] Destini Martinez PA [address] [place] [address] 01/26/2025 10:00 AM EDT Appointment Bone Density - [address] [phone] 02/19/2025 9:30 AM EST Office Visit Adult Medicine [address] [phone] Gurmeet Park MD [address] [place] [address] [phone] Health Maintenance Due Date Last Done Comments Zoster Vaccines (1 of 2) 08/27/1975 RSV Immunization Adult Patients (1 - Risk 60-74 years 1-dose series) 2016 Pneumococcal Vaccine: 50+ Years (2 of 2 - PCV) 01/02/2018 01/02/2017 COVID-19 Vaccine (3 - Mixed Product risk series) 03/21/2022 02/21/2022, 08/31/2021 Falls Risk Assessment 03/24/2022 Medicare Annual Wellness Visit 03/24/2022 Osteoporosis Screening (Bone Density Screening) 08/24/2022 08/24/2021 Depression Screening 04/15/2024 08/05/2023 Influenza Vaccine (#1) 2024 , 05/24/2021, 07/03/2018, Additional history exists Hypertension/CHF/CAD Annual BMP Blood Test 03/17/2025 03/17/2024, 08/05/2023 Social Influencers of Health Screening 08/07/2025 08/07/2024 [...] Comprehensive metabolic panel (03/17/2024 12:05 PM EST) Sodium 139 133 - 145 mmol/L LAB CHEMISTRY METHOD 03/17/2024 2:03 PM EST [facility] Potassium 4.3 3.5 - 5.5 mmol/L LAB CHEMISTRY METHOD 03/17/2024 2:03 PM EST [facility] Chloride 105 96 - 110 mmol/L LAB CHEMISTRY METHOD 03/17/2024 2:03 PM [facility] CO2 30 21 - 32 mmol/L LAB CHEMISTRY METHOD 03/17/2024 2:03 PM [facility] Anion Gap 4 3 - 11 LAB CHEMISTRY METHOD 03/17/2024 2:03 PM [facility] Glucose 81 70 - 100 mg/dL LAB CHEMISTRY METHOD 03/17/2024 2:03 PM [facility] BUN 15 5 - 25 mg/dL LAB CHEMISTRY METHOD 03/17/2024 2:03 PM [facility] Creatinine 1.02 0.50 - 1.10 mg/dL LAB CHEMISTRY METHOD 03/17/2024 2:03 PM [facility] eGFR 60 >=60 mL/min/1. 73m2 LAB CHEMISTRY METHOD 03/17/2024 2:03 PM [facility] Comment:Calculation based on the Chronic Kidney Disease Epidemiology Collaboration (CKD-EPI) equation refit without adjustment for race. BUN/Creatinine Ratio 14.7 LAB CHEMISTRY METHOD 03/17/2024 2:03 PM [facility] Calcium 9.0 8.5 - 10.5 mg/dL LAB CHEMISTRY METHOD 03/17/2024 2:03 PM [facility] AST (SGOT) 16 10 - 42 unit/L LAB CHEMISTRY METHOD 03/17/2024 2:03 PM [facility] ALT (SGPT) 16 10 - 60 unit/L LAB CHEMISTRY METHOD 03/17/2024 2:03 PM [facility] Alkaline Phosphatase 108 42 - 121 unit/L LAB CHEMISTRY METHOD 03/17/2024 2:03 PM [facility] Total Protein 6.8 6.0 - 8.0 g/dL LAB CHEMISTRY METHOD 03/17/2024 2:03 PM [facility] Albumin 3.5 3.2 - 5.0 g/dL LAB CHEMISTRY METHOD 03/17/2024 2:03 PM EST [facility] Total Bilirubin 0.3 0.0 - 1.4 mg/dL LAB CHEMISTRY METHOD 03/17/2024 2:03 PM EST [facility] Blood Venous blood specimen / Unknown Venipuncture / Unknown 03/17/2024 12:05 PM EST 03/17/2024 1:41 PM EST us Destini DIAZ LAB BLOOD ORDERABLES Final Re sult [facility]) [facility] [address] [place] [address], * SCREENING MAMMOGRAPHY BI 2-VIEW BREAST INC [...] of left breast cancer, status post lumpectomy [id number]. Study: SCREENING MAMMOGRAPHY BI 2-VIEW BREAST INC [...] Res ult * Depression Screening (08/05/2023) Pathologist [facility] Depression Screening abstracted Historical Provider HEALTH MAINTENANCE Final Result * Lipid panel (08/05/2023) Pathologist [facility] LDL/HDL Ratio 0 0 - 4 Triglycerides [...] (World Health Organization Fracture Risk Assessment) [facility] Department of Internal Medicine recommends using National [...] (World Health Organization Fracture Risk Assessment) [facility] Department of Internal Medicine recommendsusing National Osteoporosis [...] of fracture risk by FRAX. Flor DIAZ IMRuben DXA PROCEDURES Final Resu lt * Hepatitis C Screening (05/29/2019) Pathologist [facility] Hepatitis C Screening abstracted Historical Provider HEALTH MAINTENANCE Final Result * Colonoscopy (10/21/2018) Pathologist [facility] Colonoscopy no interpretation , abstracted Anatomical Region Laterality Modality Other Historical Provider HEALTH MAINTENANCE Final Result from Last 3 Months or Most Recently Relevant to Health Maintenance Insurance [facility] MEDIC[facility] Member Subscriber Plan / Payer (Ef fective 2023-Present) Name:Kasandra Nair Relation to Subscriber:Self Name:Kasandra Puentes Payer ID:[id number] Group ID:[id number] Type:Not on file Address: [place] [address] [address] [phone] Care Teams Hardwood Floor Layer Relationship Specialty Start Date End Date Gurmeet Park MD [address] [place] [address] [phone] PCP - General Internal Medicine 12/29/19
== END ==
LOC: HO.CARD 14:54
PROVIDERS: PCP Internal Medicine; Visit Provider Internal Medicine Cardiovascular Disease
DX: R06.00 Dyspnea, unspecified (principal)
CPT/HCPCS: 93306

== ENCOUNTER → 2024-11-05 14:57 | Outpatient (BNV) | payer OTHER, SELFPAY ==
[2023-08-15 15:05] VITALS: BP 114/62; BMI 21.8
== END ==
PROVIDERS: PCP Internal Medicine; Visit Provider Internal Medicine Cardiovascular Disease
DX: I51.89 Other ill-defined heart diseases (principal)
CPT/HCPCS: 93306

== ENCOUNTER 2024-12-18 09:44 | Outpatient (REF) | payer OTHER, SELFPAY ==
[2023-08-15 15:05] VITALS: BP 114/62; BMI 21.8
--- NOTE | 2024-12-18 09:49 | PFT_ITS ---
Flows: FEV1: 72 % of predicted at 1.51 L FVC: 81 % of predicted at 2.18 L FEV1/FVC: 69 % Bronchodilator response: Absent Volumes: Total lung capacity: 101 % of predicted at 4.73 L Residual volume: 141 % of predicted at 2.50 L Slow vital capacity: 77 % of predicted at 2.23 L Expiratory reserve volume: 43 % of predicted at 0.29 L Diffusion capacity: Mildly decreased Impression: Moderate obstructive ventilatory defect with no bronchodilator response. Increased residual volume suggests air trapping. Decreased expiratory reserve volume suggests extrathoracic restriction likely secondary to abdominal obesity. Decreased diffusion capacity suggests emphysema. MTDD
--- OUTSIDE RECORDS SUMMARY | 2024-12-18 10:32 | XMS_ITS | Clinical Summary ---
Author Organization [employer] Address [address] [place] [address] Care Team Providers Care Machine Taper Name Role Phone Unavailable Primary Care Provider Unavailabl e Social History Tobacco Use Types Packs/Day Years Used Date Smoking Tobacco: Never Assessed Comments Unknown Sex and Gender Information Value Date Recorded Sex Assigned at Female 02/12/2022 10:31 AM EDT Legal Sex Female 10:31 AM EDT Gender Identity Female 02/12/2022 10:31 AM EDT Sexual Orientation Straight 02/12/2022 10 :31 AM EDT Plan of Treatment Health Maintenance Due Date Last Done Comments CT Colonography 1955 Colonoscopy 1955 Colorectal Cancer Screening 1955 Depression Screening 1955 FIT DNA/Cologuard 1955 FIT 1955 FOBT 1955 Sigmoidoscopy 1955 Alcohol/Substance Use Screening 1968 Tobacco Screening 1968 Zoster Vaccines (1 of 2) 2006 Pneumococcal Vaccine: 50+ Years (2 of 2 - PCV) 01/02/2018 01/02/2017 Mammogram 05/28/2020 05/28/2018, 05/21/2017 COVID-19 Vaccine (2023-2 5 season) 2023 02/21/2022, 08/31/2021 Influenza Vaccine (#1) 2024 , 07/03/2018, 01/23/2017 DTaP/Tdap/Td Vaccines (2 - T d or Tdap) 01/02/2027 01/02/2017 RSV Patients and Patients Aged 60 years or older (1 - 1-dose 75+ series) 08/27/2031 Cervical Cancer Screening Discontinued HPV/Cotest Discontinued 03/20/2017 HIB Vaccines Aged Out No longer eligi [...] patient's age to complete this topic Meningococcal Vaccine Aged Out No ginette diallo eligible based on patient's age to complete this topic Pap Smear Discontinued RSV under 20 months Aged Out No longe r eligible based on patient's age to complete this topic Rotavirus Vaccines Aged Out No longer eligible based on patient's age to complete this topic Procedures Procedure Name Priority Date/Time Associated Diagnosis Comments BI MAMMOGRAM SCREENING BILATERAL Routine 05/28/2018 4:33 PM EST SRINIVASA HISTORICAL HPV MRNA E6/E7 Routine 03/20/2017 9:46 AM EST from Last 3 Months or Most Recently Relevant to Health Maintenance Results * 3D DIGITAL LISBETH SCR MAMMO 1 (05/28/2018 4:33 PM EST) Anatomical Region Laterality Modality Breast Bilateral Mammography 05/28/2018 4:33 PM EST Narrative 05/28/2018 4:35 PM EST Refer to the Notes tab for result details [facility] Procedure: 3D DIGITAL LISBETH SCR MAMMO 1 Procedure Note Provider, July, - 07/07/2022 Refer to the Notes tab for result details [facility] Procedure: 3D DIGITAL LISBETH SCR MAMMO 1 us Zeb Name MD CAO BI PROCEDURES Final Result * HPV mRNA E6/E7 (03/20/2017 9:46 AM EST) HPV mRNA E6/E7 Not Detected NOT DETECTED [facility] Comment: This test was performed using the APTIMA(R) HPV Assay ([employer] This assay detects E6/E7 viral messenger RNA (mRNA) from 14 high-risk HPV types (16,18,31,33,35,39,45,51, 52,56,58,59,66,68). For additional information please refer to: http://education.[employer]/faq/QMX209h3 (This link is being provided for informational/ educational purposes only.) Test Performed by [employer], [employer] [facility], [address] [place] [id number] Guido Telelz M.D., Ph.D., Director of Laboratories , [facility] [id number] Please note: Effective 12/26/2015, HPV testing will be performed using [employer]'s APTIMA test which targets mRNA. Detecting mRNA instead of DNA, as in older methods, offers significant improvements in specificity. 03/20/2017 9:46 AM EST us Sally Jacobo CNM HISTORICAL/NON ORDERABLE LABS Final Result [facility] [address] from Last 3 Months or Most Recently Relevant to Health Maintenance
--- OUTSIDE RECORDS SUMMARY | 2024-12-18 10:32 | XMS_ITS | Encounter Summary ---
Author Organization [employer] Address [address] [place] [address] Care Team Providers Care Freight Router Name Role Phone Unavailable Primary Care Provider [...]
--- OUTSIDE RECORDS SUMMARY | 2024-12-18 10:32 | XMS_ITS | Clinical Summary ---
Author Organization [facility] Address [address] [place] [address] Phone Care Team Providers Care Compliance Reviewer Name Role Phone Gurmeet Park MD Primary Care Provider [phone] Allergies Active Allergy Reactions Criticality Noted Date [...] (02/21/2024): 01/2017 Anxiety attack Bipolar 2 disorder ([facility] V24, [facility] V28) Borderline personality disorder ([facility] V24, S/[facility] V28) 01/16/2018 Cataracts, bilateral 01/16/2018 Fibromyalgia 01/16/2018 Single kidney 11/19/2017 Overview (02/21/2024): One functioning kidney CAD (coronary artery disease) 11/19/2017 Overview (02/21/2024): Old [place] COPD (chronic obstructive pu lmonary disease) ([facility] V24, [facility] V28) 11/19/2017 Depression 11/19/2017 Overview (02/21/2024): F/u psych at [facility] GERD (gastroesophageal reflux disease) 8 Encounters Date Type Department Care Team Description 09/18/2024 Telephone Adult Medicine [address] [address] Gurmeet Park MD from Last 3 Months Immunizations Name Administration [...] W/IMAG GUID BREAST BIOPSY 1977 Right PROCEDURE: TX BX BREAST W/DEVICE 1ST LESION ULTRASOUND GUID; COMMENT: neg Medical History Medical History Date Comments Osteoarthritis 11/19/2017 DX:Osteoarthriti s; COMMENT: Lumbar spine, Shoulders, Elbows, Hands, Knees, Feet History of breast cancer 1998 DX:Hist ory of breast cancer Multiple sclerosis ([facility] V24, [facility] V28) 11/19/2017 DX:Multiple sclerosis (HCC) Depression 11/19/2017 DX:Depression; C OMMENT: SA in the past Lupus 11/19/2017 DX:Lupus Transverse myelitis ([facility] V24, [facility] V28) 11/19/2017 DX:Transverse myelitis ([facility]) Dystonia 11/19/2017 DX:Dystonia GERD (gastroesophageal reflux disease) 11/19/2017 DX:GERD (gastroesophageal reflux disease) Solitary kidney 11/19/2017 DX:Solitary kidn ey; COMMENT: One functioning kidney COPD (chronic obstructive pu lmonary disease) ([facility] V24, [facility] V28) 11/19/2017 DX:COPD (chronic o bstructive pulmonary disease) ([facility]) Osteopenia 11/19/2017 DX:Osteopenia; C OMMENT: 11/2016 lowest T-score in lumbar spine -2.0%; FRAX 13% CAD (coronary artery disease) 11/19/2017 DX :CAD (coronary artery disease); COMMENT: Old [place] Thyroid nodule 01/16/2018 DX:Thyroid nodul e; COMMENT: 11/2016 U/S: small bilateral avascular nodules, largest measuring 0.8cm; left thyroid lobe nodules not previously seen Anxiety 01/16/2018 DX:Anxiety; COMM ENT: 01/2017 anxiety attack Cataracts, bilateral 01/16/2018 DX:Cataract s, bilateral Fibromyalgia 01/16/2018 DX:Fibromyalgia Bipolar 2 disorder ([facility] V24, [facility] V28) 01/16/2018 DX:Bipolar 2 disorder ([facility]) Borderline personality disor mika ([facility] V24, [facility] V28) 01/16/2018 DX:Borderline personality d isorder ([facility]) Tremors of nervous system 03/19/2018 DX:Gulshan mors [...] Description 12/25/2024 10:30 AM EDT Office Visit [facility] Hematology Oncology [address] [place] [address] Destini Martinez PA [address] [place] [address] 01/26/2025 10:00 AM EDT Appointment Bone Density - Lauren [address] [place] [address] 02/19/2025 9:30 AM EST Office Visit [facility] [place] [address] [place] [address] Gurmeet Park MD [address] [place] [phone] Health Maintenance Due Date Last Done Comments [...] mmol/L LAB CHEMISTRY METHOD 03/17/2024 2:03 PM [facility] Potassium 4.3 3.5 - 5.5 mmol/L LAB CHEMISTRY METHOD 03/17/2024 2:03 PM EST [facility] Chloride 105 96 - 110 mmol/L LAB CHEMISTRY METHOD 03/17/2024 2:03 PM [facility] CO2 30 21 - 32 mmol/L LAB CHEMISTRY METHOD 03/17/2024 2:03 PM [facility] Anion Gap 4 3 - 11 LAB CHEMISTRY METHOD 03/17/2024 2:03 PM [facility] Glucose 81 70 - 100 mg/dL LAB CHEMISTRY METHOD 03/17/2024 2:03 PM [facility] BUN 15 5 - 25 mg/dL LAB CHEMISTRY METHOD 03/17/2024 2:03 PM [facility] Creatinine 1.02 0.50 - 1.10 mg/dL LAB CHEMISTRY METHOD 03/17/2024 2:03 PM [facility] eGFR 60 >=60 mL/min/1. 73m2 LAB CHEMISTRY METHOD 03/17/2024 2:03 PM [facility] Comment:Calculation based on the Chronic Kidney Disease Epidemiology Collaboration (CKD-EPI) equation refit without adjustment for race. BUN/Creatinine Ratio 14.7 LAB CHEMISTRY METHOD 03/17/2024 2:03 PM [facility] Calcium 9.0 8.5 - 10.5 mg/dL LAB CHEMISTRY METHOD 03/17/2024 2:03 PM [facility] AST (SGOT) 16 10 - 42 unit/L LAB CHEMISTRY METHOD 03/17/2024 2:03 PM [facility] ALT (SGPT) 16 10 - 60 unit/L LAB CHEMISTRY METHOD 03/17/2024 2:03 PM [facility] Alkaline Phosphatase 108 42 - 121 unit/L LAB CHEMISTRY METHOD 03/17/2024 2:03 PM [facility] Total Protein 6.8 6.0 - 8.0 g/dL LAB CHEMISTRY METHOD 03/17/2024 2:03 PM [facility] Albumin 3.5 3.2 - 5.0 g/dL LAB CHEMISTRY METHOD 03/17/2024 2:03 PM [facility] Total Bilirubin 0.3 0.0 - 1.4 mg/dL LAB CHEMISTRY METHOD 03/17/2024 2:03 PM [facility] Blood Venous blood specimen / Unknown Venipuncture / Unknown 03/17/2024 12:05 PM EST 03/17/2024 1:41 PM EST us Destini DIAZ LAB BLOOD ORDERABLES Final Re sult [facility] ([facility]) [facility] [address] [place] [address], [place] [phone] * SCREENING MAMMOGRAPHY BI 2-VIEW BREAST INC [...] of left breast cancer, status post lumpectomy [id number]. Study: SCREENING MAMMOGRAPHY BI 2-VIEW BREAST INC [...] Res ult * Depression Screening (08/05/2023) Pathologist [facility] Depression Screening abstracted Historical Provider [...] (World Health Organization Fracture Risk Assessment) [facility] Department of Internal Medicine recommends using National [...] (World Health Organization Fracture Risk Assessment) [facility] Department of Internal Medicine recommendsusing National Osteoporosis [...] over-estimation of fracture risk by FRAX. Flor BENDER DXA PROCEDURES Final Resu lt * Hepatitis C Screening (05/29/2019) [facility] Hepatitis C Screening abstracted [facility] Provider HEALTH MAINTENANCE Final Result * Colonoscopy (10/21/2018) [facility] Colonoscopy no interpretation , abstracted Anatomical Region Laterality Modality Other [facility] Provider HEALTH MAINTENANCE Final Result from Last 3 Months or Most Recently Relevant to Health Maintenance Insurance [facility] Member Subscriber Plan / Payer (Ef fective 2023-Present) Name:Kasandra Nair Relation to Subscriber:Self Name:Kasandra Puentes Payer ID:[id number] Group ID:[id number] Type:Not on file Address: [address] [place] [phone] Care Teams Compliance Reviewer Relationship Specialty Start Date End Date Gurmeet Park MD [address] [place] [phone] PCP - General Internal Medicine 12/29/19
--- OUTSIDE RECORDS SUMMARY | 2024-12-18 10:32 | XMS_ITS | Clinical Summary ---
Author Organization [facility] Address [address] [place] [address] Care Team Providers Care Garbage Truck Dispatcher Name Role Phone Gurmeet Park MD Primary Care Provider [phone] Allergies Active Allergy Reactions Criticality Noted Date [...] age to complete this topic Care Teams Garbage Truck Dispatcher Relationship Specialty Start Date End Date Gurmeet Park MD PCP - General Internal Medicine 08/22/23
[2024-12-18 10:35] VITALS: PULSE 69; O2SAT 97
== END 2024-12-18 09:45 | disposition home or self-care (01) ==
LOC: HO.RESP 09:44
PROVIDERS: PCP Internal Medicine; Visit Provider Internal Medicine Cardiovascular Disease
DX: R06.00 Dyspnea, unspecified (principal)
CPT/HCPCS: 94010; 94640; 94727; 94729

== ENCOUNTER → 2024-12-18 09:49 | Outpatient (BNV) | payer OTHER, SELFPAY ==
[2023-08-15 15:05] VITALS: BP 114/62; BMI 21.8
== END ==
PROVIDERS: PCP Internal Medicine; Visit Provider Internal Medicine Pulmonary Disease
DX: J98.4 Other disorders of lung (principal)
CPT/HCPCS: 94060; 94727; 94729

== ENCOUNTER 2025-01-13 09:50 | Outpatient (AMB) | payer OTHER, SELFPAY ==
[2023-08-15 15:05] VITALS: BP 114/62; BMI 21.8
[2025-01-13 09:54] VITALS: BP 116/52; PULSE 61; BMI 22.8
--- NOTE | 2025-01-13 09:54 | A.OFFVIS_ITS ---
Vital Signs 01/13/25 09:54 Height 5 ft 2 in Weight 124 lb 12.506 oz BMI 22.8 BP 116/52 L Blood Pressure Location Lt brachial Position Sitting Pulse 61 Pulse Source Pulse Oximeter Intake Visit Reasons: 3 Month Follow Up Field Mechanic/Site Lead Required: Yes Field Mechanic/Site Lead Name: margaret/ aMry [id number]/ Elvira Accompanied by: Self / Same As Patient Allergies Penicillins (PENICILLINS) Allergy (Unknown, Verified 01/13/25 09:57) STOPS BREATHING shellfish derived (SHELLFISH DERIVED) Allergy (Unknown, Verified 01/13/25 09:57) SWELLING/THROAT CLOSES Sulfa (Sulfonamide Antibiotics) (SULFA (SULFONAMIDE ANTIBIOTICS)) Allergy (Unknown, Verified 01/13/25 09:57) THROAT CLOSES aripiprazole (From ABILIFY) Adverse Reaction (Severe, Verified 01/13/25 09:57) dystonic reaction morphine Adverse Reaction (Intermediate, Verified 01/13/25 09:57) Rash sulfa Allergy (Unknown, Uncoded 11/21/23 13:53) unknown Medication List - Last Reconciled 01/13/25 by Jewel Willis MD acetaminophen 650 mg (2 x 325 mg) PO Q6H PRN 30 days albuterol sulfate 1 - 2 vials inhalation Q4H PRN albuterol sulfate 90 mcg/actuation 2 puffs inhalation Q4H PRN atorvastatin 80 mg PO DAILY 90 days celecoxib (Celebrex) 200 mg PO BID 30 days cholecalciferol (vitamin D3) 50 mcg PO DAILY clopidogrel 75 mg PO DAILY cyclobenzaprine 1 tab PO BID PRN diphenhydramine HCl (Banophen) 1 cap PO Q12H PRN duloxetine (Cymbalta) 60 mg PO BEDTIME duloxetine (Cymbalta) 30 mg PO QAM ferrous sulfate (FeroSul) 325 mg PO DAILY fluticasone furoate-vilanterol 100-25 mcg/dose (Breo Ellipta) 1 ea inhalation DAILY fluticasone propionate 50 mcg/actuation 2 sprays intranasal DAILY folic acid 1 tab PO DAILY meclizine 25 mg PO DAILY PRN olanzapine 10 mg PO BEDTIME omeprazole 40 mg PO DAILY propranolol 60 mg PO BID trazodone 1 - 2 tabs PO BEDTIME PRN walker As directed HPI Comments Details: Pleasant 69-year-old female who is here for follow-up. She underwent cardiac catheterization in the past when she presented with NSTEMI. Cardiac catheterization shows severe mid right coronary artery and left anterior descending artery stenosis. We decided to treat the LAD with drug- eluting stent. subsequently she presented with chest pain again and was taken for cardiac catheterization and received drug-eluting stent to right coronary artery. This was in March 2021. She continues to smoke and was seen again for shortness of breath chest discomfort. She underwent stress testing when she was taken for cardiac catheterization. This showed severe InStent restenoses in the right coronary artery. This was treated with intravascular ultrasound guidance with drug-eluting stents. She is back for follow-up and is denying any significant chest discomfort. She is saying her breathing is little better but she still has shortness of breath which is mostly due to underlying COPD. We discussed about smoking cessation again. She is saying she is more energetic since she had the right coronary artery stenting. She returns for follow-up and is complaining of fatigue. She has no other symptoms currently. She is saying she has stop smoking. Taking medications regularly. 06/10/2023: She returns for follow-up. She has her right leg in a brace currently. She said she fell and fractured her leg and underwent surgery. She is doing well at this point. No chest discomfort shortness of breath. Since November she has stop smoking which I have congratulated her about. She is on dual antiplatelet therapy currently due to RCA stenting. 10/09/2023: She returns for follow-up. She has been getting some anemia and seeing hematology. She is on aspirin and Brilinta. Her PCI was in 04/03/2022. No obvious bleeding. No chest discomfort shortness of breath. She has quit smoking in 12/02/2022 and since then breathing has been quite stable. 10/05/2024: She is here for follow-up. She is saying she has been getting shortness of breath with activity for months. She also has some cough. She is saying that she has stopped smoking 2 years ago. She has never seen pulmonology before. No chest discomfort. Taking Plavix monotherapy at this point. 01/13/2025: She is here for follow-up. She had echocardiography which showed normal LVEF but regional wall motion abnormality could not be assessed. In the meantime she had an episode of chest pain. Apparently she ran out of her olanzapine and she was told that the chest pain was related to anxiety as she missed the medicine. She is saying that the chest pain was similar to her previous anginal symptoms. She only had 1 episode. [facility] Medical History (Updated 01/13/25 @ 10:20 by Jewel Willis MD) Cervical disc disease Depression Dystonia Multiple sclerosis Seizure disorder Stable angina NSTEMI (non-ST elevated myocardial infarction) CAD (coronary artery disease) Lupus Surgical History H/O right knee surgery S/P ORIF (open reduction internal fixation) fracture S/P coronary artery stent placement Status post cardiac catheterization History of partial mastectomy of left breast History of appendectomy Hx of cardiac cath Family History Mother Enlarged heart CAD (coronary artery disease) Sister Heart attack Brother Throat cancer Brother Lung cancer Social History Alcohol intake: current Alcohol intake frequency: does not drink Patient Tobacco Use Status: Former Tobacco user Tobacco use type: Cigarette Years Smoked: 25 +/- Current occupational status: retired Current occupation: left hand dominant Review of Systems Const Denies daytime sleepiness, Denies difficulty sleeping, Denies snoring, Denies stops breathing during sleep and Denies weakness Card Denies chest pain, Denies rapid heart rate, Denies irregular heart rhythm, Denies claudication, Denies leg edema, Denies lightheadedness, Denies palpitations, Reports dyspnea, Reports dyspnea on exertion, Denies orthopnea, Denies paroxysmal nocturnal dyspnea and Denies slow heart rate Resp Denies cough, Reports dyspnea, Reports dyspnea on exertion and Denies snoring GI Reports no additional complaints, Denies hematochezia, Denies change in stool character and Denies dyspepsia Musc Denies abnormal gait, Denies muscle weakness and Denies numbness Neuro Denies abnormal gait, Denies numbness and Denies weakness Endo Denies palpitations Physical Exam Vital Signs: Last Vital Signs Pulse 61 01/13/25 09:54 BP 116/52 L 01/13/25 09:54 BMI result Body Mass Index 22.8 GENERAL APPEARANCE: in no acute distress, pleasant. NECK: no carotid bruit, no jugular venous distention. SKIN: no suspicious lesions, warm and dry. HEART: no murmurs, regular rate and rhythm. LUNGS: clear to auscultation bilaterally. ABDOMEN: soft, nontender. EXTREMITIES: no edema. PERIPHERAL PULSES: equal. NEUROLOGIC: No gross deficits, AAO X 3 Assessment & Plan Assessment & Plan (1) Dyspnea: Code(s): R06.00 - Dyspnea, unspecified Category: Medical (2) Chest pain: Code(s): R07.9 - Chest pain, unspecified Category: Medical Plan Pleasant 69 year female who is here for follow-up. She has background history of coronary disease with previous RCA PCI and LAD. She is currently on Plavix monotherapy. She was complaining of dyspnea on exertion on last visit and we repeated echocardiography. Now she returns and had episode of chest pain. I am referring her for stress MIBI. If abnormal then we will proceed with angiography. Continue same medications for now. Blood pressure well controlled. Thank you for allowing me to participate in the care of your patient. Please feel free to contact me if you have any questions. Orders: Orders NM cardiolite stress test Today R07.9 - Chest pain, unspecified CA stress test Today R07.9 - Chest pain, unspecified Coding Level of Care Code Est Pt Level 4 (00799) Diagnoses Dyspnea R06.00 Chest pain R07.9
--- OUTSIDE RECORDS SUMMARY | 2025-01-13 10:47 | XMS_ITS | Clinical Summary ---
Author Organization [facility] Address [address] [place] [address] Care Team Providers Care Provider Enrollment Specialist Name Role Phone Gurmeet Park MD Primary Care Provider [phone] Allergies Active Allergy Reactions Criticality Noted Date [...] age to complete this topic Care Teams Provider Enrollment Specialist Relationship Specialty Start Date End Date Gurmeet Park MD PCP - General Internal Medicine 08/22/23
--- OUTSIDE RECORDS SUMMARY | 2025-01-13 10:47 | XMS_ITS | Encounter Summary ---
Author Organization [employer] Address [address] [place] [address] Care Team Providers Care Cheese Grader Name Role Phone Unavailable Primary Care Provider [...]
--- OUTSIDE RECORDS SUMMARY | 2025-01-13 10:47 | XMS_ITS | Clinical Summary ---
Author Organization [facility] Address [address] [place] [address] Phone Care Team Providers Care Vessel Liner Name Role Phone Gurmeet Park MD Primary Care Provider [phone] Allergies Active Allergy Reactions Criticality Noted Date [...] (02/21/2024): 01/2017 Anxiety attack Bipolar 2 disorder ([facility] V24, [facility] V28) Borderline personality disorder ([facility] V24, S/[facility] V28) 01/16/2018 Cataracts, bilateral 01/16/2018 Fibromyalgia 01/16/2018 Single kidney 11/19/2017 Overview (02/21/2024): One functioning kidney CAD (coronary artery disease) 11/19/2017 Overview (02/21/2024): Old [place] COPD (chronic obstructive pu lmonary disease) ([facility] V24, [facility] V28) 11/19/2017 Depression 11/19/2017 Overview (02/21/2024): F/u psych at [facility] GERD (gastroesophageal reflux disease) 8 Immunizations Immunization Administration Dates Next Due Influenza Quadravalent, MDCK [...] W/IMAG GUID BREAST BIOPSY 1977 Right PROCEDURE: WI BX BREAST W/DEVICE 1ST LESION ULTRASOUND GUID; COMMENT: neg Medical History Medical History Date Comments Osteoarthritis 11/19/2017 DX:Osteoarthriti s; COMMENT: Lumbar spine, Shoulders, Elbows, Hands, Knees, Feet History of breast cancer 1998 DX:Hist ory of breast cancer Multiple sclerosis 11/19/2017 DX:Multiple s clerosis ([facility]) Depression 11/19/2017 DX:Depression; C OMMENT: SA in the past Lupus 11/19/2017 DX:Lupus Transverse myelitis ([facility] V24, [facility] V28) 11/19/2017 DX:Transverse myelitis ([facility]) Dystonia 11/19/2017 DX:Dystonia GERD (gastroesophageal reflux disease) 11/19/2017 DX:GERD (gastroesophageal reflux disease) Solitary kidney 11/19/2017 DX:Solitary kidn ey; COMMENT: One functioning kidney COPD (chronic obstructive pu lmonary disease) ([facility] V24, [facility] V28) 11/19/2017 DX:COPD (chronic o bstructive pulmonary disease) ([facility]) Osteopenia 11/19/2017 DX:Osteopenia; C OMMENT: 11/2016 lowest T-score in lumbar spine -2.0%; FRAX 13% CAD (coronary artery disease) 11/19/2017 DX :CAD (coronary artery disease); COMMENT: Old AL Thyroid nodule 01/16/2018 DX:Thyroid nodul e; COMMENT: 11/2016 U/S: small bilateral avascular nodules, largest measuring 0.8cm; left thyroid lobe nodules not previously seen Anxiety 01/16/2018 DX:Anxiety; COMM ENT: 01/2017 anxiety attack Cataracts, bilateral 01/16/2018 DX:Cataract s, bilateral Fibromyalgia 01/16/2018 DX:Fibromyalgia Bipolar 2 disorder ([facility] V24, [facility] V28) 01/16/2018 DX:Bipolar 2 disorder ([facility]) Borderline personality disor mika ([facility] V24, [facility] V28) 01/16/2018 DX:Borderline personality d isorder ([facility]) Tremors of nervous system 03/19/2018 DX:Gulshan mors [...] Care Team (Late st Contact Info) Description 01/26/2025 10:00 AM EDT Appointment Bone Density [address] [phone] 02/19/2025 9:30 AM EST Office Visit Adult Medicine [address] [phone] Gurmeet Park MD [address] [place] [address] Health Maintenance Due Date Last Done Comments [...] Screening 04/15/2024 08/05/2023 Influenza Vaccine (#1) 2024 3, 05/24/2021, 07/03/2018, Additional history exists Hypertension/CHF/CAD Annual [...] mmol/L LAB CHEMISTRY METHOD 03/17/2024 2:03 PM [facility] Potassium 4.3 3.5 - 5.5 mmol/L LAB CHEMISTRY METHOD 03/17/2024 2:03 PM [facility] Chloride 105 96 - 110 mmol/L LAB CHEMISTRY METHOD 03/17/2024 2:03 PM [facility] CO2 30 21 - 32 mmol/L LAB CHEMISTRY METHOD 03/17/2024 2:03 PM [facility] Anion Gap 4 3 - 11 LAB CHEMISTRY METHOD 03/17/2024 2:03 PM [facility] Glucose 81 70 - 100 mg/dL LAB CHEMISTRY METHOD 03/17/2024 2:03 PM [facility] BUN 15 5 - 25 mg/dL LAB CHEMISTRY METHOD 03/17/2024 2:03 PM [facility] Creatinine 1.02 0.50 - 1.10 mg/dL LAB CHEMISTRY METHOD 03/17/2024 2:03 PM [facility] eGFR 60 >=60 mL/min/1. 73m2 LAB CHEMISTRY METHOD 03/17/2024 2:03 PM [facility] Comment:Calculation based on the Chronic Kidney Disease Epidemiology Collaboration (CKD-EPI) equation refit without adjustment for race. BUN/Creatinine Ratio 14.7 LAB CHEMISTRY METHOD 03/17/2024 2:03 PM [facility] Calcium 9.0 8.5 - 10.5 mg/dL LAB CHEMISTRY METHOD 03/17/2024 2:03 PM [facility] AST (SGOT) 16 10 - 42 unit/L LAB CHEMISTRY METHOD 03/17/2024 2:03 PM [facility] ALT (SGPT) 16 10 - 60 unit/L LAB CHEMISTRY METHOD 03/17/2024 2:03 PM [facility] Alkaline Phosphatase 108 42 - 121 unit/L LAB CHEMISTRY METHOD 03/17/2024 2:03 PM [facility] Total Protein 6.8 6.0 - 8.0 g/dL LAB CHEMISTRY METHOD 03/17/2024 2:03 PM [facility] Albumin 3.5 3.2 - 5.0 g/dL LAB CHEMISTRY METHOD 03/17/2024 2:03 PM [facility] Total Bilirubin 0.3 0.0 - 1.4 mg/dL LAB CHEMISTRY METHOD 03/17/2024 2:03 PM [facility] Blood Venous blood specimen / Unknown Venipuncture / Unknown 03/17/2024 12:05 PM EST 03/17/2024 1:41 PM EST us Destini DIAZ LAB BLOOD ORDERABLES Final Re sult [facility] [address] [place] [address], * SCREENING MAMMOGRAPHY BI 2-VIEW BREAST INC [...] of left breast cancer, status post lumpectomy [id number]. Study: SCREENING MAMMOGRAPHY BI 2-VIEW BREAST INC [...] Res ult * Depression Screening (08/05/2023) Pathologist [facility] Depression Screening abstracted Historical Provider HEALTH MAINTENANCE Final Result * Lipid panel (08/05/2023) LDL/HDL Ratio 0 0 - 4 Triglycerides 82 0 - 150 mg/dL Cholesterol 113 0 - 200 mg/dL HDL 56 >=40 mg/dL LDL Cholesterol 41 0 - 100 mg/dL Blood Venous blood specimen / Unknown Result [facility] Historical Provider LAB BLOOD ORDERABLES Kym l [...] (World Health Organization Fracture Risk Assessment) [facility] Department of Internal Medicine recommends using [...] (World Health Organization Fracture Risk Assessment) [facility] Department of Internal Medicine recommendsusing National [...] Resu lt * Hepatitis C Screening (05/29/2019) [facility] Hepatitis C Screening abstracted Result [facility] Historical Provider HEALTH MAINTENANCE Final Result * Colonoscopy (10/21/2018) [facility] Colonoscopy no interpretation , abstracted Anatomical Region Laterality Modality Other Result [facility] Historical Provider HEALTH MAINTENANCE Final Result from Last 3 Months or Most Recently Relevant to Health Maintenance Insurance [employer] Member Subscriber Plan / Payer (Ef fective 2023-Present) Name:Kasandra Nair Relation to Subscriber:Self Name:Kasandra Puentes Payer ID:[id number] Group ID:[id number] Type:Not on file Address: [place] [address] [address] [phone] Care Teams Vessel Liner Relationship Specialty Start Date End Date Gurmeet Park MD [address] [place] [phone] PCP - General Internal Medicine 12/29/19
--- OUTSIDE RECORDS SUMMARY | 2025-01-13 10:47 | XMS_ITS | Clinical Summary ---
Author Organization [employer] Address [address] [place] [address] Care Team Providers Care Associate Relations Specialist Name Role Phone Unavailable Primary Care Provider [...] 01/02/2017 Mammogram 05/28/2020 05/28/2018, 05/21/2017 COVID-19 Vaccine (3 - 2024-2 6 season) 2024 02/21/2022, 08/31/2021 Influenza Vaccine (#1) 2024 , [...] HPV mRNA E6/E7 Not Detected NOT DETECTED [facility] Comment: This test was performed using the APTIMA(R) HPV Assay ([employer] This assay detects E6/E7 viral messenger RNA (mRNA) from 14 high-risk HPV types (16,18,31,33,35,39,45,51, 52,56,58,59,66,68). For additional information please refer to: http://education.AddSearch/faq/IGJ031i9 (This link is being provided for informational/ educational purposes only.) Test Performed by [employer], [employer] [facility], [address] [place] [id number] Guido Tellez M.D., Ph.D., Director of Laboratories , [facility] [id number] Please note: Effective 12/26/2015, HPV testing will be performed using [employer]'s APTIMA test which targets mRNA. Detecting mRNA instead of DNA, as in older methods, offers significant improvements in specificity. 03/20/2017 9:46 AM EST us Sally Jacobo CNM HISTORICAL/NON ORDERABLE LABS Final Result [facility] [address] from Last 3 Months or Most Recently Relevant to Health Maintenance
== END 2025-01-13 10:21 | disposition home or self-care (01) ==
LOC: HO.HCS 09:50
PROVIDERS: PCP Internal Medicine; Visit Provider Internal Medicine Cardiovascular Disease
DX: R06.00 Dyspnea, unspecified (principal); R07.9 Chest pain, unspecified
CPT/HCPCS: 99214

== ENCOUNTER → 2025-01-13 09:50 | Outpatient (BNVA) | payer OTHER, SELFPAY ==
[2023-08-15 15:05] VITALS: BP 114/62; BMI 21.8
== END ==
PROVIDERS: PCP Internal Medicine; Visit Provider Internal Medicine Cardiovascular Disease
DX: R06.09 Other forms of dyspnea (principal); R07.9 Chest pain, unspecified; Z79.01 Long term (current) use of anticoagulants
CPT/HCPCS: 99212

== ENCOUNTER 2025-02-11 10:55 | Outpatient (AMB) | payer OTHER, SELFPAY ==
[2023-08-15 15:05] VITALS: BP 114/62; BMI 21.8
--- NOTE | 2025-02-11 10:57 | MHC.OFFVIS ---
Intake Visit Reasons: 6 months tremors Collections Agent Required: Yes Collections Agent Name: #[id number] Allergies Penicillins (PENICILLINS) Allergy (Unknown, Verified 02/11/25 11:02) STOPS BREATHING shellfish derived (SHELLFISH DERIVED) Allergy (Unknown, Verified 02/11/25 11:02) SWELLING/THROAT CLOSES Sulfa (Sulfonamide Antibiotics) (SULFA (SULFONAMIDE ANTIBIOTICS)) Allergy (Unknown, Verified 02/11/25 11:02) THROAT CLOSES aripiprazole (From ABILIFY) Adverse Reaction (Severe, Verified 02/11/25 11:02) dystonic reaction morphine Adverse Reaction (Intermediate, Verified 02/11/25 11:02) Rash sulfa Allergy (Unknown, Uncoded 02/11/25 11:02) unknown Medication List - Last Reconciled 02/11/25 by Trang Woody CNP acetaminophen 650 mg (2 x 325 mg) PO Q6H PRN 30 days albuterol sulfate 1 - 2 vials inhalation Q4H PRN albuterol sulfate 90 mcg/actuation 2 puffs inhalation Q4H PRN atorvastatin 80 mg PO DAILY 90 days celecoxib (Celebrex) 200 mg PO BID 30 days cholecalciferol (vitamin D3) 50 mcg PO DAILY clopidogrel 75 mg PO DAILY cyclobenzaprine 1 tab PO BID PRN diphenhydramine HCl (Banophen) 1 cap PO Q12H PRN duloxetine (Cymbalta) 60 mg PO BEDTIME duloxetine (Cymbalta) 30 mg PO QAM ferrous sulfate (FeroSul) 325 mg PO DAILY fluticasone furoate-vilanterol 100-25 mcg/dose (Breo Ellipta) 1 ea inhalation DAILY fluticasone propionate 50 mcg/actuation 2 sprays intranasal DAILY folic acid 1 tab PO DAILY meclizine 25 mg PO DAILY PRN olanzapine 10 mg PO BEDTIME omeprazole 40 mg PO DAILY propranolol 60 mg PO BID trazodone 1 - 2 tabs PO BEDTIME PRN walker As directed HPI Comments Details: She was doing okay. Tremors were controlled with propranolol. No functional impairment. No difficulty eating, drinking, or swallowing. No falls. Sleep was okay. She had R knee surgery in 04/2023 after a fall. She is taking inhalers for asthma after stopping medical marijuana. Was hospitalized for depression at . She has had problems with coordination since age 25 and was diagnosed as having MS at age 39 in [place]. She is also been diagnosed as having dystonia where her hands and feet curling up for 20-60 min. 3 or 4 times a week and she sometimes loses consciousness. There've also been called seizures. She also has a diagnosis of having transverse myelitis and says that she was paralyzed for times from her neck down and on one occasion was paralyzed for a year and a half. She also has major depression and a history of lupus. Sh did not have any neurological workup for 5 years. She was last treated with epidural injections in [place] for her neck pain. Has a herniated disc in neck according to patient. [facility] Medical History (Updated 02/11/25 @ 11:02 by Trang Woody CNP) Cervical disc disease Depression Dystonia Multiple sclerosis Seizure disorder Stable angina NSTEMI (non-ST elevated myocardial infarction) CAD (coronary artery disease) Lupus Surgical History H/O right knee surgery S/P ORIF (open reduction internal fixation) fracture S/P coronary artery stent placement Status post cardiac catheterization History of partial mastectomy of left breast History of appendectomy Hx of cardiac cath Family History Mother Enlarged heart CAD (coronary artery disease) Sister Heart attack Brother Throat cancer Brother Lung cancer Social History Alcohol intake: current Alcohol intake frequency: does not drink Patient Tobacco Use Status: Former Tobacco user Tobacco use type: Cigarette Years Smoked: 25 +/- Current occupational status: retired Current occupation: left hand dominant Review of Systems Const Denies chills, Denies daytime sleepiness, Denies difficulty sleeping, Denies fatigue, Denies fever(s), Denies frequent falls, Denies headache(s), Denies increased appetite, Denies poor appetite, Denies snoring, Denies weakness, Denies weight gain and Denies weight loss Eyes Denies loss of vision ENT Denies vertigo, Denies dizziness, Denies headache(s) and Denies neck pain Card Denies chest pain at rest, Denies chest pain with activity, Denies syncope, Denies leg edema, Denies palpitations, Denies dyspnea and Denies dyspnea on exertion Resp Denies cough, Denies dyspnea, Denies dyspnea on exertion and Denies snoring GI Denies abdominal pain, Denies constipation, Denies heartburn, Denies diarrhea and Denies nausea Denies urinary frequency, Denies urinary incontinence and Denies urinary urgency Musc Denies abnormal gait, Denies back pain, Denies myalgias, Denies arthralgias, Denies neck pain, Denies numbness and Denies tingling Neuro Denies abnormal gait, Denies vertigo, Denies dizziness, Denies syncope, Denies frequent falls, Denies headache(s), Denies lack of coordination, Denies loss of vision, Denies memory loss, Denies numbness, Denies Other visual disturbances, Denies restless legs, Denies seizure-like activity, Denies tingling, Denies paresthesias, Reports tremor(s) and Denies weakness Psych Denies anxiety, Denies depression, Denies auditory hallucinations, Denies memory loss and Denies visual hallucinations Endo Denies fatigue and Denies palpitations Physical Exam Const Other: General Appearance:? normal, in no acute distress. Heart:? S1, S2 normal, no murmurs. Lungs:? clear anteriorly and posteriorly. Musculoskeletal:? normal. Extremities:? no edema. Psych:? alert, oriented, cognitive function intact, cooperative with exam. Neuro Other: Abnormal Neurological Findings:?Mild tremors in the upper extremities on extended position and FTN. Equivocal plantar responses. Mental Status: alert and oriented X 3. Normal attention, orientation, memory, and affect. Cranial Nerves: Pupils are equal, round, and reactive to light. External ocular muscles are intact. Visual skinner are full, no ptosis. Face is symmetrical, no facial weakness or droop. Facial sensations are normal. Tongue protrudes in midline. Palate elevates symmetrically. Shoulder shrugging is normal Motor Examination: As above. Sensory Exam: Normal light touch, temperature, pinprick, vibration, and joint-position sensations. Rhomberg sign is absent. Coordination: No ataxia. No titubation. Gait Exam: Within normal limits. Cerebellar Signs: Eklqni-ag-hate with tremor. Extrapyramidal System: Tremor as above. No rigidity with normal facial expressions. No bradykinesia. No bradyphrenia. Normal arm swing and posture. No propulsion or retropulsion. Speech: Normal. Results Reviewed Results Reviewed: MELISSA mild abnormality bilaterally. LSER absent wave forms. RODNEY and USER WNL. . Possible conversion reaction. Paucity of hard findings for MS 01/29/17 MRI with and without Francisco did not show evidence of MS. Labs normal. Assessment & Plan Assessment & Plan (1) Tremor: Code(s): R25.1 - Tremor, unspecified Category: Medical Plan: Continue propranolol 60mg 1 tablet twice a day. (2) Cervical disc disease: Code(s): M50.90 - Cervical disc disorder, unspecified, unspecified cervical region Category: Medical Plan . Medications: Changed From propranolol 60 mg PO BID To propranolol 60 mg PO BID 180 tabs 1RF 90 days Coding Level of Care Code Est Pt Level 4 (09182) Diagnoses Tremor R25.1 Cervical disc disease M50.90
--- OUTSIDE RECORDS SUMMARY | 2025-02-11 13:38 | XMS_ITS | Clinical Summary ---
Author Organization [facility] Address [address] [place] [address] Care Team Providers Care Interior Block Wirer Name Role Phone Gurmeet Park MD Primary Care Provider [phone] Allergies Active Allergy Reactions Criticality Noted Date [...] age to complete this topic Care Teams Interior Block Wirer Relationship Specialty Start Date End Date Gurmeet Park MD PCP - General Internal Medicine 08/22/23
--- OUTSIDE RECORDS SUMMARY | 2025-02-11 13:38 | XMS_ITS | Clinical Summary ---
Author Organization [facility] Address [address] [place] [address] Phone Care Team Providers Care Game Master Name Role Phone Gurmeet Park MD Primary Care Provider [phone] Allergies Active Allergy Reactions Criticality Noted Date Comments Morphine 08/15/2021 Penicillins 11/19/2017 Trouble breathing Shellfish Containing Products Anaphylaxis,Rash High 01/01/2024 Dermatitis Sulfa (Sulfonamide Antibiotics) 11/19/2017 Trouble breathing Medications clopidogreL (PLAVIX) 75 mg tablet Take 1 tablet (75 mg total) by mouth 1 (one) time each day. 4 Active omeprazole (PriLOSEC) [address] capsule Take 1 capsule (40 mg total) by mouth 1 (one) time each day. Active propranoloL (INDERAL) 60 mg tablet Take 1 tablet (60 mg total) by mouth 2 (two) times a day. 4 Active traZODone (DESYREL) 100 mg tablet Take 1 tablet (100 mg total) by mouth at bedtime as needed. at bedtime for sleep Active OLANZapine (ZyPREXA) 7.5 mg tablet 4 Active DULoxetine (CYMBALTA) [address] capsule Take 1 capsule (60 mg total) by mouth 1 (one) time each day in the evening. Active fluticasone furoate (ARNUITY ELLIPTA) 50 mcg/actuation blister with device inhaler Inhale by mouth. Active cholecalcifero l (VITAMIN D-3) 50 mcg (2,000 unit) tablet Take 1 tablet (2,000 Units total) by mouth 1 (one) time each day. 4 Active cyclobenzaprin e (FLEXERIL) 10 mg tablet Take 1 tablet (10 mg total) by mouth 2 (two) times a day if needed for muscle spasms. Active albuterol 2.5 mg /3 mL (0.083 %) nebulizer solution 3 mL (2.5 mg total) every 6 hours as needed. 1 Active albuterol sulfate 90 mcg/actuation aerosol powdr breath activated Inhale by mouth. Active meclizine (ANTIVERT) 25 mg tablet Take 1 tablet (25 mg total) by mouth 3 times daily as needed. Active folic acid (FOLVITE) 1 mg tablet TAKE 1 TABLET BY MOUTH DAILY 90 tablet 5 Active docusate sodium (COLACE) 100 mg capsule TAKE 1 CAPSULE BY MOUTH DAILY 90 capsule 1 5 Active atorvastatin (LIPITOR) 80 mg tablet TAKE 1 TABLET BY MOUTH DAILY 90 tablet 5 Active Banophen 25 mg capsule TAKE 1 CAPSULE BY MOUTH EVERY 12 HOURS 180 capsule 5 Active FeroSuL 325 mg (65 mg iron) tablet TAKE 1 TABLET BY MOUTH DAILY 90 tablet 5 Active FeroSuL 325 mg (65 mg iron) tablet TAKE 1 TABLET BY MOUTH ONCE DAILY 90 tablet 1 5 01/30/20 25 Discontinued Active Problems Problem Noted Date Diagnosed Date Osteopenia 01/26/2025 Essential tremor 02/01/2023 Decreased libido 08/15/2021 Overview [...] (02/21/2024): 01/2017 Anxiety attack Bipolar 2 disorder ([facility] V24, [facility] V28) Borderline personality disorder ([facility] V24, [facility] V28) 01/16/2018 Cataracts, bilateral 01/16/2018 Fibromyalgia 01/16/2018 Single kidney 11/19/2017 Overview (02/21/2024): One functioning kidney CAD (coronary artery disease) 11/19/2017 Overview (02/21/2024): Old [place] COPD (chronic obstructive pu lmonary disease) ([facility] V24, [facility] V28) 11/19/2017 Depression 11/19/2017 Overview (02/21/2024): F/u psych at [facility] GERD (gastroesophageal reflux disease) 8 Encounters Date Type Department Care Team Description 01/26/2025 9:20 AM EDT - 01/26/2025 11:59 PM EDT Hospital Encounter Bone Density [address] [phone] Osteopenia, unspecified location Discharge Disposition: Home or Self Care 01/26/2025 Results Follow-Up Adult Medicine [address] [phone] Rosemary Telles PA from Last 3 Months Immunizations Immunization Administration Dates Next Due Influenza [...] W/IMAG GUID BREAST BIOPSY 1977 Right PROCEDURE: MO BX BREAST W/DEVICE 1ST LESION ULTRASOUND GUID; COMMENT: neg Medical History Medical History Date Comments Osteoarthritis 11/19/2017 DX:Osteoarthriti s; COMMENT: Lumbar spine, Shoulders, Elbows, Hands, Knees, Feet History of breast cancer 1998 DX:Hist ory of breast cancer Multiple sclerosis 11/19/2017 DX:Multiple s clerosis (HCC) Depression 11/19/2017 DX:Depression; C OMMENT: SA in the past Lupus 11/19/2017 DX:Lupus Transverse myelitis ([facility] V24, [facility] V28) 11/19/2017 DX:Transverse myelitis ([facility]) Dystonia 11/19/2017 DX:Dystonia GERD (gastroesophageal reflux disease) 11/19/2017 DX:GERD (gastroesophageal reflux disease) Solitary kidney 11/19/2017 DX:Solitary kidn ey; COMMENT: One functioning kidney COPD (chronic obstructive pu lmonary disease) ([facility] V24, [facility] V28) 11/19/2017 DX:COPD (chronic o bstructive pulmonary disease) ([facility]) Osteopenia 11/19/2017 DX:Osteopenia; C OMMENT: 11/2016 lowest T-score in lumbar spine -2.0%; FRAX 13% CAD (coronary artery disease) 11/19/2017 DX :CAD (coronary artery disease); COMMENT: Old NV Thyroid nodule 01/16/2018 DX:Thyroid nodul e; COMMENT: 11/2016 U/S: small bilateral avascular nodules, largest measuring 0.8cm; left thyroid lobe nodules not previously seen Anxiety 01/16/2018 DX:Anxiety; COMM ENT: 01/2017 anxiety attack Cataracts, bilateral 01/16/2018 DX:Cataract s, bilateral Fibromyalgia 01/16/2018 DX:Fibromyalgia Bipolar 2 disorder ([facility] V24, [facility] V28) 01/16/2018 DX:Bipolar 2 disorder (HCC) Borderline personality disor mika ([facility] V24, [facility] V28) 01/16/2018 DX:Borderline personality d isorder (HCC) [...] Care Team (Late st Contact Info) Description 02/19/2025 9:30 AM EST Office Visit Adult Medicine [address] [phone] Gurmeet Park MD [address] [place] [phone] Health Maintenance Due Date Last Done Comments Zoster Vaccines (1 of 2) 08/27/1975 RSV Immunization Adult Patients (1 - Risk 50-74 years 1-dose series) 2006 Pneumococcal Vaccine: 50+ Years (2 of 2 - PCV) 01/02/2018 01/02/2017 COVID-19 Vaccine (3 - Mixed Product risk series) 03/21/2022 02/21/2022, 08/31/2021 Falls Risk Assessment 03/24/2022 Medicare Annual Wellness Visit 03/24/2022 Depression Screening 04/15/2024 08/05/2023 Influenza Vaccine (#1) 2024 3, 05/24/2021, 07/03/2018, Additional history exists Hypertension/CHF/CAD Annual BMP Blood Test 03/17/2025 03/17/2024, 08/05/2023 Social Influencers of Health Screening 08/07/2025 08/07/2024 Breast Cancer Screening 09/15/2025 09/16/19 24, 09/16/2023, 08/31/2022, Additional history exists Osteoporosis Screening (Bone Density Screening) 01/26/2026 01/26/2025, 08/24/2021 DTaP,Tdap,and Td Vaccines (2 - Td or [...] Procedure Name Priority Date/Time Associated Diagnosis Comments BD BONE DENSITY DXA AXIAL SKELETON Routine 01/26/2025 9:38 AM EDT Osteopenia, unspecified location COMPREHENSIVE METABOLIC PANEL Routine 03/17/2024 12:05 PM EST Iron deficiency anemia, unspecified Chronic kidney disease, unspecified SCREENING MAMMOGRAPHY BI 2-VIEW BREAST INC CAD Routine 09/16/2023 9:59 AM EDT Personal history of malignant neoplasm of breast Encounter for screening mammogram for malignant neoplasm of breast HM DEPRESSION SCREENING Routine 08/05/2023 LIPID PANEL Routine 08/05/2023 HEPATITIS C SCREENING Routine 05/29/2019 HM COLONOSCOPY Routine 10/21/2018 from Last 3 Months or Most Recently Relevant to Health Maintenance Results * BD Bone Density DXA Axial Skeleton (01/26/2025 9:38 AM EDT) Anatomical Region Laterality Modality Wrist, Hip, L-spine Bone Densito metry 01/26/2025 9:55 AM EDT Impressions 01/26/2025 9:57 AM EDT Osteopenia by WHO criteria. This patient has a 5.8% risk of major osteoporotic fracture and a 0.9% risk of hip fracture over the next 10 years. (World Health Organization Fracture Risk Assessment) [facility] Department of Internal Medicine recommends using National Osteoporosis Foundation (NOF) guidelines in treatment decisions related to osteoporosis. NOF guidelines suggest considering treatment for postmenopausal women and men aged 50 or older presenting with the following: History of hip or vertebral fracture. T-score = -2.5 (DXA) at the femoral neck, total hip, or spine, after appropriate evaluation to exclude secondary causes. Low bone mass (T-score between -1.0 and -2.5 at the femoral neck or spine) AND a 10-year probability of a hip fracture = 3% OR a 10-year probability of a major osteoporosis-related fracture = 20% based on the [place]-adapted WHO algorithm Please note that all treatment decisions require clinical judgment and consideration of individual patient factors, including patient preferences, co-morbidities, previous drug use, risk factors not captured in the FRAX model (e.g., frailty, falls, vitamin D deficiency, increased bone turnover, interval significant decline in bone density) and possible under- or over-estimation of fracture risk by FRAX. Optional alternative screening schedule based on april Melchor., [facility] May 03, 2011 for patients with osteopenia (based on hip BMD T-score) is as follows: * advanced osteopenia (T scores -2.00 to -2.49), BMD testing every year * moderate osteopenia (T scores -1.50 to -1.99), BMD testing every 5 years mild osteopenia or normal BMD (T scores -1.50 and higher), BMD testing every 15 years -------- FINAL REPORT -------- Dictated By: Stephanie Banerjee Dictated Date: 01/26/2025 09:55 ET Assigned Physician: Stephanie Banerjee Reviewed and Electronically Signed By: Stephanie Banerjee Signed Date: 01/26/2025 09:57 ET Workstation ID: [id number] Transcribed By: Self Edit Transcribed Date: 01/26/2025 09:55 ET Narrative 01/26/2025 9:57 AM EDT BONE DENSITY SCAN (DEXA): FINDINGS: Lumbar Spine T-score is -1.9. (SD relative to 20-29 y/o adult) Z-score is 0.1. (SD relative to age matched peers) This is considered osteopenia by WHO criteria. Left Hip T-score is -1.8. Z-score is -0.3. This is considered osteopenia by WHO criteria. Comparison exam(s): 08/27/2021. No statistically significant change in bone mineral density. Procedure Note Stephanie Banerjee MD - 01/26/2025 BONE DENSITY SCAN (DEXA): FINDINGS: Lumbar Spine T-score is -1.9. (SD relative to 20-29 y/o adult) Z-score is 0.1. (SD relative to age matched peers) This is considered osteopenia by WHO criteria. Left Hip T-score is -1.8. Z-score is -0.3. This is considered osteopenia by WHO criteria. Comparison exam(s): 08/27/2021. No statistically significant change inbone mineral density. IMPRESSION: Osteopenia by WHO criteria. This patient has a 5.8% risk of majorosteoporotic fracture and a 0.9% risk of hip fracture over the next 10years. (World Health Organization Fracture Risk Assessment) [facility] Department of Internal Medicine recommendsusing National Osteoporosis Foundation (NOF) guidelines in treatmentdecisions related to osteoporosis. NOF guidelines suggest consideringtreatment for postmenopausal women and men aged 50 or older presentingwith the following: History of hip or vertebral fracture. T-score = -2.5 (DXA) at the femoral neck, total hip, or spine, afterappropriate evaluation to exclude secondary causes. Low bone mass (T-score between -1.0 and -2.5 at the femoral neck or spine)AND a 10-year probability of a hip fracture = 3% OR a 10-year probabilityof a major osteoporosis-related fracture = 20% based on the [place]-adapted WHOalgorithm Please note that all treatment decisions require clinical judgment andconsideration of individual patient factors, including patientpreferences, co-morbidities, previous drug use, risk factors not capturedin the FRAX model (e.g., frailty, falls, vitamin D deficiency, increasedbone turnover, interval significant decline in bone density) and possibleunder- or over-estimation of fracture risk by FRAX. Optional alternative screening schedule based on april Melchor., NEJMJanuary 2011 for patients with osteopenia (based on hip BMD T-score)is as follows: * advanced osteopenia (T scores -2.00 to -2.49), BMD testing every year * moderate osteopenia (T scores -1.50 to -1.99), BMD testing every 5years mild osteopenia or normal BMD (T scores -1.50 and higher), BMD testingevery 15 years -------- FINAL REPORT -------- Dictated By: Stephanie Banerjee Dictated Date: 01/26/2025 09:55 ET Assigned Physician: Stephanie Banerjee Reviewed and Electronically Signed By: Stephanie Banerjee Signed Date: 01/26/2025 09:57 ET Workstation ID: [id number] Transcribed By: Self Edit Transcribed Date: 01/26/2025 09:55 ET Rosemary DIAZ IMG DXA PROCEDURES Kym l Result * Comprehensive metabolic panel (03/17/2024 12:05 PM EST) Sodium 139 133 - 145 mmol/L LAB CHEMISTRY METHOD 03/17/2024 2:03 PM [facility] Potassium 4.3 3.5 - 5.5 mmol/L LAB CHEMISTRY METHOD 03/17/2024 2:03 PM [facility] Chloride 105 96 - 110 mmol/L LAB CHEMISTRY METHOD 03/17/2024 2:03 PM [facility] CO2 30 21 - 32 mmol/L LAB CHEMISTRY METHOD 03/17/2024 2:03 PM [facility] Anion Gap 4 3 - 11 LAB CHEMISTRY METHOD 03/17/2024 2:03 PM [facility] Glucose 81 70 - 100 mg/dL LAB CHEMISTRY METHOD 03/17/2024 2:03 PM [facility] BUN 15 5 - 25 mg/dL LAB CHEMISTRY METHOD 03/17/2024 2:03 PM [facility] Creatinine 1.02 0.50 - 1.10 mg/dL LAB CHEMISTRY METHOD 03/17/2024 2:03 PM [facility] eGFR 60 >=60 mL/min/1. 73m2 LAB CHEMISTRY METHOD 03/17/2024 2:03 PM [facility] Comment:Calculation based on the Chronic Kidney Disease Epidemiology Collaboration (CKD-EPI) equation refit without adjustment for race. BUN/Creatinine Ratio 14.7 LAB CHEMISTRY METHOD 03/17/2024 2:03 PM [facility] Calcium 9.0 8.5 - 10.5 mg/dL LAB CHEMISTRY METHOD 03/17/2024 2:03 PM [facility] AST (SGOT) 16 10 - 42 unit/L LAB CHEMISTRY METHOD 03/17/2024 2:03 PM [facility] ALT (SGPT) 16 10 - 60 unit/L LAB CHEMISTRY METHOD 03/17/2024 2:03 PM [facility] Alkaline Phosphatase 108 42 - 121 unit/L LAB CHEMISTRY METHOD 03/17/2024 2:03 PM [facility] Total Protein 6.8 6.0 - 8.0 g/dL LAB CHEMISTRY METHOD 03/17/2024 2:03 PM [facility] Albumin 3.5 3.2 - 5.0 g/dL LAB CHEMISTRY METHOD 03/17/2024 2:03 PM [facility] Total Bilirubin 0.3 0.0 - 1.4 mg/dL LAB CHEMISTRY METHOD 03/17/2024 2:03 PM [facility] Blood Venous blood specimen / Unknown Venipuncture / Unknown 03/17/2024 12:05 PM EST 03/17/2024 1:41 PM EST Destini DIAZ LAB BLOOD ORDERABLES Final Re sult [facility] [address] [place] [address], * SCREENING MAMMOGRAPHY BI 2-VIEW BREAST INC [...] of left breast cancer, status post lumpectomy [id number]. Study: SCREENING MAMMOGRAPHY BI 2-VIEW BREAST INC [...] in 12 months. BI-RADS: Category 2: Benign us Jessica Ricketts MD IMG XR PROCEDURES Final Res ult * Hm Depression Screening (08/05/2023) Pathologist [facility] Depression Screening abstracted [facility] Provider HEALTH MAINTENANCE Final Result * Lipid panel (08/05/2023) [facility] LDL/HDL Ratio 0 0 - 4 Triglycerides 82 0 - 150 mg/dL Cholesterol 113 0 - 200 mg/dL HDL 56 >=40 mg/dL LDL Cholesterol 41 0 - 100 mg/dL Blood Venous blood specimen / Unknown [facility] Provider LAB BLOOD ORDERABLES Kym l Result * Hepatitis C Screening (05/29/2019) Pathologist [facility] Hepatitis C Screening abstracted [facility] Provider HEALTH MAINTENANCE Final Result * Colonoscopy (10/21/2018) [facility] Colonoscopy no interpretation , abstracted Anatomical Region Laterality Modality Other [facility] Provider HEALTH MAINTENANCE Final Result from Last 3 Months or Most Recently Relevant to Health Maintenance Insurance [employer] MED[employer]ARE Member Subscriber Plan / Payer (Ef fective 2023-Present) Name:Kasandra Nair Relation to Subscriber:Self Name:Kasandra Puentes Payer ID:[id number] Group ID:[id number] Type:Not on file Address: [address] [facility] [place] [phone] Care Teams Game Master Relationship Specialty Start Date End Date Gurmeet Park MD [address] [place] [address] [place] [phone] PCP - General Internal Medicine 12/29/19
--- OUTSIDE RECORDS SUMMARY | 2025-02-11 13:38 | XMS_ITS | Encounter Summary ---
Author Organization [employer] Address [address] [place] [address] Care Team Providers Care Huc Ob Name Role Phone Unavailable Primary Care Provider [...]
--- OUTSIDE RECORDS SUMMARY | 2025-02-11 13:38 | XMS_ITS | Clinical Summary ---
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 This assay detects E6/E7 viral messenger RNA (mRNA) from 14 high-risk HPV types (16,18,31,33,35,39,45,51, 52,56,58,59,66,68). For additional information please refer to: http://education.Checkout10/faq/AVO712b9 (This link is being provided for informational/ educational purposes only.) Test Performed by [employer], [facility], [address] [place] [id number] Guido Tellez M.D., Ph.D., Director of Laboratories , [facility] [id number] Please note: Effective 12/26/2015, HPV testing will be performed using [employer]'s APTIMA test which targets mRNA. Detecting mRNA instead of DNA, as in older methods, offers significant improvements in specificity. 03/20/2017 9:46 AM EST us Sally Jacobo CNM HISTORICAL/NON ORDERABLE LABS Final Result [facility] [address] from Last 3 Months or Most Recently Relevant to Health Maintenance
== END 2025-02-11 11:39 | disposition home or self-care (01) ==
LOC: HO.HSM 10:55
PROVIDERS: PCP Internal Medicine; Visit Provider Registered Nurse
DX: R25.1 Tremor, unspecified (principal); M50.90 Cervical disc disorder, unspecified, unspecified cervical region
CPT/HCPCS: 99214

== ENCOUNTER → 2025-02-11 10:55 | Outpatient (BNVA) | payer OTHER, SELFPAY ==
[2023-08-15 15:05] VITALS: BP 114/62; BMI 21.8
== END ==
PROVIDERS: PCP Internal Medicine; Visit Provider Registered Nurse
DX: R25.1 Tremor, unspecified (principal); M50.90 Cervical disc disorder, unspecified, unspecified cervical region
CPT/HCPCS: 99212

== ENCOUNTER → 2025-03-26 08:55 | Outpatient (REF) | payer OTHER, SELFPAY ==
[2023-08-15 15:05] VITALS: BP 114/62; BMI 21.8
--- NOTE | ~2025-03-26 | NM_ITS ---
Lexiscan Myocardial perfusion study Indication: Chest pain to evaluate for myocardial ischemia Technique: The patient was brought in for a Lexiscan perfusion study on 03/26/2025 and was injected 0.4 mg of Lexiscan intravenously. Within a minute of this injection 25 mCi of sestamibi was given intravenously. Images were obtained using the SPECT gamma camera interlaced with the gating device. Images were obtained in supine position. Resting perfusion study was performed on 03/29/2025. Patient was administered 25 mCi of sestamibi intravenously at rest. Images were then obtained in supine position. Images were processed with the software and compared side to side in short axis, horizontal long axis and vertical long axis views.mGy-cm. Images obtained without without CT attenuation. Total DLP 75 Findings: The stress perfusion study showed nonattenuated images show mild thinning and reduced uptake in the basal septum of the LV myocardium. Attenuated corrected images show normal uptake of radiotracer in all segments of the LV myocardium. The gated study shows normal LV systolic function with calculated LVEF of 72%. LV cavity is normal in size. The gated study shows normal systolic wall thickening and contraction of segments. Resting study shows no change in perfusion pattern compared to stress perfusion study. Gating at rest reveals normal systolic wall motion with ejection fraction at greater than 60%. The findings are consistent with normal myocardial perfusion. NM/NM cardiolite stress test Impression: 1. Myocardial perfusion imaging study shows normal myocardial perfusion 2. Gated LVEF is 72% 3. Transient ischemic dilatation not present Nondiagnostic changes on EKG. Electronically signed by: Mitul Sidhu MD 03/29/2025 03:26 PM [facility]
--- NOTE | 2025-03-26 08:58 | CA_ITS ---
Acquisition Time: 2025-03-26 09:39:05 Total Exercise Time: 00:02:19 Test Indications: CP Medications: SEE H&P Protocol: KELECHI Max HR: 142 BPM 93% of Pred: 152 BPM Max BP: 160/70 mmHG Max Work Load: 4.6 METS Exercise stres test with exercise 2 mins 19 secs of Kelechi Protocol, achieving 825 MPHR, requesting to stop due to fatigue, no chest pain. No EKG changes at achieved workload. Test switched to Lexiscan. Pharmacological stress test with Lexiscan completed per protocol, while swinging her legs in chair, with reports of SOB, without any arrythmias, with normotensive response to injection. Nondiagnostic for ischemia. In recovery, pt's breathing improved to baseline. Nuclear images pending. Test reviewed with Dr. Sidhu. Referred By: Jewel Willis Electronically Signed By: Mayur Ny
== END ==
LOC: HO.CARD 08:55
PROVIDERS: PCP Internal Medicine; Visit Provider Internal Medicine Cardiovascular Disease
DX: R07.9 Chest pain, unspecified (principal)
CPT/HCPCS: 78452; 93017; A9500; J0280; J2785

== ENCOUNTER → 2025-03-26 08:58 | Outpatient (BNV) | payer OTHER, SELFPAY ==
[2023-08-15 15:05] VITALS: BP 114/62; BMI 21.8
== END ==
PROVIDERS: PCP Internal Medicine
DX: R06.02 Shortness of breath (principal)
CPT/HCPCS: 78452; 93016; 93018